=== PATIENT | male | born 1975 | race Caucasian/White ===

== ENCOUNTER 2019-07-30 07:38 | Outpatient (CLI) | payer OTHER, SELFPAY ==
--- NOTE | ~2019-07-30 | XR_ITS ---
XR abdomen/kub 1V 07/30/2019 07:55 Indication: Renal stone Procedure: KUB Comparison: Comparison to multiple prior studies sequentially, with oldest reviewed study dated 03/22. Findings: There is a right renal stone. There is a probable distal right ureteral stone near the expe cted location of the UVJ measuring 4 mm. Bowel gas pattern is nonobstructive. No acute osseous abnorm ality. Impression: 1: Probable distal right ureteral stone measuring 4 mm near the expected location of the UVJ. 2: Right nephrolithiasis. Reviewed, dictated and finalized at location A. Impression: 1: Probable distal right ureteral stone measuring 4 mm near the expected locati on of the UVJ. 2: Right nephrolithiasis.
== END 2019-07-30 07:39 | disposition home or self-care (01) ==
LOC: ANHIMG 07:43
PROVIDERS: PCP Internal Medicine; Visit Provider Urology
DX: N20.0 Calculus of kidney (principal)
CPT/HCPCS: 74018

== ENCOUNTER 2020-11-23 07:07 | Observation (INO) | payer OTHER, SELFPAY ==
[2020-11-23] VITALS (12 sets, daily range): BP systolic 95–144; BP diastolic 64–100; PULSE 59–93; RESP 10–20; TEMP 35.7–37.2; O2SAT 97–100; BMI 27.2
--- NOTE | ~2020-11-23 | CT_ITS ---
EXAMINATION: CT abdomen pelvis wo con DATE: 11/23/2020 07:57 INDICATION: Left flank pain TECHNIQUE: Computed tomography (CT) of the abdomen and pelvis was performed without intravenous contr ast. The dose-length product (DLP) was 203.51 mGy-cm. Automated exposure control and iterative recons truction technique were employed. COMPARISON: 01/24/2019 FINDINGS: The lung bases are clear. The heart size is normal. The liver, spleen, pancreas, gallbladde r, and adrenal glands are normal. There is a 6 mm stone at the left ureteropelvic junction which caus es moderate hydronephrosis. Nonobstructing stones in the mid and and lower pole of the right kidney m easure 6 mm and 8 mm, respectively. A circumaortic left renal vein is noted. No pathologically enlarg ed abdominal or pelvic lymph nodes are identified. There is no free intraperitoneal gas or evidence o f bowel obstruction. There are changes of right hemicolectomy. There is mild lumbar spondylosis. IMPRESSION: 1. 6 mm stone of the left ureteropelvic junction causing moderate hydronephrosis. 2. Nonobstructing right nephrolithiasis. Reviewed, dictated and finalized at location A. IMPRESSION: 1. 6 mm stone of the left ureteropelvic junction causing moderate hydronephrosi s. 2. Nonobstructing right nephrolithiasis.
--- NOTE | ~2020-11-23 | XR_ITS ---
EXAMINATION: XR retrograde pyelo w/stent LT INDICATION: Left ureteral stone TECHNIQUE: 27 intraoperative fluoroscopic images are submitted for review. Total fluoroscopic time is 17.8 seconds. 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 Fluoroscopic images demonst rate retrograde opacification of a mildly dilated left renal collecting system. Final images demonstr ate a left internal ureteral stent in expected position. IMPRESSION: 1. Left ureterolithiasis with left internal ureteral stent placed in expected position. Reviewed, dictated and finalized at location A. IMPRESSION: 1. Left ureterolithiasis with left internal ureteral stent placed in expected p osition.
[2020-11-23 07:23] LABS: Basophils Absolute Auto 0.1 K/mm3 (0.0-0.1); Basophils Percent Auto 0.9 % (0.2-1.2); Eosinophils Absolute Auto 0.2 K/mm3 (0-0.3); Eosinophils Percent Auto 1.9 % (0-4.4); Hematocrit 41.3 % (42.0-52.0); Hemoglobin 13.8 g/dL (14.0-18.0); Immature Granulocyte Absolute 0.03 K/mm3 (0.00-0.031); Immature Granulocyte Percent A 0.4 % (0-0.5); Lymphocytes Absolute Auto 1.48 K/mm3 (0.9-3.2); Lymphocytes Percent Auto 18.8 % (18.3-44.2); Mean Corpuscular HGB Conc 33.4 g/dl (32-36); Mean Corpuscular Volume 89.8 fl (80-100); Mean Platelet Volume 9.5 fl (7.4-10.4); Monocytes Absolute Auto 0.6 K/mm3 (0.1-0.6); Monocytes Percent Auto 7.6 % (2.6-8.5); Neutrophils Absolute Auto 5.6 K/mm3 (1.3-6.7); Neutrophils Percent Auto 70.4 % (45.5-73.1); Platelet Count Result 253 k/mm3 (150-375); Red Cell Distribution Width 12.9 % (11.5-14.5); White Blood Count 7.9 K/mm3 (4.5-10.0)
--- NOTE | 2020-11-23 07:29 | ED.ABDPAIN ---
HPI - Abdominal Pain General Chief Complaint: Abdominal Pain Stated Complaint: Left flank pain Time Seen by Provider: 11/23/20 07:12 Source: patient Mode of arrival: ambulatory Limitations: no limitations History of Present Illness HPI narrative: Patient is a 44-year-old male complaining of left flank pain, sudden onset, 5 out of 10, sharp, nonradiating accompanied by nausea started this morning. Patient states that he has a history of kidney stones. Patient denies any chest pain, shortness of breath, abdominal pain, vomiting, diarrhea, fever or chills. Related Data Home Medications Medication Instructions Recorded Confirmed buspirone 5 mg tablet 5 mg PO DAILY tablet 01/08/20 07/22/20 duloxetine 60 mg capsule,delayed 90 mg PO DAILY cap 01/08/20 07/22/20 release infliximab 100 mg intravenous IVPB 01/08/20 07/22/20 solution multivitamin,fx-zayd-arcosoir 1 tablet PO DAILY 01/08/20 07/22/20 sildenafil 50 mg tablet 50 mg PO DAILY PRN 01/08/20 07/22/20 infliximab-dyyb 100 mg intravenous IV 07/22/20 07/22/20 solution Allergies Allergy/AdvReac Type Severity Reaction Status Date / Time No Known Allergies Allergy Verified 11/23/20 08:57 Review of Systems Review of Systems: All systems reviewed & are unremarkable except as noted in HPI and below Constitutional: Constitutional: Denies body ache(s), Denies chills, Denies excessive sweating, Denies fatigue, Denies fever(s), Denies headache(s), Denies lethargy, Denies malaise, Denies weakness and Denies weight loss Eyes: Eyes: Denies blurry vision, Denies change in vision and Denies loss of vision ENT: Denies dizziness, Denies ear discharge, Denies headache(s), Denies lip swelling, Denies epistaxis, Denies nasal congestion, Denies neck pain, Denies throat swelling and Denies tongue swelling Cardiovascular: Cardiovascular: Denies chest pain, Denies chest pain at rest, Denies chest pain with activity, Denies diaphoresis, Denies rapid heart rate, Denies edema, Denies irregular heart rhythm, Denies lightheadedness, Denies palpitations, Denies dyspnea and Denies dyspnea on exertion Respiratory: Respiratory: Denies chest congestion, Denies cough, Denies hemoptysis, Denies dyspnea and Denies dyspnea on exertion Gastrointestinal: Gastrointestinal: Denies abdominal pain, Denies melena, Denies hematochezia, Denies diarrhea, Denies nausea, Denies vomiting and Denies hematemesis Musculoskeletal: Musculoskeletal: Denies abnormal gait, Denies deformity, Denies joint swelling, Denies limited range of motion, Denies neck pain and Denies numbness Neurologic: Denies Abnormal speech present, Denies abnormal gait, Denies confusion, Denies dizziness, Denies headache(s), Denies focal weakness, Denies loss of vision, Denies numbness, Denies Other visual disturbances, Denies Sensory deficit (Neuro) and Denies weakness Psychiatric: Psychiatric: Denies confusion, Denies depression, Denies auditory hallucinations, Denies homicidal ideation and Denies suicidal ideation Endocrine: Endocrine: Denies cold intolerance, Denies excessive sweating, Denies fatigue, Denies heat intolerance and Denies palpitations Hematologic/Lymphatic: Hematologic/Lymphatic: Denies easy bleeding and Denies easy bruising Allergic/Immunologic: Allergic/Immunologic: Denies lip swelling, Denies throat swelling and Denies tongue swelling [facility] Family History Family History Sibling Patient's brother is in good health Social History Social History Smoking status: Never smoker Second hand tobacco smoke exposure: No Alcohol intake: never Comments Past medical history: Hypertension, kidney stones Family history: Negative for any hypertension, coronary artery disease, diabetes Social history: Non-smoker no EtOH or drug use Exam Const: General: cooperative, healthy appearing, comfortable, no acute distress, well d
[2020-11-23 07:35] LABS: Anion Gap 12 mmol/L (8-16); Blood Urea Nitrogen 17 mg/dL (9-20); Calcium 9.3 mg/dL (8.4-10.2); Carbon Dioxide 21 mmol/L (22-30); Chloride 107 mmol/L (98-107); Estimated CRCL calculation 60 ml/min; Estimated Glomerular Filt Rate 47; Glucose 132 mg/dL (75-110); Potassium 3.5 mmol/L (3.4-5.0); Sodium 140 mmol/L (137-145)
[2020-11-23] MEDS: KETOROLAC 30 MG/ML VIAL (*BKC) IV PUSH (07:44)
[2020-11-23] MEDS: SODIUM CHLORIDE 0.9% IV 1,000 ML 999 ML IV CONT (07:44)
[2020-11-23] MEDS: PROMETHAZINE HCL 25 MG/ML AMPUL 12.5 MG IV PUSH (07:45)
[2020-11-23] MEDS: ONDANSETRON INJ 4 MG/2 ML VIAL IV PUSH ×2 (08:18→09:37)
[2020-11-23 08:44] LABS: Add Urine Microscopic? YES; Appearance Urine Cloudy (Clear); Bacteria Urine Trace /hpf; Bilirubin Urine Negative (Negative); Blood Urine 3+ (Negative); Color Urine Amber (Yellow); Glucose Urine UA Negative (Negative); Ketones Urine Negative (Negative); Leukocyte Esterase Ur Negative LEU/UL (Negative); Mucus Urine Heavy /lpf; Nitrate Urine Negative (Negative); Protein Urine 2+ mg/dL (Negative); RBC Urine >75 /hpf (0-2); Urobilinogen Urine Negative mg/dL (<2.0); WBC Urine 21-30 /hpf
[2020-11-23 08:45] LABS: Specific Grav Ur 1.031 (1.001-1.035)
[2020-11-23] MEDS: LACTATED RINGERS 1,000 ML 999 ML IV CONT (09:07)
[2020-11-23] MEDS: HYDROmorphone HCL INJ (*CRX) 1 MG/ML SYR 0.5 MG IV PUSH (09:38)
--- NOTE | 2020-11-23 10:30 | PC.NURSE ---
Report called to third floor room 344, Cee RN
[2020-11-23] MEDS: LACTATED RINGERS 1,000 ML 30 ML IV CONT ×2 (11:10→12:02)
--- NOTE | 2020-11-23 11:17 | WPDURCON ---
Assessment and Plan Assessment and plan (1) Calculus of left ureter: Onset Date: ~11/23/20 Code(s): N20.1 - Calculus of ureter Status: Acute Assessment and Plan: Patient with 6mm Left UPJ stone and elevated Cr as well as 6 & 8mm RIGHT nonobstructing stones. Patient with persistent PO intolerance PLAN: -Admit to hospitalist for pain control, management of PO intoelrance, and hydration for JED -Keep NPO -Will add on for Cysto, Left Retrograde Pyelogram, Left Ureteral Stent -Patient will need outpatient stone surgery with either his established Urologist, Dr. Paula/Jonatan, or one of their partners who cover [facility] facilities (will also need eventual Right Renal Stones addressed, as well) (2) Calculus of kidney: Code(s): N20.0 - Calculus of kidney Status: Acute Urology Consult Note HPI Date Seen: 11/23/20 Primary Care Provider: Brodie Fierro, Consult Narrative Narrative: Ector Phan is a 44 year old male, established patient of Drs. Keith and Nisa, who has a history of kidney stones. He presents to the ER with PO intolerance and left flank pain for the past day. No fevers. He has required ESWL in the past. He last saw Dr. Paula 1 year ago, was to follow up but it does not appear he did. He has had ESWL in the past. He works at [employer] so has had his cases at [facility] facilities in the past although they live 5 minutes from [place]. He has also had stents in the past, and he and his report that his only issue with stents is nausea. In the ER, his CT AP shows a 6mm Left UPJ stone as well as a 6 & 8 mm RIGHT renal stone. His Cr is 1.6, normal serum WBC, with a UA that has both WBC and RBC, but is nit negative. Review of Systems Review of Systems: All systems reviewed & are unremarkable except as noted in HPI and below PMFSH Family History Family History Sibling Patient's brother is in good health Social History Social History Smoking status: Never smoker Second hand tobacco smoke exposure: No Alcohol intake: never Meds Home Medications and Allergies Home Medications Medication Instructions Recorded Confirmed Type buspirone 5 mg tablet 5 mg PO DAILY tablet 01/08/20 07/22/20 History duloxetine 60 mg capsule,delayed 90 mg PO DAILY cap 01/08/20 07/22/20 History release infliximab 100 mg intravenous IVPB 01/08/20 07/22/20 History solution multivitamin,ln-akos-wgxlneeo 1 tablet PO DAILY 01/08/20 07/22/20 History sildenafil 50 mg tablet 50 mg PO DAILY PRN 01/08/20 07/22/20 History infliximab-dyyb 100 mg intravenous IV 07/22/20 07/22/20 History solution lisinopril 20 mg tablet 20 mg PO DAILY #90 tablet 10/05/20 Rx Allergies Allergy/AdvReac Type Severity Reaction Status Date / Time No Known Allergies Allergy Verified 11/23/20 08:57 Vital Signs Vital Signs - 24 hr 11/23/20 07:20 11/23/20 09:09 Temperature 36.8 C Pulse Rate 59 L 82 Respiratory Rate 18 18 Blood Pressure 143/100 H 144/87 H Pulse Oximetry 100 100 Exam Const: General: no acute distress Orientation/consciousness: oriented to person, oriented to place and oriented to time HENMT: Head: normal to inspection Eyes: General: appearance normal, both eyes and all related structures Resp: Effort & Inspection: normal respiratory effort Neuro: General: oriented to person, oriented to place and oriented to time Results Labs CBC & Chem 7: 11/23/20 07:17 11/23/20 07:17 Labs: Short CBC 11/23/20 Range/Units 07:17 WBC 7.9 (4.5-10.0) K/mm3 Hgb 13.8 L (14.0-18.0) g/dL Hct 41.3 L (42.0-52.0) % Plt Count 253 (150-375) k/mm3 BMP 11/23/20 07:17 Sodium 140 Potassium 3.5 Chloride 107 Carbon Dioxide 21 L BUN 17 Creatinine 1.60 H Glucose 132 H Calcium 9.3 Urine 11/23/20 Range/Units 08:34
--- NOTE | 2020-11-23 11:18 | WPDHPUPDATE1 ---
History and Physical Update Update Date/Time: 11/23/20 11:18 History and Physical has been reviewed, including an updated exam of the patient. There are NO changes in the patient's condition. Risks, benefits, and alternatives have been discussed and questions answered. Patient agrees to proceed with procedure.
--- NOTE | 2020-11-23 11:18 | WPDANESEPPF ---
Anes - Initial Pre Proc Eval Procedure: Operation Date: 11/23/20 11:15 Proposed Procedures p Cysto, RPG, Stone Ext, Stent Placement(Left) - Jf Vidal MD Date/Time: 11/23/20 11:18 Surgeon: Gareth Davis MD Pre Op Diagnosis: Acute Obstructive Uropathy, Hydronephrosis Patient Data Age: 44 Gender: M Height: 1.85 m Weight: 102.2 kg Last Vital Signs Temp 36.8 C 11/23/20 07:20 Pulse 82 11/23/20 09:09 Resp 18 11/23/20 09:09 BP 144/87 H 11/23/20 09:09 Pulse Ox 100 11/23/20 09:09 Allergies Allergy/AdvReac Type Severity Reaction Status Date / Time No Known Allergies Allergy Verified 11/23/20 08:57 Home Medications Medication Instructions Recorded Confirmed Type buspirone 5 mg tablet 5 mg PO DAILY tablet 01/08/20 07/22/20 History duloxetine 60 mg capsule,delayed 90 mg PO DAILY cap 01/08/20 07/22/20 History release infliximab 100 mg intravenous IVPB 01/08/20 07/22/20 History solution multivitamin,dk-uojt-irswkdpd 1 tablet PO DAILY 01/08/20 07/22/20 History sildenafil 50 mg tablet 50 mg PO DAILY PRN 01/08/20 07/22/20 History infliximab-dyyb 100 mg intravenous IV 07/22/20 07/22/20 History solution lisinopril 20 mg tablet 20 mg PO DAILY #90 tablet 10/05/20 Rx Laboratory Tests 11/23/20 11/23/20 11/23/20 07:17 07:17 08:34 WBC 7.9 K/mm3 K/mm3 (4.5-10.0) RBC 4.60 M/mm3 M/mm3 (4.6-6.20) Hgb 13.8 g/dL L g/dL (14.0-18.0) Hct 41.3 % L % (42.0-52.0) MCV 89.8 fl fl (80-100) MCH 30.0 pg pg (26-34) MCHC 33.4 g/dl g/dl (32-36) RDW 12.9 % % (11.5-14.5) Plt Count 253 k/mm3 k/mm3 (150-375) MPV 9.5 fl fl (7.4-10.4) Immature Gran % (Auto) 0.4 % % (0-0.5) Neut % (Auto) 70.4 % % (45.5-73.1) Lymph % (Auto) 18.8 % % (18.3-44.2) Whiteside % (Auto) 7.6 % % (2.6-8.5) Eos % (Auto) 1.9 % % (0-4.4) Baso % (Auto) 0.9 % % (0.2-1.2) Lymph # (Auto) 1.48 K/mm3 K/mm3 (0.9-3.2) Whiteside # (Auto) 0.6 K/mm3 K/mm3 (0.1-0.6) Eos # (Auto) 0.2 K/mm3 K/mm3 (0-0.3) Baso # (Auto) 0.1 K/mm3 K/mm3 (0.0-0.1) Abs Immat Gran (auto) 0.03 K/mm3 K/mm3 (0.00-0.031) Absolute Neuts (auto) 5.6 K/mm3 K/mm3 (1.3-6.7) Absolute Nucleated RBC 0.0 K/mm3 K/mm3 (0.0-0.012) Nucleated RBC % 0.0 % % (0.0-0.2) Sodium 140 mmol/L mmol/L (137-145) Potassium 3.5 mmol/L mmol/L (3.4-5.0) Chloride 107 mmol/L mmol/L (98-107) Carbon Dioxide 21 mmol/L L mmol/L (22-30) Anion Gap 12 mmol/L mmol/L (8-16) BUN 17 mg/dL mg/dL (9-20) Creatinine 1.60 mg/dL H mg/dL (0.7-1.3) Estim Creat Clear Calc 60 ml/min ml/min Estimated GFR 47 L (59 - ) Glucose 132 mg/dL H mg/dL (75-110) Calcium 9.3 mg/dL mg/dL (8.4-10.2) Urine Color Mia (Yellow) Urine Appearance Cloudy H (Clear) Urine pH 5.0 (5.0-9.0) Ur Specific Lithia 1.031 (1.001-1.035) Urine Protein 2+ mg/dL H mg/dL (Negative) Urine Glucose (UA) Negative mg/dL mg/dL (Negative) Urine Ketones Negative mg/dL mg/dL (Negative) Ur Blood (Man) 3+ H (Negative) Urine Nitrate Negative (Negative) Urine Bilirubin Negative (Negative) Urine Urobilinogen Negative mg/dL mg/dL (<2.0) Leukocyte Esterase Rfl Negative SEE/UL SEE/UL (Negative) Urine RBC >75 /hpf H /hpf (0-2) Urine WBC 21-30 /hpf H /hpf Urine Bacteria Trace /hpf /hpf Urine Mucus Heavy /lpf H /lpf Patient hx anesthesia problems: none Family hx anesthesia problems: none PMFSH Past Medical History Medical History (Reviewed 11/23/20 @ 11:19 by Damien Banuelos
--- NOTE | 2020-11-23 11:21 | W.PM.PROC2 ---
Procedure Note - Detailed Date of Procedure 11/23/20 Pre-op Diagnosis Preoperative Diagnosis: Ureteral Calculus (N20.1) Postoperative Diagnosis: Same Procedures Performed:: 1. Cystoscopy, Left Retrograde Pyelogram, Left Ureteral Stent ([id number]) Findings: Radiopaque stone; stent placed Surgeon: Jf Vidal MD Anesthesia: General Procedure: Prior to the operation an informed consent was obtained. The patient was brought back to the operative suite and a detailed timeout was performed. General anesthesia was induced without complication. The patient was administered IV antibiotics in the prophylactic form. The patient was positioned in the dorsal lithotomy position with close attention to all pressure points and was prepped and draped in sterile fashion. We began the case using a rigid cystoscope to gain access into the bladder under direct visualization per urethra. Cystoscopy was unremarkable. We turned our attention to the left ureteral orifice and cannulated it using a 5 Bengali open-ended ureteral catheter and carpooling.comson wire. We radiologically confirmed the wire to pass up into the renal pelvis before performing a retrograde pyelogram to better delineate the renal pelvis. We could see the 6mm Left UPJ stone as it was radiopaque and limited contrast reaching the kidney. With our wire in place, we placed a 6 east timorese, variable length, double-J ureteral stent with no string. We confirmed excellent position fluoroscopically. The patient's bladder was emptied at the conclusion of the case and the patient tolerated the procedure well. This note was created with the assistance of voice-recognition software and may contain phonetic errors. PLAN: -PACU, transfer to floor for observation given his JED, PO intolerance, and history of PO intolerance with a stent -Will arrange for outpatient stone treatment at [facility] facility due to his insurance coverage Post-op Diagnosis same Procedure Performed Procedures Performed: 1. Cystoscopy, Left Retrograde Pyelogram, Left Ureteral Stent ([id number]) Surgeon Jf Vidal MD Description of Procedure Prior to the operation an informed consent was obtained. The patient was brought back to the operative suite and a detailed timeout was performed. General anesthesia was induced without complication. The patient was administered IV antibiotics in the prophylactic form. The patient was positioned in the dorsal lithotomy position with close attention to all pressure points and was prepped and draped in sterile fashion. We began the case using a rigid cystoscope to gain access into the bladder under direct visualization per urethra. Cystoscopy was unremarkable. We turned our attention to the left ureteral orifice and cannulated it using a 5 Bengali open-ended ureteral catheter and Bentson wire. We radiologically confirmed the wire to pass up into the renal pelvis before performing a retrograde pyelogram to better delineate the renal pelvis. We could see the 6mm Left UPJ stone as it was radiopaque and limited contrast reaching the kidney. With our wire in place, we placed a 6 east timorese, variable length, double-J ureteral stent with no string. We confirmed excellent position fluoroscopically. The patient's bladder was emptied at the conclusion of the case and the patient tolerated the procedure well. This note was created with the assistance of voice-recognition software and may contain phonetic errors. PLAN: -PACU, transfer to floor for observation given his JED, PO intolerance, and history of PO intolerance with a stent -Will arrange for outpatient stone treatment at [facility] facility due to his insurance coverage
[2020-11-23] MEDS: LIDOCAINE HCL 2% GEL UROJET 10 ML PKG MUCOUS MEM (11:46)
--- NOTE | 2020-11-23 11:56 | PM.OP ---
Procedure Note - Brief Procedure Note - Brief Date of procedure: 11/23/20 Pre-op diagnosis: Acute Obstructive Uropathy, Hydronephrosis Surgeon: Preoperative Diagnosis: Ureteral Calculus (N20.1) Postoperative Diagnosis: Same Procedures Performed:: 1. Cystoscopy, Left Retrograde Pyelogram, Left Ureteral Stent ([id number]) Findings: Radiopaque 6mm left UPJ stone; 6Fr variable length left ureteral stent placed Specimens: None Implants: Left ureteral stent EBL: minimal Anesthesia: General Complications: None Dispo: PACU, Floor Surgeon: Jf Vidal MD
--- NOTE | 2020-11-23 13:15 | ADMGEN ---
This patient, Ector Phan, was admitted to Medical Room 344-01. Patient/family oriented to hospital policies and general routines including ID bracelet, bed and alarms, visiting hours, pain management, procedures, bathroom and other care routines, personal items, smoking policy, room service/diet, and visiting hours. Information on how to activate the Rapid Response Team has been discussed. Patient/Family are encouraged to report perceived risks to care and to ask questions if they do not understand what they are told or what they should do.
--- NOTE | 2020-11-23 13:48 | PM.IMHP ---
H&P: HPI History of Present Illness Date/Time: 11/23/20 13:49 Chief Complaint: Abdominal pain Narrative: 44-year-old male with history of kidney stones and Crohn's disease who presents with complaints of abdominal pain. Patient woke up around 5:00 a.m. this morning with left-sided flank/back pain. Pain was very similar to prior episodes when he has had kidney stones. No hematuria but urine was dark. He had nausea and vomiting which is not uncommon for him when he has kidney stones. No fever or chills. His most recent blood work on October 21, 2020 showed a creatinine 1.2. He has been known to have elevated creatinine values when he has kidney stones. Patient states his Crohn's disease is better controlled with the infliximab. Still has diarrhea 5 to 6 times a day and occasional hematochezia but no further abdominal pain. His weight has been stable. He is due for colonoscopy in December. He has no other complaints. Complete review of systems is negative with the exception of occasional acid reflux symptoms after eating and then laying down. Also has a mole on his back that his has been trying to have have evaluated. He is under lot of stress at work because of a recent change in the computer system. Because of the flank/back pain, patient presented to the emergency room for evaluation. In the emergency room, patient was hemodynamically stable. Blood pressure was elevated at 143/100. Creatinine was 1.6. Urine had 3+ blood in greater than [address] scan showed a 6 mm stone in the left UPJ causing moderate hydronephrosis as well as nonobstructing right nephrolithiasis. patient received 2 doses Zofran in the emergency room. He has not had any further nausea vomiting since. He also received IV fluids, Rocephin x1 and dilaudid. Patient was taken to the OR where he underwent stent placement. Patient was subsequently admitted for further care due to his nausea and vomiting and elevated creatinine. He has not eaten since the procedure but he is hungry. Review of Systems Review of Systems: All systems reviewed & are unremarkable except as noted in HPI and below PMFSH Past Medical History Medical History (Updated 11/23/20 @ 15:25 by Julien Davis MD) Crohn's disease, unspecified, without complications Depression with anxiety History of kidney stones with multiple lithotripsies Hypertension Surgical History Surgical History (Updated 11/23/20 @ 13:54 by Julien Davis MD) History of colon resection 1990 History of hemorrhoidectomy 2003 History of inguinal hernia repair Family History Family History (Updated 11/23/20 @ 15:10 by Julien Davis MD) Sibling Patient's brother is in good health Father Heart failure Acute myocardial infarction, Onset Age: 42 Mother COPD (chronic obstructive pulmonary disease) Emphysema lung Grandparent Stomach cancer Other Stomach cancer Social History Social History (Updated 11/23/20 @ 15:11 by Julien Davis MD) Social History: Patient lives at home with his . Lifelong nonsmoker. Rarely drinks alcohol. Denies drug use. Full code. He works in [employer] at [employer]. He nominates his to be the individual who would make medical decisions for him if he is unable. Smoking status: Never smoker Second hand tobacco smoke exposure: No Alcohol intake: never Spiritual care concerns: No Meds Home Medications and Allergies Home Medications Medication Instructions Recorded Confirmed Type buspirone 5 mg tablet 15 mg PO DAILY tablet 01/08/20 11/23/20 History duloxetine 60 mg capsule,delayed 90 mg PO DAILY cap 01/08/20 11/23/20 History release multivitamin,or-zqff-lwkuzfdb 1 tablet PO DAILY 01/08/20 11/23/20 History sildenafil 50 mg tablet 50 mg PO DAILY PRN 01/08/20 11/23/20 History infliximab-dyyb 100 mg intravenous 100 mg IV USEASDIRECTD 07/22/20 11/23/20 History solution lisinopril 20 mg tablet 20 mg PO DAILY #9
[2020-11-23] MEDS: SODIUM CHLORIDE 0.9% IV 1,000 ML 100 ML IV CONT (15:57)
[2020-11-23] MEDS: busPIRone HCL 10 MG, busPIRone HCL 5 MG 15 MG PO (18:57)
[2020-11-23] MEDS: DULoxetine HCL 30 MG CAPSULE.DR 90 MG PO (18:58)
[2020-11-24] MEDS: SODIUM CHLORIDE 0.9% IV 1,000 ML 100 ML IV CONT (02:07)
[2020-11-24 05:19] VITALS: BP 128/77; PULSE 76; RESP 17; TEMP 36.1; O2SAT 97
[2020-11-24 05:48] LABS: Anion Gap 7 mmol/L (8-16); Blood Urea Nitrogen 14 mg/dL (9-20); Calcium 8.5 mg/dL (8.4-10.2); Carbon Dioxide 22 mmol/L (22-30); Chloride 112 mmol/L (98-107); Estimated CRCL calculation 75 ml/min; Estimated Glomerular Filt Rate 60; Glucose 110 mg/dL (75-110); Potassium 3.7 mmol/L (3.4-5.0); Sodium 141 mmol/L (137-145)
--- NOTE | 2020-11-24 07:47 | WPDANESPN ---
Anes - Prog Note Post-Op Date/Time: 11/24/20 07:47 Cardiovascular status: normal Respiratory status: normal Airway patency: baseline Mental status: baseline Post-Op hydration status: normal Vital Signs: Last Vital Signs Temp 36.1 C L 11/24/20 05:19 Pulse 76 11/24/20 05:19 Resp 17 11/24/20 05:19 BP 128/77 11/24/20 05:19 Pulse Ox 97 11/24/20 05:19 Pain Score (VAS): 0/10 I/O: Intake & Output 11/23/20 11/23/20 11/24/20 15:59 23:59 07:59 Intake Total 2550 480 1736 Output Total 950 525 800 Balance 1600 -45 936 Laboratory Tests 11/23/20 07:17 11/24/20 05:20 11/23/20 11/24/20 08:34 05:20 Sodium 141 Potassium 3.7 Chloride 112 H Carbon Dioxide 22 Anion Gap 7 L BUN 14 Creatinine 1.30 Estim Creat Clear Calc 75 Estimated GFR 60 Glucose 110 Calcium 8.5 Urine Color Mia Urine Appearance Cloudy H Urine pH 5.0 Ur Specific [place] 1.031 Urine Protein 2+ H Urine Glucose (UA) Negative Urine Ketones Negative Ur Blood (Man) 3+ H Urine Nitrate Negative Urine Bilirubin Negative Urine Urobilinogen Negative Leukocyte Esterase Rfl Negative Urine RBC >75 H Urine WBC 21-30 H Urine Bacteria Trace Urine Mucus Heavy H Post-procedural complaints: none Patient Feedback: Patient satisfied with anesthetic care.
[2020-11-24] MEDS: MULTIVITS W-FE,MIN CHEWABLE TABLET 1 TABLET PO (08:52)
--- NOTE | 2020-11-24 13:00 | WPDUROPN2 ---
Progress Note: A&P Assessment and Plan (1) Calculus of left ureter: Onset Date: ~11/23/20 Code(s): N20.1 - Calculus of ureter Status: Acute Assessment and Plan: Patient ok to discharge home today, will call to schedule definitive stone management at [facility]. Subjective Subjective Date/Time Seen: 11/24/20 13:00 POD #1 Cystoscopy, left retrograde pyelogram, left stent placement. Patient doing very well, only c/o nausea and pain with urination from his stent, otherwise he is doing well and wants to go home. He is tolerating his diet and activity in the room well. Review of Systems Cardiovascular: Cardiovascular: Denies chest pain Respiratory: Respiratory: Reports no additional respiratory complaints Gastrointestinal: Gastrointestinal: Reports abdominal pain, Reports nausea and Denies vomiting Genitourinary: Genitourinary: Denies hematuria, Reports dysuria, Reports flank pain, Reports urinary frequency and Denies urinary urgency Exam Resp: Effort & Inspection: normal respiratory effort Cardio: Rate: regular rate GI: GI Palp: Yes Soft to palpation and No Tenderness to palpation present (GI) : General: Yes CVA tenderness and Yes no CVA tenderness Extrem: General: no edema Objective Data Vital Signs Vital Signs: Vital Signs - 24 hr 11/23/20 13:20 11/23/20 13:40 11/23/20 14:10 Temperature 98.9 F 96.8 F L 96.3 F L Pulse Rate 77 78 65 Respiratory Rate 20 18 18 Blood Pressure 132/92 H 128/89 135/85 Pulse Oximetry 98 100 99 11/23/20 15:10 11/23/20 20:50 11/23/20 21:30 Temperature 96.3 F L 97.6 F Pulse Rate 65 90 Respiratory Rate 18 18 Blood Pressure 135/85 136/91 H Pulse Oximetry 99 97 97 11/24/20 05:19 Temperature 97 F L Pulse Rate 76 Respiratory Rate 17 Blood Pressure 128/77 Pulse Oximetry 97 Intake/Output Intake/Output: Intake & Output 11/21/20 11/22/20 11/23/20 11/24/20 23:59 23:59 23:59 23:59 Intake Total 3030 2036 Output Total 1475 800 Balance 1555 1236 Meds/Results Medications: Active Medications Generic Name Dose Route Start Last Admin Trade Name Freq PRN Reason Stop Dose Admin Acetaminophen 650 mg 11/23/20 15:25 Acetaminophen 325 Mg Tablet PO Q6H PRN Mild Pain (1-3) or Fever Buspirone HCl 10 mg/ Buspirone 15 mg 11/23/20 14:00 11/23/20 18:57 HCl 5 mg PO 15 mg Q24H TIGRE Administration Duloxetine HCl 90 mg 11/23/20 14:00 11/23/20 18:58 Duloxetine Hcl 30 Mg Capsule.Dr PO 90 mg Q24H TIGRE Administration Multivitamins/Minerals 1 tablet 11/24/20 09:00 11/24/20 08:52 Multivits W-Fe,Min Chewable Tablet PO 1 tablet QAM TIGRE Administration Ondansetron HCl 4 mg 11/23/20 15:25 Ondansetron Inj 4 Mg/2 Ml Vial IV PUSH Q6H PRN Nausea And Vomiting Radiology Results: ITS Impressions Abdomen/Pelvis CT 11/23/20 08:03 IMPRESSION: 1. 6 mm stone of the left ureteropelvic junction causing moderate hydronephrosis. 2. Nonobstructing right nephrolithiasis. Retrograde Pyelogram 11/23/20 14:28 IMPRESSION: 1. Left ureterolithiasis with left internal ureteral stent placed in expected position. Labs Labs: Laboratory Results - last 24 hr 11/24/20 05:20 Sodium 141 Potassium 3.7 Chloride 112 H Carbon Dioxide 22 Anion Gap 7 L BUN 14 Creatinine 1.30 Estim Creat Clear Calc 75 Estimated GFR 60 Glucose 110 Calcium 8.5
[2020-11-24] MEDS: DULoxetine HCL 30 MG CAPSULE.DR 90 MG PO (13:01)
[2020-11-24] MEDS: busPIRone HCL 10 MG, busPIRone HCL 5 MG 15 MG PO (13:01)
--- NOTE | 2020-11-24 13:22 | PM.DS ---
DS: Admitting Diagnosis Admitting Diagnosis Admitting Diagnosis: Abdominal pain DS: Discharge Diagnosis Discharge Diagnosis (1) Acute unilateral obstructive uropathy: Code(s): N13.9 - Obstructive and reflux uropathy, unspecified Status: Acute (2) Hydronephrosis concurrent with and due to calculi of kidney and ureter: Code(s): N13.2 - Hydronephrosis with renal and ureteral calculous obstruction Status: Acute (3) JED (acute kidney injury): Code(s): N17.9 - Acute kidney failure, unspecified Status: Acute (4) Nausea & vomiting: Code(s): R11.2 - Nausea with vomiting, unspecified Status: Acute (5) Hypertension: Code(s): I10 - Essential (primary) hypertension Status: Acute (6) Crohn's disease, unspecified, without complications: Code(s): K50.90 - Crohn's disease, unspecified, without complications Status: Acute DS: Summary Hospital Course Reason for hospitalization: 44yo male with hx of kidney stones here for abdominal pain. Please see H&P for details. Hospital Course: Patient presented to the emergency room for left flank/back pain. In the emergency room, patient was hemodynamically stable. Blood pressure was elevated at 143/100. Creatinine was 1.6. Urine had 3+ blood in greater than [address] scan showed a 6 mm stone in the left UPJ causing moderate hydronephrosis as well as nonobstructing right nephrolithiasis. Patient received 2 doses Zofran in the emergency room. He also received IV fluids, Rocephin x1 and dilaudid. Patient was taken to the OR where he underwent stent placement later that same day. Patient was subsequently admitted for further care due to his nausea and vomiting and elevated creatinine. He did not had any further nausea or vomiting after the procedure. He was continued on IV fluids. His Cr improved to 1.3 today. He was eating without symptoms. No further pain. He feels ready for discharge. Status at Discharge Cognitive/behavioral status at discharge: stable Time Spent with Patient Time attestation: Total time spent providing and/or coordinating discharge services:35 minutes Time spent: Greater than 30 minutes Exam Narrative: Exam Narrative: AF 97.0 128/77 76 17 97% ra Gen - NARD Chest - CTA bilaterally, nml RR CV - RRR S1/S2 Abd - soft, NT/ND, +BS Ext - no pedal edema Psych - normal mood and affect. Skin - warm and dry. Approx 1cm oval mole on the right midback with distinct borders and variation in color within the lesion DS: Data Data Completed and Pending Labs on day of discharge: Labs from last 24 hours 11/24/20 05:20 Sodium 141 Potassium 3.7 Chloride 112 H Carbon Dioxide 22 Anion Gap 7 L BUN 14 Creatinine 1.30 Estim Creat Clear Calc 75 Estimated GFR 60 Glucose 110 Calcium 8.5 Discharge Plan Discharge Attending physician on discharge: Julien Davis Consulting providers: Jf Vidal Discharging Clinician: Julien Davis Anticipated Discharge Date/Time: 11/24/20 13:32 Patient Disposition: Home, Self-Care Activity: as tolerated Diet: regular Discharge Instructions: Urology Instructions: Will call to schedule procedure at [facility]. Call if you develop a fever of > 102, dysuria, urgency, frequency or worsening blood in the urine. Some blood, dysuria and frequency is expected with your stent in place. Please avoid large gathering, wear face coverings in public and practice social distance. Take precautions to avoid falls. Rise slowly from a lying or sitting position. Pause before standing or walking. Contact your doctor or come to the Emergency Room if you have recurrent back pain or other worrisome symptoms. Avoid NSAIDs (ibuprofen, naproxen, Aleve). Tylenol is safe to take. Follow-up with your primary care doctor in 1-2 weeks. Please call for appointment. Patient Instructions: Antibiotic Form, Kidney Stones (DC), Pain M
--- NOTE | 2020-11-25 08:28 | PC.NURSE ---
Urine cx is negative. Dr. Ryan caro.
== END 2020-11-24 14:30 | disposition home or self-care (01) ==
LOC: ANHED 07:22 → ANH3MED 10:20
PROVIDERS: Urology; Admitting Provider Internal Medicine; Emergency Provider Emergency Medicine; PCP Internal Medicine; Visit Provider Internal Medicine
PROC: (CPT 52352; principal; 2020-11-23 11:15)
DX: N13.2 Hydronephrosis with renal and ureteral calculous obstruction (principal); K50.90 Crohn's disease, unspecified, without complications; R11.2 Nausea with vomiting, unspecified; Z87.442 Personal history of urinary calculi; I10 Essential (primary) hypertension
CPT/HCPCS: 52332; 36415; 74176; 74420; 80048; 81001; 85025; 87086; 96360; 96361; 96365; 96375; 96376; 99285; A9270; C1758; C1769; C2617; G0378; J0696; J1100; J1170; J1885; J2250; J2405; J2550; J2704; J3010; J7030; J7120; Q9966

== ENCOUNTER 2021-01-23 09:55 | Outpatient (CLI) | payer OTHER, SELFPAY ==
[2021-01-23 10:36] LABS: Alanine Aminotransferase 69 U/L (4-50); Albumin Level 4.2 g/dL (3.5-5.1); Alkaline Phosphatase 64 U/L (38-126); Anion Gap 6 mmol/L (8-16); Aspartate Amino Transferase 43 U/L (17-59); Bilirubin,Total 0.8 mg/dL (0.2-1.3); Blood Urea Nitrogen 11 mg/dL (9-20); Carbon Dioxide 27 mmol/L (22-30); Chloride 108 mmol/L (98-107); Cholesterol 195 mg/dL (0-200); Estimated Glomerular Filt Rate 59; Glucose 101 mg/dL (65-110); HDL Direct 45 mg/dL; Potassium 3.4 mmol/L (3.4-5.0); Sodium 141 mmol/L (137-145); Triglycerides 183 mg/dL (<150)
[2021-01-23 10:46] LABS: LDL Cholesterol Direct 99 mg/dL
[2021-01-23 11:06] LABS: Prostate Specific Antigen 1.9 ng/mL (< OR = 4.0)
[2021-01-23 11:45] LABS: Folic Acid > 20.0 ng/mL (2.76->20)
== END 2021-01-23 09:56 | disposition home or self-care (01) ==
LOC: ANHLAB 10:00
PROVIDERS: PCP Internal Medicine; Visit Provider Internal Medicine
DX: Z12.5 Encounter for screening for malignant neoplasm of prostate (principal); E53.8 Deficiency of other specified B group vitamins; Z00.00 Encounter for general adult medical examination without abnormal findings
CPT/HCPCS: 36415; 80053; 80061; 82607; 82746; 84153; 84443; G0103

== ENCOUNTER 2021-05-25 22:46 | Emergency (ER) | payer OTHER, SELFPAY ==
--- NOTE | ~2021-05-25 | CT_ITS ---
EXAMINATION: CT abdomen pelvis wo con DATE: 05/26/2021 04:19 INDICATION: Right flank pain. History of kidney stones. TECHNIQUE: Computed tomography (CT) of the abdomen and pelvis was performed without intravenous contr ast. Automated exposure control and iterative reconstruction technique were employed. Exam dose: 245 .62 mGy-cm total exam DLP. COMPARISON: 11/23/2020 CT abdomen pelvis FINDINGS: The lung bases are clear. Normal heart size. No pericardial or pleural effusion. The gallbladder is present. No hepatic, splenic, pancreatic, and adrenal or renal space-occupying mas s lesion is evident. 2.5 mm and 7.8 mm nonobstructing right renal calculi. Approximately 6 mm distal right ureteral calculus with proximal prominent right hydroureteronephrosis and perinephric and periureteral stranding. There are 2 approximately 3 mm or smaller nonobstructing left renal calculi. No left ureteral calculi or left hydroureteronephrosis. The urinary bladder is unremarkable. Prostate calcifications. No bowel obstruction or intraperitoneal free air. Small fat-containing umbilical hernia. Small fat-containing right inguinal hernia. No suspicious osteolytic or osteoblastic lesions. IMPRESSION: 6 mm distal right ureteral calculus with prominent proximal right hydroureteronephrosis and right perinephric and periureteral stranding Bilateral nonobstructive nephrolithiasis Reviewed, dictated and finalized at [facility]. Reviewed, dictated and finalized at [facility]. [facility]
[2021-05-25 22:48] VITALS: BP 161/97; PULSE 64; RESP 14; TEMP 36.2; O2SAT 100
[2021-05-26 01:38] VITALS: BP 149/92; PULSE 69; RESP 16; O2SAT 97
--- NOTE | 2021-05-26 04:14 | ED.ABDPAIN ---
HPI - Abdominal Pain General Chief Complaint: Abdominal Pain Stated Complaint: kidney stone, pain right side Time Seen by Provider: 05/26/21 04:14 Source: patient Mode of arrival: ambulatory Limitations: no limitations History of Present Illness HPI narrative: Patient is a 45-year-old male complaining of right flank pain, 1 out of 10, was 7 out of 10, sharp, radiating to right lower quadrant accompanied by decreased urination that started yesterday. Patient denies any chest pain, shortness of breath, nausea, vomiting, diarrhea, fever or chills. Related Data Home Medications Medication Instructions Recorded Confirmed buspirone 5 mg tablet 15 mg PO DAILY tablet 01/08/20 01/27/21 duloxetine 60 mg capsule,delayed 90 mg PO DAILY cap 01/08/20 01/27/21 release multivitamin,my-kykq-tdcrqzuq 1 tablet PO DAILY 01/08/20 01/27/21 infliximab-dyyb 100 mg intravenous 100 mg IV USEASDIRECTD 07/22/20 01/27/21 solution Allergies Allergy/AdvReac Type Severity Reaction Status Date / Time No Known Allergies Allergy Verified 05/26/21 04:35 Review of Systems Review of Systems: All systems reviewed & are unremarkable except as noted in HPI and below Constitutional: Constitutional: Denies body ache(s), Denies chills, Denies excessive sweating, Denies fatigue, Denies fever(s), Denies headache(s), Denies lethargy, Denies malaise, Denies weakness and Denies weight loss Eyes: Eyes: Denies blurry vision, Denies change in vision and Denies loss of vision ENT: Denies dizziness, Denies ear discharge, Denies headache(s), Denies lip swelling, Denies epistaxis, Denies nasal congestion, Denies neck pain, Denies throat swelling and Denies tongue swelling Cardiovascular: Cardiovascular: Denies chest pain, Denies chest pain at rest, Denies chest pain with activity, Denies diaphoresis, Denies rapid heart rate, Denies edema, Denies irregular heart rhythm, Denies lightheadedness, Denies palpitations, Denies dyspnea and Denies dyspnea on exertion Respiratory: Respiratory: Denies chest congestion, Denies cough, Denies hemoptysis, Denies dyspnea and Denies dyspnea on exertion Gastrointestinal: Gastrointestinal: Denies abdominal pain, Denies melena, Denies hematochezia, Denies diarrhea, Denies nausea, Denies vomiting and Denies hematemesis Musculoskeletal: Musculoskeletal: Denies abnormal gait, Denies deformity, Denies joint swelling, Denies limited range of motion, Denies neck pain and Denies numbness Neurologic: Denies Abnormal speech present, Denies abnormal gait, Denies confusion, Denies dizziness, Denies headache(s), Denies focal weakness, Denies loss of vision, Denies numbness, Denies Other visual disturbances, Denies Sensory deficit (Neuro) and Denies weakness Psychiatric: Psychiatric: Denies confusion, Denies depression, Denies auditory hallucinations, Denies homicidal ideation and Denies suicidal ideation Endocrine: Endocrine: Denies cold intolerance, Denies excessive sweating, Denies fatigue, Denies heat intolerance and Denies palpitations Hematologic/Lymphatic: Hematologic/Lymphatic: Denies easy bleeding and Denies easy bruising Allergic/Immunologic: Allergic/Immunologic: Denies lip swelling, Denies throat swelling and Denies tongue swelling PMFSH Past Medical History Medical History Crohn's disease, unspecified, without complications Depression with anxiety History of kidney stones with multiple lithotripsies Hypertension Surgical History Surgical History History of colon resection 1990 History of hemorrhoidectomy 2003 History of inguinal hernia repair Family History Family History Sibling Patient's brother is in good health Father Heart failure Acute myocardial infarction, Onset Age: 42 Mother COPD (chronic obstructive pulmonary disease) Emphysema lung Grandpar
[2021-05-26 04:30] VITALS: BP 146/95; PULSE 90; RESP 16; TEMP 36.4; O2SAT 98
[2021-05-26] MEDS: SODIUM CHLORIDE 0.9% IV 1,000 ML 999 ML IV CONT (05:03)
[2021-05-26 05:10] LABS: Add Urine Microscopic? YES; Appearance Urine Cloudy (Clear); Bilirubin Urine Negative (Negative); Blood Urine 3+ (Negative); Calcium Oxalate Crystals Urine Present /hpf; Color Urine Yellow (Yellow); Glucose Urine UA Negative (Negative); Ketones Urine Negative (Negative); Leukocyte Esterase Ur Negative LEU/UL (Negative); Mucus Urine Rare /lpf; Nitrate Urine Negative (Negative); Protein Urine 1+ mg/dL (Negative); RBC Urine >75 /hpf (0-2); Squamous Epithelial Cell Urine Rare /hpf (Few); Urobilinogen Urine Negative mg/dL (<2.0)
[2021-05-26 05:15] LABS: Basophils Percent Auto 0.3 % (0.2-1.2); Eosinophils Percent Auto 0.1 % (0-4.4); Hematocrit 39.2 % (42.0-52.0); Hemoglobin 13.3 g/dL (14.0-18.0); Immature Granulocyte Absolute 0.03 K/mm3 (0.00-0.031); Immature Granulocyte Percent A 0.3 % (0-0.5); Lymphocytes Absolute Auto 1.03 K/mm3 (0.9-3.2); Lymphocytes Percent Auto 10.8 % (18.3-44.2); Mean Corpuscular HGB Conc 33.9 g/dl (32-36); Mean Corpuscular Hemoglobin 30.2 pg (26-34); Mean Corpuscular Volume 88.9 fl (80-100); Mean Platelet Volume 9.4 fl (7.4-10.4); Monocytes Absolute Auto 0.6 K/mm3 (0.1-0.6); Monocytes Percent Auto 5.9 % (2.6-8.5); Neutrophils Absolute Auto 7.9 K/mm3 (1.3-6.7); Neutrophils Percent Auto 82.6 % (45.5-73.1); Platelet Count Result 216 k/mm3 (150-375); Red Blood Count 4.41 M/mm3 (4.6-6.20); Red Cell Distribution Width 13.1 % (11.5-14.5); White Blood Count 9.6 K/mm3 (4.5-10.0)
[2021-05-26 05:27] LABS: Lipase 49 U/L (23-300)
[2021-05-26 05:35] VITALS: BP 153/94; PULSE 84; RESP 12; O2SAT 100
[2021-05-26 05:37] LABS: Alanine Aminotransferase 44 U/L (4-50); Alkaline Phosphatase 59 U/L (38-126); Anion Gap 10 mmol/L (8-16); Aspartate Amino Transferase 30 U/L (17-59); Bilirubin,Total 0.8 mg/dL (0.2-1.3); Blood Urea Nitrogen 13 mg/dL (9-20); Calcium 8.9 mg/dL (8.4-10.2); Carbon Dioxide 24 mmol/L (22-30); Chloride 106 mmol/L (98-107); Estimated CRCL calculation 74 ml/min; Estimated Glomerular Filt Rate 59; Glucose 119 mg/dL (65-110); Potassium 3.4 mmol/L (3.4-5.0); Sodium 140 mmol/L (137-145)
[2021-05-26] MEDS: TAMSULOSIN HCL 0.4 MG CAPSULE PO (05:44)
[2021-05-26] MEDS: KETOROLAC 30 MG/ML VIAL (*BKC) IV PUSH (05:45)
[2021-05-26] MEDS: PROMETHAZINE HCL 25 MG/ML AMPUL 12.5 MG IV PUSH (05:47)
[2021-05-26 06:32] VITALS: BP 142/92; PULSE 86; RESP 14; O2SAT 98
== END 2021-05-26 06:32 | disposition home or self-care (01) ==
PROVIDERS: Emergency Provider Emergency Medicine; PCP Internal Medicine
DX: N13.2 Hydronephrosis with renal and ureteral calculous obstruction (principal); K50.90 Crohn's disease, unspecified, without complications; I10 Essential (primary) hypertension; Z87.442 Personal history of urinary calculi; F41.8 Other specified anxiety disorders; Z90.49 Acquired absence of other specified parts of digestive tract
CPT/HCPCS: 36415; 74176; 80053; 81001; 83690; 85025; 87086; 96361; 96374; 96375; 99284; A9270; J1885; J2550; J7030

== ENCOUNTER 2021-05-29 09:52 | Outpatient (CLI) | payer OTHER, SELFPAY ==
--- NOTE | ~2021-05-29 | XR_ITS ---
EXAMINATION: XR abdomen/kub 1V DATE: 05/29/2021 10:03 INDICATION: Right ureteral stone. TECHNIQUE: A supine view of the abdomen on 2 radiographs was obtained. COMPARISON: CT abdomen and pelvis 05/26/2021 FINDINGS: There are no dilated loops of bowel. There are two 5 mm stones in right kidney. There is a 6 mm stone in distal right ureter. IMPRESSION: 1. Stones in the right kidney and distal right ureter. Reviewed, dictated and finalized at [facility]. CAL STAFF MANAGER
== END 2021-05-29 09:53 | disposition home or self-care (01) ==
PROVIDERS: PCP Internal Medicine; Visit Provider Urology
DX: N20.2 Calculus of kidney with calculus of ureter (principal)
CPT/HCPCS: 74018

== ENCOUNTER 2021-06-08 10:59 | Outpatient (CLI) | payer OTHER, SELFPAY ==
--- NOTE | ~2021-06-08 | US_ITS ---
EXAMINATION: US retroperitoneal comp EXAM DATE: 06/08/2021 12:01 INDICATION: Ureteral stone. TECHNIQUE: Multiple grayscale and Doppler images of the kidneys were obtained (by a technologist who performed the scan) and subsequently reviewed. Correlation is made to CT abdomen pelvis 05/26/2021. FINDINGS: Right kidney: There is normal contour and echogenicity. It measures 10.4 x 4.8 x 4.8 centimeters. In ferior calyceal 7 mm stone identified. Mild hydronephrosis, less than the moderate hydronephrosis wa s present on CT scan 2 weeks ago. Left kidney: There is normal contour and echogenicity. It measures 11.9 x 4.2 x 5.2 centimeters. Th ere are no focal renal lesions identified. There is no hydronephrosis. Bladder unremarkable. Bilateral ureteral jets were confirmed, indicating right ureter not completely obstructed from stone if still present. IMPRESSION: 1. Right nephrolithiasis. Mild right hydronephrosis. 2. Bilateral ureteral jets were confirmed. Reviewed, dictated and finalized at [facility]. NESS AGENT
== END 2021-06-08 11:00 | disposition home or self-care (01) ==
LOC: ANHIMG 11:01
PROVIDERS: PCP Internal Medicine; Visit Provider Urology
DX: N20.2 Calculus of kidney with calculus of ureter (principal)
CPT/HCPCS: 76770

== ENCOUNTER 2021-08-14 10:02 | Outpatient (CLI) | payer OTHER, SELFPAY ==
[2021-08-14 10:21] LABS: Basophils Percent Auto 0.5 % (0.2-1.2); Eosinophils Absolute Auto 0.2 K/mm3 (0-0.3); Eosinophils Percent Auto 2.7 % (0-4.4); Hematocrit 40.6 % (42.0-52.0); Hemoglobin 13.8 g/dL (14.0-18.0); Immature Granulocyte Absolute 0.01 K/mm3 (0.00-0.031); Immature Granulocyte Percent A 0.2 % (0-0.5); Lymphocytes Absolute Auto 1.44 K/mm3 (0.9-3.2); Lymphocytes Percent Auto 23.9 % (18.3-44.2); Mean Corpuscular Hemoglobin 30.3 pg (26-34); Mean Corpuscular Volume 89.2 fl (80-100); Mean Platelet Volume 9.2 fl (7.4-10.4); Monocytes Absolute Auto 0.4 K/mm3 (0.1-0.6); Monocytes Percent Auto 7.1 % (2.6-8.5); Neutrophils Percent Auto 65.6 % (45.5-73.1); Platelet Count Result 243 k/mm3 (150-375); Red Blood Count 4.55 M/mm3 (4.6-6.20)
[2021-08-14 10:35] LABS: Alanine Aminotransferase 48 U/L (4-50); Albumin Level 4.2 g/dL (3.5-5.1); Alkaline Phosphatase 55 U/L (38-126); Anion Gap 7 mmol/L (8-16); Aspartate Amino Transferase 33 U/L (17-59); Bilirubin,Total 0.9 mg/dL (0.2-1.3); Blood Urea Nitrogen 16 mg/dL (9-20); Calcium 8.4 mg/dL (8.4-10.2); Carbon Dioxide 27 mmol/L (22-30); Chloride 106 mmol/L (98-107); Estimated Glomerular Filt Rate 55; Glucose 96 mg/dL (65-110); Potassium 3.6 mmol/L (3.4-5.0); Sodium 140 mmol/L (137-145)
== END 2021-08-14 10:03 | disposition home or self-care (01) ==
LOC: ANHLAB 10:04
PROVIDERS: PCP Internal Medicine; Visit Provider Internal Medicine
DX: E53.8 Deficiency of other specified B group vitamins (principal); I10 Essential (primary) hypertension
CPT/HCPCS: 36415; 80053; 82607; 82746; 85025

== ENCOUNTER 2022-06-25 09:44 | Outpatient (CLI) | payer OTHER, SELFPAY ==
[2022-06-25 10:54] LABS: Basophils Absolute Auto 0.1 K/mm3 (0.0-0.1); Basophils Percent Auto 1.2 % (0.2-1.2); Eosinophils Absolute Auto 0.2 K/mm3 (0-0.3); Eosinophils Percent Auto 2.5 % (0-4.4); Hematocrit 42.1 % (42.0-52.0); Hemoglobin 14.3 g/dL (14.0-18.0); Immature Granulocyte Absolute 0.01 K/mm3 (0.00-0.031); Immature Granulocyte Percent A 0.2 % (0-0.5); Lymphocytes Absolute Auto 1.43 K/mm3 (0.9-3.2); Lymphocytes Percent Auto 22.1 % (18.3-44.2); Mean Corpuscular Hemoglobin 30.6 pg (26-34); Mean Platelet Volume 9.5 fl (7.4-10.4); Monocytes Absolute Auto 0.4 K/mm3 (0.1-0.6); Monocytes Percent Auto 6.5 % (2.6-8.5); Neutrophils Absolute Auto 4.4 K/mm3 (1.3-6.7); Neutrophils Percent Auto 67.5 % (45.5-73.1); Platelet Count Result 241 k/mm3 (150-375); Red Blood Count 4.68 M/mm3 (4.6-6.20); Red Cell Distribution Width 13.1 % (11.5-14.5); White Blood Count 6.5 K/mm3 (4.5-10.0)
[2022-06-25 11:06] LABS: Alanine Aminotransferase 66 U/L (6-50); Albumin Level 4.3 g/dL (3.5-5.1); Alkaline Phosphatase 63 U/L (38-126); Anion Gap 7 mmol/L (8-16); Aspartate Amino Transferase 39 U/L (17-59); Bilirubin,Total 0.9 mg/dL (0.2-1.3); Blood Urea Nitrogen 14 mg/dL (9-20); Calcium 8.6 mg/dL (8.4-10.2); Carbon Dioxide 26 mmol/L (22-30); Chloride 109 mmol/L (98-107); Estimated Glomerular Filt Rate > 60; Glucose 93 mg/dL (65-110); Potassium 3.1 mmol/L (3.4-5.0); Sodium 142 mmol/L (137-145)
[2022-06-25 11:17] LABS: Iron 68 ug/dL (49-181)
[2022-06-25 11:26] LABS: Percent Iron Saturation 17 % (20-50)
[2022-06-25 11:35] LABS: Thyroid Stimulating Hormone 0.731 uIU/mL (0.465-4.680)
[2022-06-25 12:11] LABS: Folic Acid > 20.0 ng/mL (2.76->20)
== END 2022-06-25 09:45 | disposition home or self-care (01) ==
LOC: ANHLAB 09:45
PROVIDERS: PCP Internal Medicine; Visit Provider Internal Medicine
DX: D64.9 Anemia, unspecified (principal); R53.83 Other fatigue
CPT/HCPCS: 36415; 80053; 82607; 82746; 83540; 83550; 84443; 85025

== ENCOUNTER 2022-12-17 07:14 | Outpatient (CLI) | payer OTHER, SELFPAY ==
[2022-12-17 07:59] LABS: Alanine Aminotransferase 36 U/L (6-50); Albumin Level 4.2 g/dL (3.5-5.1); Alkaline Phosphatase 67 U/L (38-126); Anion Gap 9 mmol/L (8-16); Aspartate Amino Transferase 28 U/L (17-59); Bilirubin,Total 0.6 mg/dL (0.2-1.3); Blood Urea Nitrogen 14 mg/dL (9-20); Calcium 8.8 mg/dL (8.4-10.2); Carbon Dioxide 23 mmol/L (22-30); Chloride 107 mmol/L (98-107); Estimated Glomerular Filt Rate 59; Glucose 101 mg/dL (65-110); Potassium 3.4 mmol/L (3.4-5.0); Sodium 139 mmol/L (137-145)
== END 2022-12-17 07:15 | disposition home or self-care (01) ==
PROVIDERS: PCP Internal Medicine; Visit Provider Internal Medicine
DX: E87.6 Hypokalemia (principal); K50.813 Crohn's disease of both small and large intestine with fistula; R79.89 Other specified abnormal findings of blood chemistry
CPT/HCPCS: 36415; 80053

== ENCOUNTER 2024-02-12 20:47 | Emergency (ER) | payer OTHER, SELFPAY ==
--- NOTE | ~2024-02-12 | CT_ITS ---
EXAMINATION: CT abdomen pelvis wo con DATE: 02/12/2024 22:34 INDICATION: Right flank pain TECHNIQUE: Computed tomography (CT) of the abdomen and pelvis was performed without intravenous contr ast. Automated exposure control and iterative reconstruction technique were employed. The dose-length product was 668.22 mGy-cm. COMPARISON: 05/26/2021 FINDINGS: Lung bases are clear. Heart size is normal. No pericardial or pleural effusion. And 5 mm cyst in the caudal right hepatic lobe. Gallbladder, spleen, pancreas and bilateral adrenal glands are normal. 4 m m obstructing stone in the mid right ureter. There is moderate right hydroureteronephrosis as well as some periureteral stranding. There is additional 1-2 mm stone at the upper pole of the right kidney and 2 mm and 3 mm nonobstructing stones in the left kidney. Appendix and ileocecal valve are not visu alized with suggestion of prior partial right hemicolectomy with rectal ileocolic anastomosis. No bow el obstruction. The latter is normal. Prostatomegaly measuring 4.8 x 4.0 cm. Small fat-containing rig ht inguinal hernia. There are a few chronically enlarged left perirectal lymph nodes, the largest vlad suring 12 x 11 mm increased from 7 x 7 mm on study dated 04/02/2017 as well as enlarged left external iliac chain lymph node measuring 1.7 x 1.3 cm increased from 12 x 9 mm also in 2017. Mild lumbar and moderate lower thoracic spondylosis. These have been prominent dating back to IMPRESSION: 1. Bilateral nephrolithiasis with obstructing 4 mm mid right ureteral stone with moderate right hydro ureteronephrosis. 2. Chronic left perirectal and internal iliac chain lymphadenopathy which has demonstrated slow progr ession dating back to 2017 which could be either reactive or related to very slowly progressive metas tatic disease. 3. Prostatomegaly. 4. Small fat-containing right inguinal hernia. Reviewed, dictated and finalized at [facility]. IMPRESSION: 1. Bilateral nephrolithiasis with obstructing 4 mm mid right ureteral stone wit h moderate right hydroureteronephrosis. 2. Chronic left perirectal and internal iliac chain lymphadenopathy which has d emonstrated slow progression dating back to 2017 which could be either reactive or related to very slowly progressive metastatic disease. 3. Prostatomegaly. 4. Small fat-containing right inguinal hernia.
[2024-02-12 20:50] VITALS: BP 152/94; PULSE 57; RESP 14; TEMP 36.6; O2SAT 99
[2024-02-12 20:57] VITALS: BP 168/102; PULSE 61; RESP 16; TEMP 36.6; O2SAT 96
[2024-02-12] MEDS: SODIUM CHLORIDE 0.9% IV 1,000 ML 999 ML IV CONT (20:59)
[2024-02-12] MEDS: KETOROLAC 15 MG/ML VIAL (*BKC) IV PUSH ×2 (21:00→23:45)
--- NOTE | 2024-02-12 21:03 | ED.GENADULT ---
HPI - General Adult General Chief complaint: Urogenital-Male Stated complaint: R flank pain Time Seen by Provider: 02/12/24 20:54 History of Present Illness HPI narrative: Patient is a 48-year-old male who presents to the emergency department this evening complaining of right sided flank pain which started around 1:00 p.m. this afternoon. Patient states that he does have a history of kidney stones which she usually present on the right side and states that throughout the day he was trying to fight it and did not want to come in, however, the pain persisted despite him taking Zofran, Flomax and Aleve at home. Patient states that his last kidney stone was approximately 1-2 years ago and at that time he did have a stent placed. Patient admits that the stent has been removed. Admits to nausea but denies any vomiting episodes. Denies any fevers or chills at home and is denying any chest pain or shortness of breath. No additional symptoms or concerns at this time. Related Data Home Medications Medication Instructions Recorded Confirmed buspirone 5 mg tablet 15 mg PO DAILY 01/08/20 05/10/22 multivitamin,mv-zcgy-vzmqvhey 1 tablet PO DAILY 01/08/20 05/10/22 (Complete Multivitamin tablet) infliximab-dyyb 100 mg intravenous 100 mg IV USEASDIRECTD 07/22/20 05/10/22 solution (Inflectra) sertraline 100 mg tablet 100 mg PO DAILY 04/06/23 Allergies Allergy/AdvReac Type Severity Reaction Status Date / Time No Known Allergies Allergy Verified 10/25/23 07:51 Review of Systems Review of Systems: All systems are reviewed and are negative unless stated otherwise in the HPI. [facility] Past Medical History Medical History Crohn's disease, unspecified, without complications Depression with anxiety History of kidney stones with multiple lithotripsies Hypertension Surgical History Surgical History History of colon resection 1990 History of hemorrhoidectomy 2003 History of inguinal hernia repair Family History Family History Sibling Patient's brother is in good health Father Heart failure Acute myocardial infarction, Onset Age: 42 Mother COPD (chronic obstructive pulmonary disease) Emphysema lung Grandparent Stomach cancer Other Stomach cancer Social History Social History Social History: Patient lives at home with his . Lifelong nonsmoker. Rarely drinks alcohol. Denies drug use. Full code. He works in [employer] at [employer]. He nominates his to be the individual who would make medical decisions for him if he is unable. Smoking status: Never smoker Second hand tobacco smoke exposure: No Alcohol intake: never Lack of Transportation: No Lack of Food: Never True Current Housing: I Have Housing Concerned About Future Housing: No Difficulty Paying Gas/Electric Bills: No Difficulty Paying for Meds: No Currently Unemployed: No Education: Bachelor's Degree Difficulty w/ Childcare or Family Care: No Spiritual care concerns: No Exam Narrative: General: Alert, awake, afebrile, in no acute distress. HEENT: PERRL, no rhinorrhea, no post nasal drip, oropharynx clear. Cardiovascular: Regular rate and rhythm, no murmurs, rubs or gallops, no peripheral edema. Respiratory: Clear to auscultation bilaterally, no tachypnea, no wheezing, no rhonchi, no rubs, no respiratory distress. Abdomen: Soft, nontender, nondistended, no rebound, no guarding, no peritoneal signs. Musculoskeletal: No joint swelling or deformity, normal muscle tone. Skin: No rashes or petechia, no signs of infection. Neurological: Alert and oriented to person, place, and time. Follows all commands. No focal deficits, speech is clear and fluent. Course Vital Signs Vital signs: Vital
[2024-02-12 21:08] LABS: Basophils Absolute Auto 0.1 K/mm3 (0.0-0.1); Basophils Percent Auto 0.8 % (0.2-1.2); Eosinophils Absolute Auto 0.2 K/mm3 (0-0.3); Hematocrit 38.7 % (42.0-52.0); Hemoglobin 13.4 g/dL (14.0-18.0); Immature Granulocyte Absolute 0.01 K/mm3 (0.00-0.031); Immature Granulocyte Percent A 0.1 % (0-0.5); Lymphocytes Absolute Auto 1.36 K/mm3 (0.9-3.2); Lymphocytes Percent Auto 18.1 % (18.3-44.2); Mean Corpuscular HGB Conc 34.6 g/dl (32-36); Mean Corpuscular Hemoglobin 31.4 pg (26-34); Mean Corpuscular Volume 90.6 fl (80-100); Mean Platelet Volume 9.4 fl (7.4-10.4); Monocytes Absolute Auto 0.6 K/mm3 (0.1-0.6); Monocytes Percent Auto 7.6 % (2.6-8.5); Neutrophils Absolute Auto 5.4 K/mm3 (1.3-6.7); Neutrophils Percent Auto 71.4 % (45.5-73.1); Platelet Count Result 264 k/mm3 (150-375); Red Blood Count 4.27 M/mm3 (4.6-6.20); Red Cell Distribution Width 13.2 % (11.5-14.5); White Blood Count 7.5 K/mm3 (4.5-10.0)
[2024-02-12 21:20] LABS: Alanine Aminotransferase 21 U/L (6-50); Albumin Level 4.1 g/dL (3.5-5.1); Alkaline Phosphatase 66 U/L (38-126); Anion Gap 11 mmol/L (4-12); Aspartate Amino Transferase 25 U/L (17-59); Bilirubin,Total 0.5 mg/dL (0.2-1.3); Blood Urea Nitrogen 19 mg/dL (9-20); Calcium 9.1 mg/dL (8.4-10.2); Carbon Dioxide 21 mmol/L (22-30); Chloride 105 mmol/L (98-107); Estimated CRCL calculation 62 ml/min; Estimated Glomerular Filt Rate 50; Glucose 141 mg/dL (65-110); Potassium 3.1 mmol/L (3.4-5.0); Sodium 137 mmol/L (137-145)
[2024-02-12] MEDS: POTASSIUM CHLORIDE 20 MEQ PACKET (FOR LIQUID) 40 MEQ PO (21:35)
[2024-02-12 23:00] LABS: Add Urine Microscopic? YES; Appearance Urine Cloudy (Clear); Bacteria Urine None Seen /hpf; Bilirubin Urine Negative (Negative); Blood Urine 3+ (Negative); Color Urine Dark Yellow (Yellow); Glucose Urine UA Negative (Negative); Ketones Urine Trace mg/dL (Negative); Leukocyte Esterase Ur Trace LEU/UL (Negative); Nitrate Urine Negative (Negative); Protein Urine 2+ mg/dL (Negative); RBC Urine >100 /hpf (0-2); Specific Grav Ur 1.024 (1.001-1.035); Squamous Epithelial Cell Urine None Seen /hpf (Few); WBC Urine 0-5 /hpf (0-3); pH Urine 5.5 (5.0-9.0)
[2024-02-12 23:53] VITALS: BP 148/86; PULSE 62; RESP 15; O2SAT 100
== END 2024-02-12 23:53 | disposition home or self-care (01) ==
PROVIDERS: Emergency Provider Emergency Medicine
DX: N13.2 Hydronephrosis with renal and ureteral calculous obstruction (principal); E87.6 Hypokalemia; K50.90 Crohn's disease, unspecified, without complications; F41.8 Other specified anxiety disorders; I10 Essential (primary) hypertension
CPT/HCPCS: 36415; 74176; 80053; 81001; 85025; 96361; 96374; 96375; 99284; A9270; J1885; J7030

== ENCOUNTER 2024-09-21 12:34 | Outpatient (CLI) | payer OTHER, SELFPAY ==
--- NOTE | ~2024-09-21 | CT_ITS ---
EXAMINATION: CT abdomen pelvis wo con DATE: 09/21/2024 12:50 INDICATION: Renal stone TECHNIQUE: Computed tomography (CT) of the abdomen and pelvis was performed without intravenous contr ast. The dose-length product was 212.36 mGy-cm. Automated exposure control and iterative reconstructi on technique were employed. COMPARISON: CT dated 02/12/2024 FINDINGS: Lung bases are unremarkable. Heart size normal. No significant pleural or pericardial effus ion. The liver, spleen, pancreas, adrenal glands and left kidney are unremarkable. There is a punctat e 1 mm nonobstructing right renal stone. Bladder is collapsed. No ureteral stones or hydronephrosis. Gallbladder is present. There is a fat-containing right inguinal hernia. Nonobstructive bowel gas pat tern. There is a circular radiopaque device adjacent to the rectum, of uncertain significance. There are prostate calcifications. No significant vascular abnormality. There is mild mesenteric lymphadeno hannah, likely reactive. Mild levoscoliosis. IMPRESSION: 1. Nonobstructing right nephrolithiasis. No hydronephrosis. Reviewed, dictated and finalized at location A.
--- OUTSIDE RECORDS SUMMARY | 2024-09-21 16:33 | XMS_ITS | Encounter Summary ---
Author Organization [facility] Address [address] [place] [address] Phone Care Team Providers Care Synthetic Chemist Name Role Phone Brodie Fierro MD Primary Care Provider [phone] Tanmay Miller MD PhD Unavailable [phone] Encounter Details Date Type Department Care Team (Late st Contact Info) Description 08/16/2024 Results Follow-Up [facility] Gastroenterology [address] [facility] [address] [place] [address] [place] [address] Tanmay Miller MD PhD [address] [place] [address] Social History Tobacco Use Types Packs/Day Years Used Date Smoking Tobacco: Never Smokeless Tobacco: Never Alcohol Use Standard Drinks/Week Comments Yes 0 (1 standard drink = 0.6 oz pur e alcohol) Occasionally AUDIT-C Answer Date Recorded Q1: How often do you have a drink containing alc ohol? Monthly or less 05/09/2024 Q2: How many drinks containi ng alcohol do you have on a typical day when you are drinking? 1 or 2 05/09/2024 Q3: How often do you have si x or more drinks on one occasion? Never 05/09/2024 Personal Safety Answer Date Recorded Have you ever been in or are you currently in a harmful physical or emotional relationship or is someone making you feel afraid or unsafe? Denies 02/26/2024 Sex and Gender Information Value Date Recorded Sex Assigned at Not on file Legal Sex Male 10:18 AM CLINICAL LABORATORY MANAGER Gender Identity Not on file Sexual Orientation Straight 03/26/2020 2: 29 PM CLINICAL LABORATORY MANAGER documented as of this encounter Plan of Treatment Not on file documented as of this encounter Visit Diagnoses Not on filedocumented in this encounter Care Teams Synthetic Chemist Relationship Specialty Start Date End Date Brodie Fierro MD [address] [place] [address] PCP - General 07/07/16 Tanmay Miller MD PhD [address] [place] [address] Referring Physician Gastroenterology 05/06/21 documented as of this encounter
--- OUTSIDE RECORDS SUMMARY | 2024-09-21 16:33 | XMS_ITS | Encounter Summary ---
Author Organization [facility] Address [address] [place] [address] Phone Care Team Providers Care Gel Coat Sprayer Name Role Phone Brodie Fierro MD Primary Care Provider [phone] Belia Licona MD Unavailable Tanmay Miller MD PhD Unavailable [phone] Encounter Details Date Type Department Care Team (Late st Contact Info) Description 05/09/2018 Orders Only [facility] Scanning, Provider Social History Tobacco Use Types Packs/Day Years Used Date Smoking Tobacco: Never Smokeless Tobacco: Never Alcohol Use Standard Drinks/Week Comments Yes 0 (1 standard drink = 0.6 oz pur e alcohol) Occasionally Sex and Gender Information Value Date Recorded Sex Assigned at Not on file Legal Sex Male 10:18 AM RECEPTIONIST SECRETARY Gender Identity Not on file Sexual Orientation Straight 03/26/2020 2: 29 PM RECEPTIONIST SECRETARY documented as of this encounter Plan of Treatment Not on file documented as of this encounter Procedures Procedure Name Priority Date/Time Associated Diagnosis Comments SCAN - LABS 05/09/2018 documented in this encounter Results * SCAN - LABS (05/09/2018) us Provider Scanning Final Result documented in this encounter Visit Diagnoses Not on filedocumented in this encounter Care Teams Gel Coat Sprayer Relationship Specialty Start Date End Date Brodie Fierro MD [address] [place] [address] PCP - General 07/07/16 Belia Licona MD [address] [place], [place] [id number] Resident Psychiatry 06/05/20 11/16/20 Tanmay Miller MD PhD [address] [place] [address] Referring Physician Gastroenterology 05/06/21 documented as of this encounter
--- OUTSIDE RECORDS SUMMARY | 2024-09-21 16:33 | XMS_ITS | Referral Summary ---
Author Organization [facility] Address [address] [place] [address] Care Team Providers Care Director Mobile Name Role Phone Brodie Fierro MD Primary Care Provider [phone] Tanmay Miller MD PhD Unavailable [phone] Encounters Date Type Department Care Team Description 09/12/2024 1:00 PM CDT Infusion [facility] Infusion Therapy [facility] 5th [place] [address] [place] [address] Crohn's disease of both small and large intestine with fistula (HCC) (Primary Dx) 08/22/2024 Orders Only [facility] Gastroenterology [facility] 12th [place] [address] [place] [address] Candie Brooks RN 08/19/2024 Orders Only [facility] Department of Psychiatry [address] [facility] [address] [place] [address] Mary Anne Gonzalez PA 08/16/2024 Results Follow-Up [facility] Gastroenterology [address] [facility] 12th [place] [address] [place] [address] Tanmay Miller MD PhD 08/16/2024 Results Follow-Up [facility] Gastroenterology [address] [facility] 12th [place] [address] [place] [address] Tanmay Miller MD PhD 08/15/2024 1:23 PM CDT - 08/15/2024 11:59 PM CDT Hospital Encounter [facility] [address] [place] [address] Crohn's disease of both small and large intestine with fistula (HCC) Discharge Disposition: Discharge to home or self care 08/15/2024 2:15 PM CDT Lab [facility] Endocrinology Metabolism and Lipid [address] [place] [address] [place] [address] Crohn's disease of both small and large intestine with fistula (HCC) [K50.813] (Primary Dx) 08/15/2024 1:30 PM CDT Infusion [facility] Infusion Therapy [facility] [address] [place] [address] Crohn's disease of both small and large intestine with fistula (HCC) (Primary Dx) 08/14/2024 11:00 AM CDT Office Visit [facility] Department of Psychiatry [address] [facility] [address] [place] [address] Mary Anne Gonzalez PA ALAN (generalized anxiety disorder) (Primary Dx); MDD (major depressive disorder), recurrent, in partial remission 07/31/2024 Orders Only [facility] Gastroenterology [address] [place] [address] [place] [address] Candie Brooks RN 07/26/2024 Results Follow-Up [facility] Gastroenterology [address] [place] [address] Tanmay Miller MD PhD 07/25/2024 Documentation [facility] Gastroenterology [address] [place] [address] [place] [address] Candie Brooks, SRAVANI C. diff + 07/18/2024 1:30 PM SUPERVISOR WET END Infusion [facility] Infusion Therapy [address] [place] [address] [place] [address] Crohn's disease of both small and large intestine with fistula (HCC) (Primary Dx) 07/17/2024 Telephone [facility] Psychiatry [address] [place] [address] Nadya Norton 07/09/2024 Documentation [facility] Gastroenterology [address] [facility] 12th [place] [address] [place] [phone] Candie Brooks RN Symptoms/recommenda tions 07/09/2024 Orders Only [facility] Gastroenterology [facility] 12th [place] [address] [place] [phone] Candie Brooks RN from Last 3 Months Allergies No known active allergies Medications INFLIXIMAB (REMICADE IV)Indications:l ast 05/18/2021. For crohns Infuse into a venous catheter One infusion every 4 weeks Active gbydshoq-kist-AB -calcium-mins 27 mg iron-400 mcg tabletIndication s:Vitamin Deficiency Prevention Take by mouth every morning Active sildenafiL (VIAGRA) 50 mg tabletIndication s:Erectile Dysfunction Take 1 tablet (50 mg total) by mouth as needed for erectile dysfunction 30 tablet 4 Active sodium, potassium & mag sulfates (SUPREP BOWEL KIT) 17.5-3.13-1.6 gram recon solnIndications: Bowel Evacuation,PLEAS E FOLLOW INSTRUCTIONS FROM GI PHYSICIAN'S OFFICE Begin drinking the first dose around 5-6PM the day before your procedure. Then drink the second dose of SuPREP 4 hours before you leave your house (additional directions comes with kit) 354 mL 4 Active budesonide EC (ENTOCORT EC) 3 mg 24 hr capsuleIndicatio ns:Crohn's Disease Take 3 capsules (9 mg total) by mouth every morning Start after stool studies are submitted 90 capsule 1 5 07/09/19 26 Active lisinopriL (PRINIVIL,ZESTRI L) 20 mg tabletIndication s:hypertension Take 1 tablet (20 mg total) by mouth every morning 90 tablet [address] (CYMBALTA) 30 mg capsule Take 1 capsule (30 mg total) by mouth daily 10 capsule [address] (CYMBALTA) 60 mg capsule Take 1 capsule (60 mg total) by mouth daily In addition to 30 mg for a total of 90 mg 90 capsule 1 Active busPIRone (BUSPAR) 15 mg tablet Take 1.5 tablets (22.5 mg total) by mouth daily 135 tablet 1 Active Active Problems Problem Noted Date Diagnosed Date Other dietary vitamin B12 deficiency anemia 04/22 Assessment & Plan (05/10/2023 5:45 PM SUPERVISOR WET END): The patient's B12 was adequate on his current level of supplementation when last checked. We would like him to continue this for the foreseeable future Major depressive disorder, recurrent episode, mo derate 03/10/2023 Anal polyp 06/03/2021 Overview (06/03/2021): Added automatically from request for surgery [id number] Assessment & Plan (05/10/2023 5:44 PM SUPERVISOR WET END): Happily the patient is not having any trouble since the excision in 2021. If these return, we will try to get him established with a new Colorectal surgeon. High risk medications (not anticoagulants) long- term use 10/16/2020 Assessment & Plan (05/09/2024 5:38 PM SUPERVISOR WET END): He should continue close follow-up with his care team and stay up-to-date with his vaccinations. He plans to get Shingrix once he turns 49 but was offered the option of having it sooner with his infusion if desired as he is eligible before the age of 49 based on his immunosuppression Assessment & Plan (05/10/2023 5:44 PM SUPERVISOR WET END): Based on the patient's immunosuppression, he is eligible for Shingrix and Prevnar 20 Recurrent kidney stones 2019 Assessment & Plan (05/09/2024 5:37 PM SUPERVISOR WET END): Unfortunately patient is not a huge fan of water and is at increased risk for kidney stones because of his Crohn's disease amongst other reasons. We would recommend that he try to incorporate more fluids and may benefit from rehydration formulas and find them more palpable. These may also be better absorbed given his previous bowel surgery and baseline chronic diarrhea. Adding citric acid or citrus fruit to his beverages may also help reduce the risk of calcium carbonate stones. Assessment & Plan (2019 3:09 PM CDT): Unfortunately patients with Crohn's disease are at higher risk for calcium oxalate kidney stones. The patient is advised to drink more water and he can discuss with his urologist whether he would benefit from calcium supplementation or other diet modifications Opioid use disorder, mild, abuse 10/09/2019 Assessment & Plan (05/26/2020 10:36 AM SUPERVISOR WET END): Patient with hx of mild OUD, uses opioids when he has pain from kidney stones and this triggers cravings for him. Sometimes he uses these prescription opioids to feel good but is now holding onto his prescriptions and locking them up. He denies getting opioids from other sources besides his rarely prescribed opioids. Assessment & Plan (03/27/2020 2:22 PM SUPERVISOR WET END): Patient with hx of mild OUD, uses opioids when he has pain from kidney stones and this triggers cravings for him. Sometimes he uses these prescription opioids to feel good but is now holding onto his prescriptions and locking them up. He denies getting opioids from other sources besides his rarely prescribed opioids. Assessment & Plan (01/31/2020 7:36 AM CDT): Patient with hx of mild OUD, uses opioids when he has pain from kidney stones and this triggers cravings for him. Sometimes he uses these prescription opioids to feel good but is now holding onto his prescriptions and locking them up. He denies getting opioids from other sources besides his rarely prescribed opioids. Will continue to monitor closely and let his PCP know. Assessment & Plan (11/19/2019 6:43 AM CDT): Patient with hx of mild OUD, uses opioids when he has pain from kidney stones and this triggers cravings for him. Sometimes he uses these prescription opioids to feel good but is now holding onto his prescriptions and locking them up. He denies getting opioids from other sources besides his rarely prescribed opioids. Will continue to monitor closely and let his PCP know. Assessment & Plan (10/09/2019 7:35 AM CDT): Patient with hx of mild OUD, uses opioids when he has pain from kidney stones and this triggers cravings for him. Sometimes he uses these prescription opioids to feel good but is now holding onto his prescriptions and locking them up. He denies getting opioids from other sources besides his rarely prescribed opioids. Will continue to monitor closely and let his PCP know. ALAN (generalized anxiety disorder) 08/08/2018 Assessment & Plan (06/12/2022 7:47 AM SUPERVISOR WET END): Patient meets criteria for ALAN, continue Cymbalta, continue Buspar. Assessment & Plan (12/10/2021 4:19 PM CDT): Patient meets criteria for ALAN, continue Cymbalta, continue Buspar. Assessment & Plan (05/13/2021 1:29 PM SUPERVISOR WET END): Patient meets criteria for ALAN, continue Cymbalta, continue Buspar. Assessment & Plan (02/03/2021 4:53 PM CDT): Patient meets criteria for ALAN, continue Cymbalta, continue Buspar. Assessment & Plan (05/26/2020 10:36 AM SUPERVISOR WET END): Patient meets criteria for ALAN, continue Cymbalta, continue Buspar. Start therapy. Assessment & Plan (03/27/2020 2:21 PM SUPERVISOR WET END): Patient meets criteria for ALAN, continue Cymbalta, continue Buspar. Start therapy. Assessment & Plan (01/31/2020 7:35 AM CDT): Patient meets criteria for ALAN, continue Cymbalta, continue Buspar. Assessment & Plan (11/19/2019 6:43 AM CDT): Patient meets criteria for ALAN, continue Cymbalta, add Buspar. Assessment & Plan (10/09/2019 7:33 AM CDT): Patient meets criteria for ALAN, continue Cymbalta, consider adding Buspar. Assessment & Plan (04/02/2019 10:28 AM SUPERVISOR WET END): Patient meets criteria for ALAN, continue Cymbalta. Assessment & Plan (01/02/2019 5:40 PM CDT): Patient meets criteria for ALAN, continue Cymbalta. Assessment & Plan (10/10/2018 12:18 PM CDT): Patient meets criteria for ALAN, continue Cymbalta. Assessment & Plan (08/13/2018 7:42 AM CDT): Patient meets criteria for ALAN, recommended that he increase Cymbalta and start psychotherapy. Recurrent major depressive disorder, in partial remission 08/08/2018 Assessment & Plan (06/12/2022 7:47 AM SUPERVISOR WET END): 46 yo M with h/o MDD, ALAN, who now p/w stable mood and anxiety Sx despite psychosocial stressors. Please continue Cymbalta 90mg daily. Please continue Viagra as needed. Please continue Buspar 22.5mg daily Please let us know if your symptoms worsen. Please call 911 and go to an ER if you are in danger of hurting yourself or others. Please follow-up in 3 months Assessment & Plan (12/10/2021 4:19 PM CDT): 46 yo M with h/o MDD, ALAN, who now p/w stable mood. Please continue Cymbalta 90mg daily. Please continue Viagra as needed. Please continue Buspar 22.5mg daily Please let us know if your symptoms worsen. Please call 911 and go to an ER if you are in danger of hurting yourself or others. Please follow-up in 3 months Assessment & Plan (05/13/2021 1:28 PM SUPERVISOR WET END): 45 yo M with h/o MDD, ALAN, mild OUD, who now p/w stable mood. Please continue Cymbalta 90mg daily. Please continue Viagra as needed. Please continue Buspar 22.5mg daily Please let us know if your symptoms worsen. Please call 911 and go to an ER if you are in danger of hurting yourself or others. Please follow-up in 3 months Assessment & Plan (02/03/2021 4:52 PM CDT): 44 yo M with h/o MDD, ALAN, mild OUD, who now p/w stable mood. He is using large amounts of caffeine, wonders if this is affecting his frequency of kidney stones and anxiety Sx. He gets cravings to misuse opioids. He has abused prescription opioids on a few occasions. His is now holding onto opioids for him and locking them up. He reports that he must use opioids for severe pain associated with kidney stones and that NSAIDs are usually contraindicated for him. Please continue Cymbalta 90mg daily. Please continue Viagra as needed. Please continue Buspar 22.5mg daily Please try to slowly decrease your caffeine intake if you can Please let us know if your symptoms worsen. Please call 911 and go to an ER if you are in danger of hurting yourself or others. Please follow-up in 3-4 months Assessment & Plan (05/26/2020 10:36 AM SUPERVISOR WET END): 44 yo M with h/o MDD, ALAN, mild OUD, who now p/w somewhat worsening anxiety Sx in the setting of stress. He gets cravings to misuse opioids. He has abused prescription opioids on a few occasions. His is now holding onto opioids for him and locking them up. He reports that he must use opioids for severe pain associated with kidney stones and that NSAIDs are usually contraindicated for him. Please continue Cymbalta 90mg daily. Please continue Viagra as needed. Please continue Buspar 22.5mg daily Please start therapy. Please let us know if your symptoms worsen. Please call 911 and go to an ER if you are in danger of hurting yourself or others. Please follow-up in 6-8 weeks Assessment & Plan (03/27/2020 2:22 PM SUPERVISOR WET END): 44 yo M with h/o MDD, ALAN, mild OUD, who now p/w somewhat worsening anxiety Sx in the setting of stress. He used opioids once in the setting of kidney stones and then reports cravings to misuse them. He has abused prescription opioids on a few occasions. His is now holding onto opioids for him and locking them up. He reports that he must use opioids for severe pain associated with kidney stones and that NSAIDs are usually contraindicated for him. Please continue Cymbalta 90mg daily. Please continue Viagra as needed. Please try Buspar 22.5mg daily Please minimize your use of opioids Please start therapy Please let us know if your symptoms worsen. Please call 911 and go to an ER if you are in danger of hurting yourself or others. Please follow-up in 6-8 weeks Assessment & Plan (01/31/2020 7:36 AM CDT): 44 yo M with h/o MDD, ALAN, mild OUD, who now p/w somewhat worsening anxiety Sx in the setting of stress. He used opioids once in the setting of kidney stones and then reports cravings to misuse them. He has abused prescription opioids on a few occasions. His is now holding onto opioids for him and locking them up. He reports that he must use opioids for severe pain associated with kidney stones and that NSAIDs are usually contraindicated for him. Please continue Cymbalta 90mg daily. Please continue Viagra as needed. Please try Buspar 15mg daily Please minimize your use of opioids Please let us know if your symptoms worsen. Please call 911 and go to an ER if you are in danger of hurting yourself or others. Please follow-up in 6-8 weeks Assessment & Plan (11/19/2019 6:43 AM CDT): 43 yo M with h/o MDD, ALAN, mild OUD, who now p/w somewhat worsening anxiety Sx in the setting of stress. He used opioids once in the setting of kidney stones and then reports cravings to misuse them. His is holding onto opioids for him and locking them up. He reports that he must use opioids for severe pain associated with kidney stones and that NSAIDs are usually contraindicated for him. Please continue Cymbalta 90mg daily. Please continue Viagra as needed. Please try Buspar 7.5mg daily Please minimize your use of opioids Please let us know if your symptoms worsen. Please call 911 and go to an ER if you are in danger of hurting yourself or others. Please follow-up in 6-8 weeks Assessment & Plan (10/09/2019 7:33 AM CDT): 43 yo M with h/o MDD, ALAN, mild OUD, who now p/w somewhat worsening anxiety Sx in the setting of stress. He used opioids once in the setting of kidney stones and then reports cravings to misuse them. His is holding onto opioids for him and locking them up. He reports that he must use opioids for severe pain associated with kidney stones and that NSAIDs are usually contraindicated for him. Please continue Cymbalta 90mg daily. Please continue Viagra as needed. Cymbalta commonly has sexual side effects. Please consider adding Buspar to help with anxiety Please minimize your use of opioids Please let us know if your symptoms worsen. Please call 911 and go to an ER if you are in danger of hurting yourself or others. Please follow-up in 6-8 weeks Assessment & Plan (04/02/2019 10:57 AM SUPERVISOR WET END): 43 yo M with h/o MDD, ALAN, who now p/w improved mood and anxiety Sx. He notes a seasonal component to his mood Sx and wants to try lightbox therapy. He also is having sexual SEs with Cymbalta and agrees to try Viagra. We discussed r/b/a. Please continue Cymbalta 90mg daily. You can try Viagra as needed. Cymbalta commonly has sexual side effects. Please try lightbox therapy using a lightbox that is 10,000 lux or higher for 30-120 minutes every morning. Please try to get as much exercise and natural light as possible. Please let us know if your symptoms worsen. Please call 911 and go to an ER if you are in danger of hurting yourself or others. Please follow-up in ~4 months Assessment & Plan (01/02/2019 5:40 PM CDT): 42 yo M with h/o MDD, ALAN, who now p/w improved mood and anxiety Sx. Please continue Cymbalta 90mg daily. Please let us know if your symptoms worsen. Please call 911 and go to an ER if you are in danger of hurting yourself or others. Please follow-up in 12 weeks. Assessment & Plan (11/01/2018 9:12 AM CDT): 42 yo M with h/o MDD, ALAN, who now p/w improving mood and anxiety Sx. Please continue Cymbalta 90mg daily. Please let us know if your symptoms worsen. Please call 911 and go to an ER if you are in danger of hurting yourself or others. Please follow-up in 6-8 weeks. Assessment & Plan (08/13/2018 7:42 AM CDT): 42 yo M with h/o MDD, ALAN, who now p/w worsening mood and anxiety Sx. Please try Cymbalta 90mg daily. Please consider starting therapy. You could go to [facility] [place] for therapy, or [facility]. [facility] [place] takes therapy patients as well. You could also go on [facility] or [facility] to find a therapist who takes your insurance. Please get more sleep if possible. Please let us know if your symptoms worsen. Please call 911 and go to an ER if you are in danger of hurting yourself or others. Please follow-up in 6-8 weeks. Crohn's disease of both smal l and large intestine with fistula 07/20/2018 Overview (07/20/2018): Added automatically from request for surgery [id number] Assessment & Plan (05/09/2024 5:34 PM SUPERVISOR WET END): Happily the patient's disease activity appears to be controlled on monthly infliximab with appropriate trough. We would like to continue this for the foreseeable future Given his stricturing, we would like to keep his scope frequency at least every 2 years to maintain patency. We will try to get him scheduled for a MR enterography to verify remission. We will continue to monitor his labs with his infusion. Assessment & Plan (05/10/2023 5:43 PM SUPERVISOR WET END): Though the patient does not have 10 of symptoms beyond his chronic diarrhea, his imaging showed worsening of ileal inflammation, his CRP has been rising over the last 2 infusions in his hemoglobin dipped in February. This also seems to correlate with his declining infliximab levels. He currently has a level that is below our desired range to manage perianal disease so we would like to shorten his interval to every 4 weeks for better control of his disease. We will also try to have his infusion over 1 hour to make this frequency change less burdensome. We will plan to repeat his colonoscopy during the summer to evaluate his response, cancer surveillance, and maintain the patency of his strictures. Assessment & Plan (2019 3:08 PM CDT): The patient's symptoms seem most consistent with a kidney stone. He does not report overt obstructive symptoms and does not recall a significant benefit from his stricture dilation. He still has some mild symptoms of bloating but does not find this severe enough to consider a repeat colonoscopy at this time. He will need a surveillance colonoscopy in August of next year given the duration of disease and desire to maintain patency of his strictures. His Remicade level will be checked with his next infusion. He can try taking Benefiber or very low-dose Imodium to control his stool frequency. We also discussed the possibility of Colestid given his history of a ileocolonic resection and cholecystectomy. Plan 1. Check Remicade levels with next infusion (follow-up on possible PA request) 2. Repeat colonoscopy in August 2020 3. Consider low-dose Imodium and or Benefiber to control stool frequency. Anorectal fistula 02/16/2017 Resolved Problems Problem Noted Date Diagnosed Date Resolved Date Crohn's disease 10/02/2017 10/16/2020 Social History Tobacco Use Types Packs/Day Years Used Date Smoking Tobacco: Never Smokeless Tobacco: Never Tobacco Cessation:Counseling Given: Not Answered Alcohol Use Standard Drinks/Week Comments Yes 0 [...] on file Legal Sex Male 10:18 AM SUPERVISOR WET END Gender Identity Not on file Sexual Orientation Straight 03/26/2020 2: 29 PM SUPERVISOR WET END Last Filed Vital Signs Vital Sign Reading Time Taken Comments Blood Pressure 155/96 09/12/2024 1:00 PM CDT Pulse 86 09/12/2024 1:00 PM CDT Temperature 36.8 C (98.3 F) 05/09/2024 1:16 PM SUPERVISOR WET END Respiratory Rate 16 09/12/2024 1:00 PM CDT Oxygen Saturation 98% 02/26/2024 1:25 PM CDT Inhaled Oxygen Concentration - - Weight 84.8 kg (187 lb) 05/09/2024 1:16 PM SUPERVISOR WET END Height 188 cm (6' 2 ) 02/26/2024 11:02 AM CDT Body Mass Index 24.01 02/26/2024 11:02 AM CDT Plan of Treatment Not on file Procedures Procedure Name Priority Date/Time Associated Diagnosis Comments CBC WITHOUT DIFFERENTIAL Routine 08/15/2024 1:23 PM CDT Crohn's disease of both small and large intestine with fistula (HCC) COMPREHENSIVE METABOLIC PANEL Routine 08/15/2024 1:23 PM CDT Crohn's disease of both small and large intestine with fistula (HCC) CRP (ACUTE PHASE) Routine 08/15/2024 1:2 3 PM CDT Crohn's disease of both small and large intestine with fistula (HCC) T-SPOT.TB Routine 08/15/2024 1:23 PM CDT Crohn's disease of both small and large intestine with fistula (HCC) HEPATITIS B CORE ANTIBODY, TOTAL Routine 08/15/2024 1:23 PM CDT Crohn's disease of both small and large intestine with fistula (HCC) HEPATITIS B SURFACE ANTIBODY (IMMUNE STATUS) Routine 08/15/2024 1:23 PM CDT Crohn's disease of both small and large intestine with fistula (HCC) HEPATITIS B SURFACE ANTIGEN Routine 08/15/2024 1:23 PM CDT Crohn's disease of both small and large intestine with fistula (HCC) CALPROTECTIN, FECAL Routine 07/17/2024 6 :42 AM SUPERVISOR WET END Crohn's disease of both small and large intestine with fistula (HCC) Abdominal pain Change in bowel habits Diarrhea, unspecified type Nausea and vomiting, unspecified vomiting type CLOSTRIDIUM DIFFICILE TOXIN B, QUALITATIVE, REAL-TIME PCR Routine 07/17/2024 6:42 AM SUPERVISOR WET END CLOSTRIDIUM DIFFICILE TOXIN/GDH WITH REFLEX TO PCR Routine 07/17/2024 6:42 AM SUPERVISOR WET END Crohn's disease of both small and large intestine with fistula (HCC) Abdominal pain Change in bowel habits Diarrhea, unspecified type Nausea and vomiting, unspecified vomiting type COLONOSCOPY 02/26/2024 12:21 PM CDT from Last 3 Months or Most Recently Relevant to Health Maintenance Results * T-SPOT.TB Blood (08/15/2024 1:23 PM CDT) [facility] T-SPOT.TB Negative SeeBelow Comment: Normal Value: Negative A negative test result does not exclude the possibility of exposure to or infection with Mycobacterium tuberculosis (M. tuberculosis). Patients with recent exposure to TB infected individuals exhibiting a negative T-SPOT.TB result should be considered for retesting within 6 weeks or if other relevant clinical symptoms indicate. Results from T-SPOT.TB testing must be used in conjunction with each individual's epidemiological history, current medical status, and results of other diagnostic evaluations. The T-SPOT.TB test is qualitative and results are reported as positive, borderline or negative, given that the test controls perform as expected. In line with the Centers for Disease Control and Prevention's 2010 recommendation to report quantitative measurements alongside the qualitative result, the laboratory provides spot counts for informational purposes only. The T-SPOT.TB test should not be interpreted as a quantitative test. T-SPOT.TB Panel A Spot Count 0 [facility] T-SPOT.TB Panel B Spot Count 1 [facility] T-SPOT.TB Negative Control Passed [facility] T-SPOT.TB Positive Control Passed [facility] Comment: Test Performed at: [facility], [address] [place] [address] SILVIA ZAPIEN,PHD Blood 08/15/2024 1:23 PM CDT 08/15/2024 5:17 PM CDT Narrative [facility] - 08/17/2024 11:52 AM CDT 2 small tubes sent Tanmay Miller MD PhD LAB MICROBIOLOGY - [email or web address] L ORDERABLES Final Result [facility] [place] [address] * Hepatitis B core antibody, total Blood (08/15/2024 1:23 PM CDT) [facility] Hep B core IgG/IgM Nonreactive Nonreactive Blood 08/15/2024 1:23 PM CDT 08/15/2024 4:31 PM CDT Tanmay Miller MD PhD LAB MICROBIOLOGY - GENERA L ORDERABLES Final Result [facility] [place] [address] * Hepatitis B surface antibody (immune status) Blood (08/15/2024 1:23 PM CDT) [facility] HBsAb (immune status) Nonreactive Comment:This result is consi stent with a lack of immunity to Hepatitis B Virus when used in the setting of routine screening. Current interpretative data was last revised on 22 Blood 08/15/2024 1:23 PM CDT 08/15/2024 4:31 PM CDT Tanmay Miller MD PhD LAB MICROBIOLOGY - GENERA L ORDERABLES Final Result Performing Organization Address City/[facility] Co de Phone Number [facility] [place] [address] * Hepatitis B Surface Antigen Blood (08/15/2024 1:23 PM CDT) Pathologist [facility] [place] HepBsAg Nonreactive Nonreactive Blood 08/15/2024 1:23 PM CDT 08/15/2024 4:31 PM CDT Tanmay Miller MD PhD LAB MICROBIOLOGY - GENERA L ORDERABLES Final Result Performing Organization Address [facility] de Phone Number [facility] [place] [address] * CBC without differential (08/15/2024 1:23 PM CDT) Pathologist [facility] [place] White Blood Count 6.4 3.6 - 11.2 K/uL [facility] RBC 4.50 4.06 - 5.63 M/uL [facility] Hemoglobin 13.8 13.0 - 17.5 g/dL [facility] Hematocrit 40.8 40.7 - 50.3 % [facility] MCV 90.6 80.0 - 97.6 fL [facility] MCH 30.6 26.7 - 33.7 pg [facility] MCHC 33.8 32.7 - 35.5 g/dL [facility] RBC Dist Width 13.5 12.3 - 17.0 % [facility] Platelet Count 283 140 - 440 K/uL [facility] MPV 7.8 6.8 - 10.4 fL [facility] Blood 08/15/2024 1:23 PM CDT 08/15/2024 2:04 PM CDT Narrative [facility] - 08/15/2024 2:25 PM CDT Draw labs every 8 weeks prior maintenance doses Draw labs every 2 weeks prior to the induction doses Tanmay iMller MD PhD LAB BLOOD ORDERABLES Margaret l Result Performing Organization Address City/[facility] Co de Phone Number [facility] * CRP (acute phase) (08/15/2024 1:23 PM CDT) [facility] C-Reactive Protein, Acute <3.0 <5.0 mg/L [facility] Blood 08/15/2024 1:23 PM CDT 08/15/2024 2:04 PM CDT Narrative [facility] - 08/15/2024 2:52 PM CDT Draw labs every 8 weeks prior maintenance doses Draw labs every 2 weeks prior to the induction doses Tanmay Miller MD PhD LAB BLOOD ORDERABLES Margaret l Result Performing Organization Address [facility] de Phone Number [facility] * (ABNORMAL) Comprehensive metabolic panel (08/15/2024 1:23 PM CDT) [facility] Total Protein 8.1 6.1 - 8.4 g/dL [facility] Albumin 4.4 3.5 - 5.2 g/dL [facility] Calcium 9.5 8.6 - 10.3 mg/dL [facility] Comment:Repeated and Verifie d BUN 10 7 - 23 mg/dL [facility] Total Bilirubin 0.56 0.20 - 1.40 mg/dL [facility] Alk Phos, Total 70 35 - 129 IU/L [facility] AST (SGOT) INTERFERENCE - HEMOLYSIS 11 - 47 IU/L [facility] ALT (SGPT) 48 6 - 53 IU/L [facility] Creatinine 1.25 0.70 - 1.30 mg/dL [facility] Sodium 141 135 - 145 mmol/L [facility] Potassium INTERFERENCE - HEMOLYSIS 3.3 - 5.1 mmol/L [facility] Chloride 105 95 - 107 mmol/L [facility] CO2 Content 22 21 - 29 mmol/L [facility] Glucose 104(H) 64 - 99 mg/dL [facility] Comment: NONFASTING GLUCOSE RANGE = 64-199 mg/dL FASTING GLUCOSE 64 - 99 = NORMAL FASTING GLUCOSE 100 - 125 = IMPAIRED FASTING GLUCOSE FASTING GLUCOSE >=126 = PROVISIONAL DIAGNOSIS OF DIABETES eGFR 70.6 >60.0 mL/min/1 .73 m2 [facility] Blood 08/15/2024 1:23 PM CDT 08/15/2024 2:04 PM CDT Narrative [facility] - 08/15/2024 3:13 PM CDT Specimen Hemolyzed Draw labs every 8 weeks prior maintenance doses Draw labs every 2 weeks prior to the induction doses Tanmay Miller MD PhD LAB BLOOD ORDERABLES Margaret Result [facility] * (ABNORMAL) Clostridium difficile Toxin B, Qualitative, Real-Time PCR (07/17/2024 6:42 AM SUPERVISOR WET END) Pathologist [facility] [place] C. difficile toxin DETECTED( A) NOT DETECTED [facility] Comment: The stool sample is POSITIVE for toxigenic C. difficile. This result is suggestive of C. difficile infection (CDI) if accompanied by appropriate clinical symptoms. Simultaneous testing does not identify a genetic marker of the hypervirulent 027/NAP1/BI strain of toxigenic C. difficile. This test is for use only with liquid or soft stools; performance characteristics of other clinical specimen types have not been established. This assay was performed by [employer] Gene[employer]pert(R) PCR. The performance characteristics of this assay have been determined by [employer]. Performance characteristics refer to the analytical performance of the test. For additional information, please refer to http://education.Snyppit/faq/GAK300 (This link is being provided for informational/educational purposes only.) 07/17/2024 6:42 AM SUPERVISOR WET END 07/18/2024 6:34 AM SUPERVISOR WET END Narrative [facility] - 07/25/2024 2:08 AM SUPERVISOR WET END FASTING:NO FASTING: NO Tanmay Miller MD PhD LAB MICROBIOLOGY - GENERA L ORDERABLES Final Result Performing Organization Address [facility] Co de Phone Number [facility] [address] [address] * Calprotectin, fecal (07/17/2024 6:42 AM SUPERVISOR WET END) Calprotectin, Stool 14 mcg/g [facility], Comment: Reference Range: <50 Normal 50-120 Borderline >120 Elevated LIQUID STOOL. Calprotectin in Crohn's disease and ulcerative colitis can be five to several thousand times above the reference population (50 mcg/g or less). Levels are usually 50 mcg/g or less in healthy patients and with irritable bowel syndrome. Repeat testing in 4-6 weeks is suggested for borderline values. Stool 07/17/2024 6:42 AM SUPERVISOR WET END 07/18/2024 6:34 AM SUPERVISOR WET END Narrative [facility] - 07/25/2024 2:08 AM SUPERVISOR WET END FASTING:NO FASTING: NO Tanmay Miller MD PhD LAB BODY FLUIDS AND STOOL S ORDERABLES Final Result Performing Organization Address [facility] de Phone Number [facility] [employer] [facility], [address] [place] [address] * Clostridium difficile Toxin/GDH with Reflex to PCR Stool (07/17/2024 6:42 AM SUPERVISOR WET END) C difficile Toxins/GDH w/refl to PCR [facility] Comment: CLOSTRIDIUM DIFFICILE TOXIN/GDH W/REFL TO PCR Micro Number: [id number] Test Status: Final Specimen Source: Stool Specimen Quality: Adequate GDH Antigen: Detected Toxin A and B: Not Detected COMMENT: Indeterminate. Specimen forwarded for toxigenic C. difficile PCR testing. For additional information, please refer to http://education.Snyppit/faq/UFJ793 (This link is being provided for informational/educational purposes only.) Stool 07/17/2024 6:42 AM SUPERVISOR WET END 07/18/2024 6:34 AM SUPERVISOR WET END Narrative [facility] - 07/25/2024 2:08 AM SUPERVISOR WET END FASTING:NO FASTING: NO Tanmay Miller MD PhD LAB MICROBIOLOGY - GENERA L ORDERABLES Final Result [facility] [address] [place] [address] * Colonoscopy (02/26/2024 12:21 PM CDT) Anatomical Region Laterality Modality Other Narrative Procedure Note Tanmay Miller MD PhD - 02/26/2024 12:21 PM CDT ENDOSCOPY LAB Patient Name: Ector Phan Procedure Date: 02/26/2024 12:21 PM Date of : 1975 Admit Type: Outpatient Age: 48 Gender: Male Attending MD: Tanmay Miller MD,PHD Room: [facility] ENDOSCOPY ROOM 03 Note Status: Finalized Procedure: Colonoscopy Indications: High risk colon cancer surveillance: Crohn'scolitis of 8 (or more) years duration with one-third (ormore) of the colon involved, Last colonoscopy: December2020 Providers: Tanmay Miller MD, PHD Referring MD: Brodie Fierro M.D. Medicines: Monitored Anesthesia Care Complications: No immediate complications. Estimated Blood Loss: Estimated blood loss: none. Procedure: Pre-Anesthesia Assessment: - Immediately prior to administration ofmedications, the patient was re-assessed for adequacy to receive sedatives. The benefits, risks and alternatives of theprocedure and sedation were discussed and informed consentwas obtained. All questions were answered. Please referto the signed informed consent document in the medical record. The scope was passed under direct vision.The [id number] was introduced through the anusand advanced to the terminal ileum. The colonoscopy was performed without difficulty. The patient tolerated the procedure well. The quality of the bowel preparation was excellent. The quality of the bowel preparation was evaluated using the BBPS (BostonBowel Preparation Scale) with scores of: Right Colon = 3, Transverse Colon = 3 and Left Colon = 3 (entiremucosa seen well with no residual staining, smallfragments of stool or opaque liquid). The total BBPS score equals 9. The bowel preparation used was SUPREP via split dose instruction. Bowel prep was administered using a split dose. Findings: There was evidence of a prior functional end-to-end ileo-colonic anastomosis in the ascending colon. This was characterized by mild stenosis and ulceration. The anastomosis was traversed afterdilation. A TTS dilator was passed through the scope. Dilation with a 12-13.5-15mm colonic balloon dilator was performed. The guy-terminal ileum contained a mild stenosis x 2 measuring 1 cm (inner diameter) that was traversed. A TTS dilator was passed through the scope. Dilation with a 12-13.5-15 mm colonic balloon dilator was performed. The guy-terminal ileum muocsal appeared normal. Biopsies were takenwith a cold forceps for histology. Normal mucosa was found in the entire colon. Biopsies were taken witha cold forceps for histology. A 15 mm ulcerated inflammatory polyp was found in the anus. The polyp was Starr classification Is (protruding, sessile). 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 Dilatedto 15 mm - The examined portion of the ileum was normal. Biopsied. - Normal mucosa in the entire colon. Biopsied. - One 15 mm ulcerated inflammatory polyp at theanus. Recommendation: - Await pathology results. - Continue present medications. - Return to GI clinic as previously scheduled. Attending Participation: I personally performed the entire procedure. Electronically signed by Tanmay Miller MD. Tanmay Miller MD, PHD 02/26/2024 12:59:03 PM Number of Addenda: 0 Note Initiated On: 02/26/2024 12:21 PM Tanmay Miller MD PhD ENDOSCOPY PROCEDURES Margaret l Result from Last 3 Months or Most Recently Relevant to Health Maintenance Insurance [employer] Advance Directives For more information, please contact: [phone] * Full Code (Latest Code Status on File) Date Activated Date Inactivated Comments 02/26/2024 11:02 AM 02/26/2024 6:14 PM * Full Code Date Activated Date Inactivated Comments 12/21/2020 11:41 AM 12/21/2020 6:32 PM Care Teams Director Mobile Relationship Specialty Start Date End Date Brodie Fierro MD [address] [place] [address] PCP - General 07/07/16 Tanmay Miller MD PhD [address] [address] Referring Physician Gastroenterology 05/06/21
--- OUTSIDE RECORDS SUMMARY | 2024-09-21 16:33 | XMS_ITS | Clinical Summary ---
Author Organization [facility] Address [address] [place] [address] Care Team Providers Care Sole Stainer Name Role Phone Brodie Fierro MD Primary Care Provider [phone] Tanmay Miller MD PhD Unavailable [phone] Allergies No known active allergies Medications INFLIXIMAB (REMICADE IV)Indications:l ast 05/18/2021. For crohns Infuse into a venous catheter One infusion every 4 weeks Active brljdtjn-nwsa-TM -calcium-mins 27 mg iron-400 mcg tabletIndication s:Vitamin [...] total) by mouth every morning [address] (CYMBALTA) 30 mg capsule Take 1 capsule (30 mg total) by mouth daily [address] (CYMBALTA) 60 mg capsule Take 1 capsule (60 mg total) by mouth daily In addition to 30 mg for a total of 90 mg 90 capsule 1 Active busPIRone (BUSPAR) 15 mg tablet Take 1.5 tablets (22.5 mg total) by mouth daily 135 tablet 1 5 Active Active Problems Problem Noted Date Diagnosed Date Other dietary vitamin B12 deficiency anemia 04/22 Assessment & Plan (05/10/2023 5:45 PM DAIRY EQUIPMENT REPAIRER): The patient's B12 was adequate on his current level of supplementation when last checked. We would like him to continue this for the foreseeable future Major depressive disorder, recurrent episode, mo derate 03/10/2023 Anal polyp 06/03/2021 Overview (06/03/2021): Added automatically from request for surgery [id number] Assessment & Plan (05/10/2023 5:44 PM DAIRY EQUIPMENT REPAIRER): Happily the patient is not having any trouble since the excision in 2021. If these return, we will try to get him established with a new Colorectal surgeon. High risk medications (not anticoagulants) long- term use 10/16/2020 Assessment & Plan (05/09/2024 5:38 PM DAIRY EQUIPMENT REPAIRER): He should continue close follow-up with his care team and stay up-to-date with his vaccinations. He plans to get Shingrix once he turns 49 but was offered the option of having it sooner with his infusion if desired as he is eligible before the age of 49 based on his immunosuppression Assessment & Plan (05/10/2023 5:44 PM DAIRY EQUIPMENT REPAIRER): Based on the patient's immunosuppression, he is eligible for Shingrix and Prevnar 20 Recurrent kidney stones 2019 Assessment & Plan (05/09/2024 5:37 PM DAIRY EQUIPMENT REPAIRER): Unfortunately patient is not a huge fan [...] 10/09/2019 Assessment & Plan (05/26/2020 10:36 AM DAIRY EQUIPMENT REPAIRER): Patient with hx of mild OUD, uses opioids when he has pain from kidney stones and this triggers cravings for him. Sometimes he uses these prescription opioids to feel good but is now holding onto his prescriptions and locking them up. He denies getting opioids from other sources besides his rarely prescribed opioids. Assessment & Plan (03/27/2020 2:22 PM DAIRY EQUIPMENT REPAIRER): Patient with hx of mild OUD, uses [...] 08/08/2018 Assessment & Plan (06/12/2022 7:47 AM DAIRY EQUIPMENT REPAIRER): Patient meets criteria for ALAN, continue Cymbalta, continue Buspar. Assessment & Plan (12/10/2021 4:19 PM CDT): Patient meets criteria for ALAN, continue Cymbalta, continue Buspar. Assessment & Plan (05/13/2021 1:29 PM DAIRY EQUIPMENT REPAIRER): Patient meets criteria for ALAN, continue Cymbalta, continue Buspar. Assessment & Plan (02/03/2021 4:53 PM CDT): Patient meets criteria for ALAN, continue Cymbalta, continue Buspar. Assessment & Plan (05/26/2020 10:36 AM DAIRY EQUIPMENT REPAIRER): Patient meets criteria for ALAN, continue Cymbalta, continue Buspar. Start therapy. Assessment & Plan (03/27/2020 2:21 PM DAIRY EQUIPMENT REPAIRER): Patient meets criteria for ALAN, continue Cymbalta, [...] Buspar. Assessment & Plan (04/02/2019 10:28 AM DAIRY EQUIPMENT REPAIRER): Patient meets criteria for ALAN, continue Cymbalta. [...] 08/08/2018 Assessment & Plan (06/12/2022 7:47 AM DAIRY EQUIPMENT REPAIRER): 46 yo M with h/o MDD, ALAN, [...] months Assessment & Plan (05/13/2021 1:28 PM DAIRY EQUIPMENT REPAIRER): 45 yo M with h/o MDD, ALAN, [...] months Assessment & Plan (05/26/2020 10:36 AM DAIRY EQUIPMENT REPAIRER): 44 yo M with h/o MDD, ALAN, [...] weeks Assessment & Plan (03/27/2020 2:22 PM DAIRY EQUIPMENT REPAIRER): 44 yo M with h/o MDD, ALAN, [...] weeks Assessment & Plan (04/02/2019 10:57 AM DAIRY EQUIPMENT REPAIRER): 43 yo M with h/o MDD, ALAN, [...] consider starting therapy. You could go to [facility] [place] for therapy, or [facility]. [facility] [place] takes therapy patients as well. You could also go on [employer] [place] or [facility] to find a therapist who takes your [...] (07/20/2018): Added automatically from request for surgery [id number] Assessment & Plan (05/09/2024 5:34 PM DAIRY EQUIPMENT REPAIRER): Happily the patient's disease activity appears to [...] infusion. Assessment & Plan (05/10/2023 5:43 PM DAIRY EQUIPMENT REPAIRER): Though the patient does not have 10 [...] Date Resolved Date Crohn's disease 10/02/2017 10/16/2020 Encounters Date Type Department Care Team Description 09/12/2024 1:00 PM CDT Infusion [facility] Infusion Therapy [address] [place] [address] [place] [address] Crohn's disease of both small and large intestine with fistula (HCC) (Primary Dx) 08/22/2024 Orders Only [facility] Gastroenterology [address] [place] [address] [place] [address] [place] [address] Candie Brooks RN 08/19/2024 Orders Only [facility] Department of Psychiatry [address] [facility] [address] [place] [address] Mary Anne Gonzalez PA 08/16/2024 Results Follow-Up [facility] Gastroenterology [address] [place] [address] [place] [address] [place] [address] Tanmay Miller MD PhD 08/16/2024 Results Follow-Up [facility] Gastroenterology [address] [place] [address] [place] [address] [place] [address] Tanmay Miller MD PhD 08/15/2024 2:15 PM CDT Lab [facility] Endocrinology Metabolism and Lipid [address] [place] [address] [place] [address] Crohn's disease of both small and large intestine with fistula (HCC) [K50.813] (Primary Dx) 08/15/2024 1:30 PM CDT Infusion [facility] Infusion Therapy [facility] [address] [place] [address] [place] [address] Crohn's disease of both small and large intestine with fistula (HCC) (Primary Dx) 08/15/2024 1:23 PM CDT - 08/15/2024 11:59 PM CDT Hospital Encounter [facility] [address] [place] [address] Crohn's disease of both small and large intestine with fistula (HCC) Discharge Disposition: Discharge to home or self care 08/14/2024 11:00 AM CDT Office Visit [facility] Department of Psychiatry [address] [facility] [address] [place] [address] Mary Anne Gonzalez PA ALAN (generalized anxiety disorder) (Primary Dx); MDD (major depressive disorder), recurrent, in partial remission 07/31/2024 Orders Only [facility] Gastroenterology [address] [facility] 12th [place] [address] [place] [address] Candie Brooks RN 07/26/2024 Results Follow-Up [facility] Gastroenterology [address] [place] [address] [place] [address] [place] [address] Tanmay Miller MD PhD 07/25/2024 Documentation [facility] Gastroenterology [address] [place] [address] [place] [address] [place] [address] Candie Brooks RN C. diff + 07/18/2024 1:30 PM DAIRY EQUIPMENT REPAIRER Infusion [facility] Infusion Therapy [address] [place] [address] 5th [place] [address] [place] [address] Crohn's disease of both small and large intestine with fistula (HCC) (Primary Dx) 07/17/2024 Telephone [facility] Psychiatry [address] [place] [address] Nadya Norton 07/09/2024 Documentation [facility] Gastroenterology [address] [place] [address] [place] [address] [place] [address] Candie Brooks, SRAVANI Symptoms/recommenda tions 07/09/2024 Orders Only [facility] Gastroenterology [address] [place] [address] [place] [address] [place] [address] Candie Brooks, SRAVANI from Last 3 Months Surgical History Surgery Date Site/Laterality Comments BOWEL RESECTION 05/22/1990 - 05/21/1991 LITHOTRIPSY 2017, 2012 ANAL EXAMINATION UNDER ANESTHESIA 05/22/2016 - 7 seton ANAL DILATION 08/27/2018 COLONOSCOPY 02/06/2017, 2020 INGUINAL HERNIA REPAIR 05/22/2011 - 05/21/2012 Left POLYPECTOMY Medical History Medical History Date Comments Crohn's disease (HCC) History of nephrolithiasis Chronic diarrhea Colon polyp Hypertension Kidney stone Depression Family History Medical History Relation Name Comments Hypertension Father Stroke Father Anesthesia problems Neg Hx Malig Hyperthermia Neg Hx Relation Name Status Comments Father Social History Tobacco Use Types Packs/Day Years [...] on file Legal Sex Male 10:18 AM DAIRY EQUIPMENT REPAIRER Gender Identity Not on file Sexual Orientation Straight 03/26/2020 2: 29 PM DAIRY EQUIPMENT REPAIRER Obstetrics History Last Filed Vital Signs Vital Sign Reading Time Taken Comments Blood Pressure 155/96 09/12/2024 1:00 PM CDT Pulse 86 09/12/2024 1:00 PM CDT Temperature 36.8 C (98.3 F) 05/09/2024 1:16 PM DAIRY EQUIPMENT REPAIRER Respiratory Rate 16 09/12/2024 1:00 PM CDT Oxygen Saturation 98% 02/26/2024 1:25 PM CDT Inhaled Oxygen Concentration - - Weight 84.8 kg (187 lb) 05/09/2024 1:16 PM DAIRY EQUIPMENT REPAIRER Height 188 cm (6' 2 ) 02/26/2024 11:02 AM CDT Body Mass Index 24.01 02/26/2024 11:02 AM CDT Plan of Treatment Health Maintenance Due Date Last Done Comments Depression Screening 1975 Hepatitis C Screening 1975 DTaP/Tdap/Td Vaccine (1 - Tdap) 1985 Regular Well Visit/Exam 18-64 1992 Pneumococcal vaccine <65 (1 of 2 - PCV) 1993 Zoster Vaccine (1 of 2) 1993 Covid-19 Vaccine (3 - Pfizer risk series) 08/11/2020 07/14/2020, 06/22/2020 Influenza Vaccine (Season Ended) 2025 03/15/20 21 Colon Cancer Screening-Colonoscopy 02/25/2034 02/26/2024, 12/21/2020, 08/27/2018, Additional history exists Hepatitis B Screening Completed 08/15/2024 , 04/18/2016, 04/18/2016, Additional history exists Procedures Procedure Name Priority Date/Time Associated Diagnosis [...] CALPROTECTIN, FECAL Routine 07/17/2024 6 :42 AM DAIRY EQUIPMENT REPAIRER Crohn's disease of both small and large intestine with fistula (HCC) Abdominal pain Change in bowel habits Diarrhea, unspecified type Nausea and vomiting, unspecified vomiting type CLOSTRIDIUM DIFFICILE TOXIN B, QUALITATIVE, REAL-TIME PCR Routine 07/17/2024 6:42 AM DAIRY EQUIPMENT REPAIRER CLOSTRIDIUM DIFFICILE TOXIN/GDH WITH REFLEX TO PCR Routine 07/17/2024 6:42 AM DAIRY EQUIPMENT REPAIRER Crohn's disease of both small and large intestine with fistula (HCC) Abdominal pain Change in bowel habits Diarrhea, unspecified type Nausea and vomiting, unspecified vomiting type COLONOSCOPY 02/26/2024 12:21 PM CDT from Last 3 Months or Most Recently Relevant to Health Maintenance Results * T-SPOT.TB Blood (08/15/2024 1:23 PM CDT) [facility] T-SPOT.TB Negative SeeBelow Comment: Normal Value: Negative [...] test. T-SPOT.TB Panel A Spot Count 0 [facility] T-SPOT.TB Panel B Spot Count 1 [facility] T-SPOT.TB Negative Control Passed [facility] T-SPOT.TB Positive Control Passed [facility] Comment: Test Performed at: [facility] [address] [place] [address] SILVIA ZAPIEN,PHD Blood 08/15/2024 1:23 PM CDT 08/15/2024 5:17 PM CDT Narrative [facility] - 08/17/2024 11:52 AM CDT 2 small tubes sent Tanmay Miller MD PhD LAB MICROBIOLOGY - GENERA L ORDERABLES Final Result Performing Organization Address City/[facility] Co de Phone Number [facility] [place] [address] * Hepatitis B core antibody, total Blood (08/15/2024 1:23 PM CDT) Hep B core IgG/IgM Nonreactive Nonreactive Blood 08/15/2024 1:23 PM CDT 08/15/2024 4:31 PM CDT Tanmay Miller MD PhD LAB MICROBIOLOGY - GENERA L ORDERABLES Final Result Performing Organization Address [facility] [place] [address] * Hepatitis B surface antibody (immune status) Blood (08/15/2024 1:23 PM CDT) HBsAb (immune status) Nonreactive Comment:This result is consi stent with a lack of immunity to Hepatitis B Virus when used in the setting of routine screening. Current interpretative data was last revised on 22 Blood 08/15/2024 1:23 PM CDT 08/15/2024 4:31 PM CDT Tanmay Miller MD PhD LAB MICROBIOLOGY - GENERA L ORDERABLES Final Result Performing Organization Address [facility] [place] [address] * Hepatitis B Surface Antigen Blood (08/15/2024 1:23 PM CDT) HepBsAg Nonreactive Nonreactive Blood 08/15/2024 1:23 PM CDT 08/15/2024 4:31 PM CDT us Tanmay Miller MD PhD LAB MICROBIOLOGY - GENERA L ORDERABLES Final Result [facility] Department [place] [address] * CBC without differential (08/15/2024 1:23 PM CDT) White Blood Count 6.4 3.6 - 11.2 [...] PM CDT 08/15/2024 2:04 PM CDT Narrative [facility] - 08/15/2024 2:25 PM CDT Draw labs every 8 weeks prior maintenance doses Draw labs every 2 weeks prior to the induction doses us Tanmay Miller MD PhD LAB BLOOD ORDERABLES Margaret l Result [facility] * CRP (acute phase) (08/15/2024 1:23 PM CDT) C-Reactive Protein, Acute <3.0 <5.0 mg/L [facility] Blood 08/15/2024 1:23 PM CDT 08/15/2024 2:04 PM CDT Narrative [facility] - 08/15/2024 2:52 PM CDT Draw labs every 8 weeks prior maintenance doses Draw labs every 2 weeks prior to the induction doses us Tanmay Miller MD PhD LAB BLOOD ORDERABLES Margaret christine Result [facility] * (ABNORMAL) Comprehensive metabolic panel (08/15/2024 1:23 PM CDT) Total Protein 8.1 6.1 - 8.4 g/dL [...] PM CDT 08/15/2024 2:04 PM CDT Narrative [facility] - 08/15/2024 3:13 PM CDT Specimen Hemolyzed Draw labs every 8 weeks prior maintenance doses Draw labs every 2 weeks prior to the induction doses Tanmay Miller MD PhD LAB BLOOD ORDERABLES Margaret l Result Performing Organization Address City/[facility]/ZIP Co de Phone Number [facility] * (ABNORMAL) Clostridium difficile Toxin B, Qualitative, Real-Time PCR (07/17/2024 6:42 AM DAIRY EQUIPMENT REPAIRER) C. difficile toxin DETECTED( A) NOT DETECTED [facility] Comment: The stool sample is POSITIVE for [...] been established. This assay was performed by [employer](R) PCR. The performance characteristics of this assay have been determined by [employer]. Performance characteristics refer to the analytical performance of the test. For additional information, please refer to http://education.MiMedia/faq/VHY202 (This link is being provided for informational/educational purposes only.) 07/17/2024 6:42 AM DAIRY EQUIPMENT REPAIRER 07/18/2024 6:34 AM DAIRY EQUIPMENT REPAIRER Narrative [facility] - 07/25/2024 2:08 AM DAIRY EQUIPMENT REPAIRER FASTING:NO FASTING: NO Tanmay Miller MD PhD LAB MICROBIOLOGY - GENERA L ORDERABLES Final Result Performing Organization Address City/[facility]/ZIP Co de Phone Number [facility] [address] [place] [address] * Calprotectin, fecal (07/17/2024 6:42 AM DAIRY EQUIPMENT REPAIRER) Calprotectin, Stool 14 mcg/g [facility], Comment: Reference Range: <50 Normal 50-120 Borderline >120 Elevated LIQUID STOOL. Calprotectin in Crohn's disease and ulcerative colitis can be five to several thousand times above the reference population (50 mcg/g or less). Levels are usually 50 mcg/g or less in healthy patients and with irritable bowel syndrome. Repeat testing in 4-6 weeks is suggested for borderline values. Stool 07/17/2024 6:42 AM DAIRY EQUIPMENT REPAIRER 07/18/2024 6:34 AM DAIRY EQUIPMENT REPAIRER Narrative [facility] - 07/25/2024 2:08 AM DAIRY EQUIPMENT REPAIRER FASTING:NO FASTING: NO Tanmay Miller MD PhD LAB BODY FLUIDS AND STOOL S ORDERABLES Final Result Performing Organization Address [facility] Co de Phone Number [facility], [address] [place] [address] * Clostridium difficile Toxin/GDH with Reflex to PCR Stool (07/17/2024 6:42 AM DAIRY EQUIPMENT REPAIRER) C difficile Toxins/GDH w/refl to PCR [facility] Comment: CLOSTRIDIUM DIFFICILE TOXIN/GDH W/REFL TO PCR Micro Number: [id number] Test Status: Final Specimen Source: Stool Specimen Quality: Adequate GDH Antigen: Detected Toxin A and B: Not Detected COMMENT: Indeterminate. Specimen forwarded for toxigenic C. difficile PCR testing. For additional information, please refer to http://education.MiMedia/faq/SRC498 (This link is being provided for informational/educational purposes only.) Stool 07/17/2024 6:42 AM DAIRY EQUIPMENT REPAIRER 07/18/2024 6:34 AM DAIRY EQUIPMENT REPAIRER Narrative [facility] - 07/25/2024 2:08 AM DAIRY EQUIPMENT REPAIRER FASTING:NO FASTING: NO Tanmay Miller MD PhD LAB MICROBIOLOGY - GENERA L ORDERABLES Final Result Performing Organization Address [facility]/ZIP Co de Phone Number [facility] [address] [address] [address] * Colonoscopy (02/26/2024 12:21 PM CDT) Anatomical Region Laterality Modality Other Narrative Procedure Note Tanmay Miller MD PhD - 02/26/2024 12:21 PM CDT ENDOSCOPY LAB Patient Name: Ector Phan Procedure Date: 02/26/2024 12:21 PM Date of : 1975 Admit Type: Outpatient Age: 48 Gender: Male Attending MD: Tanmay Miller MD,PHD Room: [facility] ENDOSCOPY ROOM 03 Note Status: Finalized Procedure: [...] The scope was passed under direct vision.The [id number] was introduced through the anusand advanced to [...] Health Maintenance Insurance [employer] [facility] H[employer]/PPO Address: [address] [address] [employer] [facility] [employer] [facility] [employer]/PPO Address: [address] [address] [place] [address] Advance Directives For more information, please contact: [phone] * Full Code (Latest Code Status on File) Date Activated Date Inactivated Comments 02/26/2024 11:02 AM 02/26/2024 6:14 PM * Full Code Date Activated Date Inactivated Comments 12/21/2020 11:41 AM 12/21/2020 6:32 PM Care Teams Sole Stainer Relationship Specialty Start Date End Date Brodie Fierro MD [address] [address] PCP - General 07/07/16 Tanmay Miller MD PhD [address] [address] Referring Physician Gastroenterology 05/06/21
--- OUTSIDE RECORDS SUMMARY | 2024-09-21 16:33 | XMS_ITS | Encounter Summary ---
Author Organization [facility] Address [address] [place] [address] Phone Care Team Providers Care Welding Foreman Name Role Phone Brodie Fierro MD Primary Care Provider [phone] Tanmay Miller MD PhD Unavailable [phone] Encounter Details Date Type Department Care Team (Late st Contact Info) Description 08/16/2024 Results Follow-Up [facility] Gastroenterology [address] [facility] Advanced Medicine 12th [place] [address] [place] [address] Tanmay Miller MD PhD [address] [place] [address] Social History Tobacco Use Types Packs/Day Years [...] on file Legal Sex Male 10:18 AM 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
--- OUTSIDE RECORDS SUMMARY | 2024-09-21 16:33 | XMS_ITS | Clinical Summary ---
Author Organization [facility] Address [address] [place] [address] Care Team Providers Care Banana Carrier Name Role Phone Unavailable Primary Care Provider Unavailabl e Social History Tobacco Use Types Packs/Day Years Used Date Smoking Tobacco: Never Assessed Sex and Gender Information Value Date Recorded Sex Assigned at Not on file Legal Sex Male 8:11 PM CDT Gender Identity Not on file Sexual Orientation Not on file Plan of Treatment Health Maintenance Due Date Last Done Comments Colorectal Cancer Screening Colonoscopy (10 Years) 1974 Annual Physical 1977 Hepatitis C 1992 DTaP, Tdap and Td Vaccines ( 1 - Tdap) 1993 Hepatitis B Vaccines (1 of 3 - 19+ 3-dose series) 1993 COVID-19 Vaccine (2023-2 5 season) 2024 Meningococcal B Vaccine Aged Out No l onger eligible based on patient's age to complete this topic Meningococcal Vaccine Aged Out No michael ramon eligible based on patient's age to complete this topic Pneumococcal Vaccine: Pediat rics (0 to 5 Years) and At-Risk Patients (6 to 49 Years) Aged Out No longer eligible b ased on patient's age to complete this topic RSV Immunizations Under 20 Months Aged Out No longer eligible based on patient's age to complete this topic Insurance [facility]
--- OUTSIDE RECORDS SUMMARY | 2024-09-21 16:33 | XMS_ITS | Encounter Summary ---
Author Organization [facility] Address [address] [place] [address] Phone Care Team Providers Care Food Safety Field Specialist Name Role Phone Brodie Fierro MD Primary Care Provider [phone] Tanmay Miller MD PhD Unavailable [phone] Encounter Details Date Type Department Care Team (Late st Contact Info) Description 07/26/2024 Results Follow-Up [facility] Gastroenterology [address] [facility] Advanced Medicine 12th [place] [address] [place] [address] Tanmay Miller MD PhD [address] [place] [address] Social History Tobacco Use Types Packs/Day Years [...] on file Legal Sex Male 10:18 AM STUCCO WORKER Gender Identity Not on file Sexual Orientation Straight 03/26/2020 2: 29 PM STUCCO WORKER documented as of this encounter Plan of Treatment Not on file documented as of this encounter Visit Diagnoses Not on filedocumented in this encounter Care Teams Food Safety Field Specialist Relationship Specialty Start Date End Date Brodie Fierro MD [address] [place] [address] PCP - General 07/07/16 Tanmay Miller MD PhD [address] [place] [address] Referring Physician Gastroenterology 05/06/21 documented as of this encounter
== END 2024-09-21 12:35 | disposition home or self-care (01) ==
PROVIDERS: PCP Nurse Practitioner Family; Visit Provider Urology
DX: N20.0 Calculus of kidney (principal)
CPT/HCPCS: 74176

== ENCOUNTER 2024-09-22 16:09 | Emergency (ER) | payer OTHER, SELFPAY ==
[2024-09-22] VITALS (9 sets, daily range): BP systolic 123–148; BP diastolic 80–91; PULSE 78–90; RESP 11–25; TEMP 36.9; O2SAT 96–100
--- NOTE | ~2024-09-22 | XR_ITS ---
EXAMINATION: XR chest 2V Exam Date/Time: 09/22/2024 18:45 CDT HISTORY: leukocytosis, fevers, myaglias Comparison: 08/16/2014. RESULT: Lines, tubes, and devices: None. Lungs and pleura: Clear. Cardiomediastinal silhouette: Stable. Other: No acute osseous or upper abdominal finding. IMPRESSION: No acute cardiopulmonary process. Reviewed, dictated and finalized at location K.
--- OUTSIDE RECORDS SUMMARY | 2024-09-22 16:10 | XMS_ITS | Clinical Summary ---
Author Organization [facility] Address [address] [place] [address] Care Team Providers Care Pick Up Man Name Role Phone Brodie Fierro MD Primary Care Provider [phone] Tanmay Miller MD PhD Unavailable [phone] Allergies No known active allergies Medications INFLIXIMAB (REMICADE IV)Indications:l ast 05/18/2021. For crohns Infuse into a venous catheter One infusion every 4 weeks Active lgqupliq-iynr-XI -calcium-mins 27 mg iron-400 mcg tabletIndication s:Vitamin [...] 04/22 Assessment & Plan (05/10/2023 5:45 PM WHEAT GROWER): The patient's B12 was adequate on his current level of supplementation when last checked. We would like him to continue this for the foreseeable future Major depressive disorder, recurrent episode, mo derate 03/10/2023 Anal polyp 06/03/2021 Overview (06/03/2021): Added automatically from request for surgery [id number] Assessment & Plan (05/10/2023 5:44 PM WHEAT GROWER): Happily the patient is not having any trouble since the excision in 2021. If these return, we will try to get him established with a new Colorectal surgeon. High risk medications (not anticoagulants) long- term use 10/16/2020 Assessment & Plan (05/09/2024 5:38 PM WHEAT GROWER): He should continue close follow-up with his care team and stay up-to-date with his vaccinations. He plans to get Shingrix once he turns 49 but was offered the option of having it sooner with his infusion if desired as he is eligible before the age of 49 based on his immunosuppression Assessment & Plan (05/10/2023 5:44 PM WHEAT GROWER): Based on the patient's immunosuppression, he is eligible for Shingrix and Prevnar 20 Recurrent kidney stones 2019 Assessment & Plan (05/09/2024 5:37 PM WHEAT GROWER): Unfortunately patient is not a huge fan [...] 10/09/2019 Assessment & Plan (05/26/2020 10:36 AM WHEAT GROWER): Patient with hx of mild OUD, uses opioids when he has pain from kidney stones and this triggers cravings for him. Sometimes he uses these prescription opioids to feel good but is now holding onto his prescriptions and locking them up. He denies getting opioids from other sources besides his rarely prescribed opioids. Assessment & Plan (03/27/2020 2:22 PM WHEAT GROWER): Patient with hx of mild OUD, uses [...] 08/08/2018 Assessment & Plan (06/12/2022 7:47 AM WHEAT GROWER): Patient meets criteria for ALAN, continue Cymbalta, continue Buspar. Assessment & Plan (12/10/2021 4:19 PM CDT): Patient meets criteria for ALAN, continue Cymbalta, continue Buspar. Assessment & Plan (05/13/2021 1:29 PM WHEAT GROWER): Patient meets criteria for ALAN, continue Cymbalta, continue Buspar. Assessment & Plan (02/03/2021 4:53 PM CDT): Patient meets criteria for ALAN, continue Cymbalta, continue Buspar. Assessment & Plan (05/26/2020 10:36 AM WHEAT GROWER): Patient meets criteria for ALAN, continue Cymbalta, continue Buspar. Start therapy. Assessment & Plan (03/27/2020 2:21 PM WHEAT GROWER): Patient meets criteria for ALAN, continue Cymbalta, [...] Buspar. Assessment & Plan (04/02/2019 10:28 AM WHEAT GROWER): Patient meets criteria for ALAN, continue Cymbalta. [...] 08/08/2018 Assessment & Plan (06/12/2022 7:47 AM WHEAT GROWER): 46 yo M with h/o MDD, ALAN, [...] months Assessment & Plan (05/13/2021 1:28 PM WHEAT GROWER): 45 yo M with h/o MDD, ALAN, [...] months Assessment & Plan (05/26/2020 10:36 AM WHEAT GROWER): 44 yo M with h/o MDD, ALAN, [...] weeks Assessment & Plan (03/27/2020 2:22 PM WHEAT GROWER): 44 yo M with h/o MDD, ALAN, [...] weeks Assessment & Plan (04/02/2019 10:57 AM WHEAT GROWER): 43 yo M with h/o MDD, ALAN, [...] consider starting therapy. You could go to [facility] for therapy, or [facility]. [facility] takes therapy patients as well. You could also go on [employer] or [facility] to find a therapist who takes your [...] (07/20/2018): Added automatically from request for surgery [id number] Assessment & Plan (05/09/2024 5:34 PM WHEAT GROWER): Happily the patient's disease activity appears to [...] infusion. Assessment & Plan (05/10/2023 5:43 PM WHEAT GROWER): Though the patient does not have 10 [...] Team Description 09/12/2024 1:00 PM CDT Infusion [facility] Infusion Therapy [address] [place] [address] [place] [address] Crohn's disease of both small and large intestine with fistula (HCC) (Primary Dx) 08/22/2024 Orders Only [facility] Gastroenterology [address] [place] [address] [place] [address] [place] [address] Candie Brooks RN 08/19/2024 Orders Only [facility] Department of Psychiatry [address] [facility] [address] [place] [address] Mary Anne Gonzalez PA 08/16/2024 Results Follow-Up [facility] Gastroenterology [address] [place] [address] [place] [address] [place] [address] Tanmay Miller MD PhD 08/16/2024 Results Follow-Up [facility] Gastroenterology [address] [place] [address] [place] [address] [place] [address] Tanmay Miller MD PhD 08/15/2024 2:15 PM CDT Lab [facility] Endocrinology Metabolism and Lipid [address] [place] [address] [place] [address] Crohn's disease of both small and large intestine with fistula (HCC) [K50.813] (Primary Dx) 08/15/2024 1:30 PM CDT Infusion [facility] Infusion Therapy [facility] [address] [place] [address] [place] [address] Crohn's disease of both small and large intestine with fistula (HCC) (Primary Dx) 08/15/2024 1:23 PM CDT - 08/15/2024 11:59 PM CDT Hospital Encounter [facility] [address] [place] [address] Crohn's disease of both small and large intestine with fistula (HCC) Discharge Disposition: Discharge to home or self care 08/14/2024 11:00 AM CDT Office Visit [facility] Department of Psychiatry [address] [facility] [address] [place] [address] Mary Anne Gonzalez PA ALAN (generalized anxiety disorder) (Primary Dx); MDD (major depressive disorder), recurrent, in partial remission 07/31/2024 Orders Only [facility] Gastroenterology [address] [facility] 12th [place] [address] [place] [address] Candie Brooks RN 07/26/2024 Results Follow-Up [facility] Gastroenterology [address] [place] [address] [place] [address] [place] [address] Tanmay Miller MD PhD 07/25/2024 Documentation [facility] Gastroenterology [address] [place] [address] [place] [address] [place] [address] Candie Brooks RN C. diff + 07/18/2024 1:30 PM WHEAT GROWER Infusion [facility] Infusion Therapy [address] [place] [address] 5th [place] [address] [place] [address] Crohn's disease of both small and large intestine with fistula (HCC) (Primary Dx) 07/17/2024 Telephone [facility] Psychiatry [address] [place] [address] Nadya Norton 07/09/2024 Documentation [facility] Gastroenterology [address] [place] [address] [place] [address] [place] [address] Candie Brooks, SRAVANI Symptoms/recommenda tions 07/09/2024 Orders Only [facility] Gastroenterology [address] [place] [address] [place] [address] [place] [address] Candie Brooks, SRAVANI from Last 3 Months [...] on file Legal Sex Male 10:18 AM WHEAT GROWER Gender Identity Not on file Sexual Orientation Straight 03/26/2020 2: 29 PM WHEAT GROWER Obstetrics History Last Filed Vital Signs Vital Sign Reading Time Taken Comments Blood Pressure 155/96 09/12/2024 1:00 PM CDT Pulse 86 09/12/2024 1:00 PM CDT Temperature 36.8 C (98.3 F) 05/09/2024 1:16 PM WHEAT GROWER Respiratory Rate 16 09/12/2024 1:00 PM CDT Oxygen Saturation 98% 02/26/2024 1:25 PM CDT Inhaled Oxygen Concentration - - Weight 84.8 kg (187 lb) 05/09/2024 1:16 PM WHEAT GROWER Height 188 cm (6' 2 ) 02/26/2024 [...] CALPROTECTIN, FECAL Routine 07/17/2024 6 :42 AM WHEAT GROWER Crohn's disease of both small and large intestine with fistula (HCC) Abdominal pain Change in bowel habits Diarrhea, unspecified type Nausea and vomiting, unspecified vomiting type CLOSTRIDIUM DIFFICILE TOXIN B, QUALITATIVE, REAL-TIME PCR Routine 07/17/2024 6:42 AM WHEAT GROWER CLOSTRIDIUM DIFFICILE TOXIN/GDH WITH REFLEX TO PCR Routine 07/17/2024 6:42 AM WHEAT GROWER Crohn's disease of both small and large intestine with fistula (HCC) Abdominal pain Change in bowel habits Diarrhea, unspecified type Nausea and vomiting, unspecified vomiting type COLONOSCOPY 02/26/2024 12:21 PM CDT from Last 3 Months or Most Recently Relevant to Health Maintenance Results * T-SPOT.TB Blood (08/15/2024 1:23 PM CDT) [facility] T-SPOT.TB Negative SeeBelow Comment: Normal Value: [...] test. T-SPOT.TB Panel A Spot Count 0 [facility] T-SPOT.TB Panel B Spot Count 1 [facility] T-SPOT.TB Negative Control Passed [facility] T-SPOT.TB Positive Control Passed [facility] Comment: Test Performed at: [facility] [address] [place] [address] SILVIA ZAPIEN,PHD Blood 08/15/2024 1:23 PM CDT 08/15/2024 5:17 PM CDT Narrative [facility] - 08/17/2024 11:52 AM CDT 2 small tubes sent Tanmay Miller MD PhD LAB MICROBIOLOGY - GENERA L ORDERABLES Final Result Performing Organization Address City/[facility] Co de Phone Number [facility] [place] [address] * Hepatitis B core antibody, total Blood (08/15/2024 1:23 PM CDT) Hep B core IgG/IgM Nonreactive Nonreactive Blood 08/15/2024 1:23 PM CDT 08/15/2024 4:31 PM CDT Tanmay Miller MD PhD LAB MICROBIOLOGY - GENERA L ORDERABLES Final Result Performing Organization Address [facility] [place] [address] * Hepatitis B surface antibody (immune status) [...] L ORDERABLES Final Result Performing Organization Address [facility] [place] [address] * Hepatitis B Surface Antigen Blood (08/15/2024 1:23 PM CDT) HepBsAg Nonreactive Nonreactive Blood 08/15/2024 1:23 PM CDT 08/15/2024 4:31 PM CDT us Tanmay Miller MD PhD LAB MICROBIOLOGY - GENERA L ORDERABLES Final Result ELIZ CL[facility] Department [place] [address] * CBC without differential (08/15/2024 1:23 PM [...] PM CDT 08/15/2024 2:04 PM CDT Narrative [facility] - 08/15/2024 2:25 PM CDT Draw labs every 8 weeks prior maintenance doses Draw labs every 2 weeks prior to the induction doses us Tanmay Miller MD PhD LAB BLOOD ORDERABLES Margaret l Result [facility] * CRP (acute phase) (08/15/2024 1:23 PM CDT) C-Reactive Protein, Acute <3.0 <5.0 mg/L [facility] Blood 08/15/2024 1:23 PM CDT 08/15/2024 2:04 PM CDT Narrative [facility] - 08/15/2024 2:52 PM CDT Draw labs every 8 weeks prior maintenance doses Draw labs every 2 weeks prior to the induction doses us Tanmay Miller MD PhD LAB BLOOD ORDERABLES Margaret christine Result [facility] [...] PM CDT 08/15/2024 2:04 PM CDT Narrative [facility] - 08/15/2024 3:13 PM CDT Specimen Hemolyzed Draw labs every 8 weeks prior maintenance doses Draw labs every 2 weeks prior to the induction doses Tanmay Miller MD PhD LAB BLOOD ORDERABLES Margaret l Result Performing Organization Address City/[facility]/ZIP Co de Phone Number [facility] * (ABNORMAL) Clostridium difficile Toxin B, Qualitative, Real-Time PCR (07/17/2024 6:42 AM WHEAT GROWER) C. difficile toxin DETECTED( A) NOT DETECTED [facility] Comment: The stool sample is POSITIVE for [...] been established. This assay was performed by [employer](R) PCR. The performance characteristics of this assay have been determined by [facility]. Performance characteristics refer to the analytical performance of the test. For additional information, please refer to http://education.[employer]/faq/MWY609 (This link is being provided for informational/educational purposes only.) 07/17/2024 6:42 AM WHEAT GROWER 07/18/2024 6:34 AM WHEAT GROWER Narrative [facility] - 07/25/2024 2:08 AM WHEAT GROWER FASTING:NO FASTING: NO Tanmay Miller MD PhD LAB MICROBIOLOGY - GENERA L ORDERABLES Final Result Performing Organization Address City/[facility]/ZIP Co de Phone Number [facility] [address] [place] [address] * Calprotectin, fecal (07/17/2024 6:42 AM WHEAT GROWER) Calprotectin, Stool 14 mcg/g [facility], Comment: Reference Range: <50 Normal [...] for borderline values. Stool 07/17/2024 6:42 AM WHEAT GROWER 07/18/2024 6:34 AM WHEAT GROWER Narrative [facility] - 07/25/2024 2:08 AM WHEAT GROWER FASTING:NO FASTING: NO Tanmay Miller MD PhD LAB BODY FLUIDS AND STOOL S ORDERABLES Final Result Performing Organization Address [facility] Co de Phone Number [employer], [address] [place] [address] * Clostridium difficile Toxin/GDH with Reflex to PCR Stool (07/17/2024 6:42 AM WHEAT GROWER) C difficile Toxins/GDH w/refl to PCR [facility] Comment: CLOSTRIDIUM DIFFICILE TOXIN/GDH W/REFL TO PCR Micro Number: [id number] Test Status: Final Specimen Source: Stool Specimen Quality: Adequate GDH Antigen: Detected Toxin A and B: Not Detected COMMENT: Indeterminate. Specimen forwarded for toxigenic C. difficile PCR testing. For additional information, please refer to http://education.[employer]/faq/URM408 (This link is being provided for informational/educational purposes only.) Stool 07/17/2024 6:42 AM WHEAT GROWER 07/18/2024 6:34 AM WHEAT GROWER Narrative [facility] - 07/25/2024 2:08 AM WHEAT GROWER FASTING:NO FASTING: NO Tanmay Miller MD PhD LAB MICROBIOLOGY - GENERA L ORDERABLES Final Result Performing Organization Address [facility]/ZIP Co de Phone Number [facility] [address] [address] [address] * Colonoscopy (02/26/2024 12:21 PM CDT) Anatomical Region Laterality Modality Other Narrative Procedure Note Tanmay Miller MD PhD - 02/26/2024 12:21 PM CDT ENDOSCOPY LAB Patient Name: Ector Phan Procedure Date: 02/26/2024 12:21 PM Date of : 1975 Admit Type: Outpatient Age: 48 Gender: Male Attending MD: Tanmay Miller MD,PHD Room: [facility] ENDOSCOPY ROOM 03 Note Status: Finalized Procedure: [...] The scope was passed under direct vision.The [id number] was introduced through the anusand advanced to [...] Health Maintenance Insurance [employer] [employer] EM[employer]YEES [employer] Advance Directives For more information, please contact: [phone] * Full Code (Latest Code Status on File) Date Activated Date Inactivated Comments 02/26/2024 11:02 AM 02/26/2024 6:14 PM * Full Code Date Activated Date Inactivated Comments 12/21/2020 11:41 AM 12/21/2020 6:32 PM Care Teams Pick Up Man Relationship Specialty Start Date End Date Brodie Fierro MD [address] [address] PCP - General 07/07/16 Tanmay Miller MD PhD [address] [address] Referring Physician Gastroenterology 05/06/21
--- OUTSIDE RECORDS SUMMARY | 2024-09-22 16:10 | XMS_ITS | Encounter Summary ---
Author Organization [facility] Address [address] [place] [address] Phone Care Team Providers Care Edger Machine Operator Name Role Phone Brodie Fierro MD Primary Care Provider [phone] Tanmay Miller MD PhD Unavailable [phone] Encounter Details Date Type Department Care Team (Late st Contact Info) Description 08/16/2024 Results Follow-Up [facility] Gastroenterology [address] [facility] Advanced Medicine 12th [place] [address] [place] [address] Tanmay Miller MD PhD [address] [place] [address] Social History Tobacco Use Types Packs/Day Years [...] on file Legal Sex Male 10:18 AM BUFFING WHEEL 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
--- OUTSIDE RECORDS SUMMARY | 2024-09-22 16:10 | XMS_ITS | Encounter Summary ---
Author Organization [facility] Address [address] [place] [address] Phone Care Team Providers Care Sed [employer] Teacher Name Role Phone Brodie Fierro MD Primary Care Provider [phone] Tanmay Miller MD PhD Unavailable [phone] Encounter Details Date Type Department Care Team (Late st Contact Info) Description 08/16/2024 Results Follow-Up [facility] Gastroenterology [address] [facility] Advanced Medicine 12th [place] [address] [place] [address] Tanmay Miller MD PhD [address] [place] [address] Social History Tobacco Use Types Packs/Day Years [...] on file Legal Sex Male 10:18 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
--- OUTSIDE RECORDS SUMMARY | 2024-09-22 16:10 | XMS_ITS | Encounter Summary ---
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 OPERATOR Gender Identity Not on file Sexual Orientation Straight 03/26/2020 2: 29 PM GUYLINE OPERATOR documented as of this encounter Plan of Treatment Not on file documented as of this encounter Procedures Procedure Name Priority Date/Time Associated Diagnosis Comments SCAN - LABS 05/09/2018 documented in this encounter Results * SCAN - LABS (05/09/2018) us Provider Scanning Final Result documented in this encounter Visit Diagnoses Not on filedocumented in this encounter Care Teams Operator Vacuum Relationship Specialty Start Date End Date Brodie Fierro MD [address] [place] [address] PCP - General 07/07/16 Belia Licona MD [address] [place], [place] [id number] Resident Psychiatry 06/05/20 11/16/20 Tanmay Miller MD PhD [address] [place] [address] Referring Physician Gastroenterology 05/06/21 documented as of this encounter
--- OUTSIDE RECORDS SUMMARY | 2024-09-22 16:10 | XMS_ITS | Referral Summary ---
Author Organization [facility] Address [address] [place] [address] Care Team Providers Care Mds Rn Name Role Phone Brodie Fierro MD Primary Care Provider [phone] Tanmay Miller MD PhD Unavailable [phone] Encounters Date Type Department Care Team Description 09/12/2024 1:00 PM CDT Infusion [facility] Infusion Therapy [facility] 5th [place] [address] [place] [address] Crohn's disease of both small and large intestine with fistula (HCC) (Primary Dx) 08/22/2024 Orders Only [facility] Gastroenterology [facility] 12th [place] [address] [place] [address] Candie Brooks RN 08/19/2024 Orders Only [facility] Department of Psychiatry [address] [facility] [address] [place] [address] Mary Anne Gonzalez PA 08/16/2024 Results Follow-Up [facility] Gastroenterology [address] [facility] 12th [place] [address] [place] [address] Tanmay Miller MD PhD 08/16/2024 Results Follow-Up [facility] Gastroenterology [address] [facility] 12th [place] [address] [place] [address] Tanmay Miller MD PhD 08/15/2024 1:23 PM CDT - 08/15/2024 11:59 PM CDT Hospital Encounter [facility] [address] [place] [address] Crohn's disease of both small and large intestine with fistula (HCC) Discharge Disposition: Discharge to home or self care 08/15/2024 2:15 PM CDT Lab [facility] Endocrinology Metabolism and Lipid [address] [place] [address] [place] [address] Crohn's disease of both small and large intestine with fistula (HCC) [K50.813] (Primary Dx) 08/15/2024 1:30 PM CDT Infusion [facility] Infusion Therapy [facility] [address] [place] [address] Crohn's disease of both small and large intestine with fistula (HCC) (Primary Dx) 08/14/2024 11:00 AM CDT Office Visit [facility] Department of Psychiatry [address] [facility] [address] [place] [address] Mary Anne Gonzalez PA ALAN (generalized anxiety disorder) (Primary Dx); MDD (major depressive disorder), recurrent, in partial remission 07/31/2024 Orders Only [facility] Gastroenterology [address] [place] [address] [place] [address] Candie Brooks RN 07/26/2024 Results Follow-Up [facility] Gastroenterology [address] [place] [address] Tanmay Miller MD PhD 07/25/2024 Documentation [facility] Gastroenterology [address] [place] [address] [place] [address] Candie Brooks, SRAVANI C. diff + 07/18/2024 1:30 PM IRON PILER Infusion [facility] Infusion Therapy [address] [place] [address] [place] [address] Crohn's disease of both small and large intestine with fistula (HCC) (Primary Dx) 07/17/2024 Telephone [facility] Psychiatry [address] [place] [address] Nadya Norton 07/09/2024 Documentation [facility] Gastroenterology [address] [facility] 12th [place] [address] [place] [address] Candie Brooks RN Symptoms/recommenda tions 07/09/2024 Orders Only [facility] Gastroenterology [facility] 12th [place] [address] [place] [address] Candie Brooks RN from Last 3 Months Allergies No known active allergies Medications INFLIXIMAB (REMICADE IV)Indications:l ast 05/18/2021. For crohns Infuse into a venous catheter One infusion every 4 weeks Active sogcrrpn-rtwe-HU -calcium-mins 27 mg iron-400 mcg tabletIndication s:Vitamin [...] 04/22 Assessment & Plan (05/10/2023 5:45 PM IRON PILER): The patient's B12 was adequate on his current level of supplementation when last checked. We would like him to continue this for the foreseeable future Major depressive disorder, recurrent episode, mo derate 03/10/2023 Anal polyp 06/03/2021 Overview (06/03/2021): Added automatically from request for surgery [id number] Assessment & Plan (05/10/2023 5:44 PM IRON PILER): Happily the patient is not having any trouble since the excision in 2021. If these return, we will try to get him established with a new Colorectal surgeon. High risk medications (not anticoagulants) long- term use 10/16/2020 Assessment & Plan (05/09/2024 5:38 PM IRON PILER): He should continue close follow-up with his care team and stay up-to-date with his vaccinations. He plans to get Shingrix once he turns 49 but was offered the option of having it sooner with his infusion if desired as he is eligible before the age of 49 based on his immunosuppression Assessment & Plan (05/10/2023 5:44 PM IRON PILER): Based on the patient's immunosuppression, he is eligible for Shingrix and Prevnar 20 Recurrent kidney stones 2019 Assessment & Plan (05/09/2024 5:37 PM IRON PILER): Unfortunately patient is not a huge fan [...] 10/09/2019 Assessment & Plan (05/26/2020 10:36 AM IRON PILER): Patient with hx of mild OUD, uses opioids when he has pain from kidney stones and this triggers cravings for him. Sometimes he uses these prescription opioids to feel good but is now holding onto his prescriptions and locking them up. He denies getting opioids from other sources besides his rarely prescribed opioids. Assessment & Plan (03/27/2020 2:22 PM IRON PILER): Patient with hx of mild OUD, uses [...] 08/08/2018 Assessment & Plan (06/12/2022 7:47 AM IRON PILER): Patient meets criteria for ALAN, continue Cymbalta, continue Buspar. Assessment & Plan (12/10/2021 4:19 PM CDT): Patient meets criteria for ALAN, continue Cymbalta, continue Buspar. Assessment & Plan (05/13/2021 1:29 PM IRON PILER): Patient meets criteria for ALAN, continue Cymbalta, continue Buspar. Assessment & Plan (02/03/2021 4:53 PM CDT): Patient meets criteria for ALAN, continue Cymbalta, continue Buspar. Assessment & Plan (05/26/2020 10:36 AM IRON PILER): Patient meets criteria for ALAN, continue Cymbalta, continue Buspar. Start therapy. Assessment & Plan (03/27/2020 2:21 PM IRON PILER): Patient meets criteria for ALAN, continue Cymbalta, [...] Buspar. Assessment & Plan (04/02/2019 10:28 AM IRON PILER): Patient meets criteria for ALAN, continue Cymbalta. [...] 08/08/2018 Assessment & Plan (06/12/2022 7:47 AM IRON PILER): 46 yo M with h/o MDD, ALAN, [...] months Assessment & Plan (05/13/2021 1:28 PM IRON PILER): 45 yo M with h/o MDD, ALAN, [...] months Assessment & Plan (05/26/2020 10:36 AM IRON PILER): 44 yo M with h/o MDD, ALAN, [...] weeks Assessment & Plan (03/27/2020 2:22 PM IRON PILER): 44 yo M with h/o MDD, ALAN, [...] weeks Assessment & Plan (04/02/2019 10:57 AM IRON PILER): 43 yo M with h/o MDD, ALAN, [...] consider starting therapy. You could go to [facility] for therapy, or [facility]. [facility] takes therapy patients as well. You could also go on [employer] or [employer] to find a therapist who takes your [...] (07/20/2018): Added automatically from request for surgery [id number] Assessment & Plan (05/09/2024 5:34 PM IRON PILER): Happily the patient's disease activity appears to [...] infusion. Assessment & Plan (05/10/2023 5:43 PM IRON PILER): Though the patient does not have 10 [...] on file Legal Sex Male 10:18 AM IRON PILER Gender Identity Not on file Sexual Orientation Straight 03/26/2020 2: 29 PM IRON PILER Last Filed Vital Signs Vital Sign Reading Time Taken Comments Blood Pressure 155/96 09/12/2024 1:00 PM CDT Pulse 86 09/12/2024 1:00 PM CDT Temperature 36.8 C (98.3 F) 05/09/2024 1:16 PM IRON PILER Respiratory Rate 16 09/12/2024 1:00 PM CDT Oxygen Saturation 98% 02/26/2024 1:25 PM CDT Inhaled Oxygen Concentration - - Weight 84.8 kg (187 lb) 05/09/2024 1:16 PM IRON PILER Height 188 cm (6' 2 ) 02/26/2024 [...] CALPROTECTIN, FECAL Routine 07/17/2024 6 :42 AM IRON PILER Crohn's disease of both small and large intestine with fistula (HCC) Abdominal pain Change in bowel habits Diarrhea, unspecified type Nausea and vomiting, unspecified vomiting type CLOSTRIDIUM DIFFICILE TOXIN B, QUALITATIVE, REAL-TIME PCR Routine 07/17/2024 6:42 AM IRON PILER CLOSTRIDIUM DIFFICILE TOXIN/GDH WITH REFLEX TO PCR Routine 07/17/2024 6:42 AM IRON PILER Crohn's disease of both small and large intestine with fistula (HCC) Abdominal pain Change in bowel habits Diarrhea, unspecified type Nausea and vomiting, unspecified vomiting type COLONOSCOPY 02/26/2024 12:21 PM CDT from Last 3 Months or Most Recently Relevant to Health Maintenance Results * T-SPOT.TB Blood (08/15/2024 1:23 PM CDT) [facility] T-SPOT.TB Negative SeeBelow Comment: Normal Value: Negative [...] test. T-SPOT.TB Panel A Spot Count 0 [facility] T-SPOT.TB Panel B Spot Count 1 [facility] T-SPOT.TB Negative Control Passed [facility] T-SPOT.TB Positive Control Passed [facility] Comment: Test Performed at: [facility] [employer] [address] [place] [address] SILVIA ZAPIEN,PHD Blood 08/15/2024 1:23 PM CDT 08/15/2024 5:17 PM CDT Narrative [facility] - 08/17/2024 11:52 AM CDT 2 small tubes sent Tanmay Miller MD PhD LAB MICROBIOLOGY - [employer] L ORDERABLES Final Result [facility] Department [place] [address] * Hepatitis B core antibody, total Blood (08/15/2024 1:23 PM CDT) [facility] Hep B core IgG/IgM Nonreactive Nonreactive Blood 08/15/2024 1:23 PM CDT 08/15/2024 4:31 PM CDT Tanmay Miller MD PhD LAB MICROBIOLOGY - GENERA L ORDERABLES Final Result [facility] Department [place] [address] * Hepatitis B surface antibody (immune status) Blood (08/15/2024 1:23 PM CDT) [facility] HBsAb (immune status) Nonreactive Comment:This result is consi stent with a lack of immunity to Hepatitis B Virus when used in the setting of routine screening. Current interpretative data was last revised on 22 Blood 08/15/2024 1:23 PM CDT 08/15/2024 4:31 PM CDT Tanmay Miller MD PhD LAB MICROBIOLOGY - GENERA L ORDERABLES Final Result Performing Organization Address City/[facility] Co de Phone Number [facility] [place] [address] * Hepatitis B Surface Antigen Blood (08/15/2024 1:23 PM CDT) Pathologist [facility] HepBsAg Nonreactive Nonreactive Blood 08/15/2024 1:23 PM CDT 08/15/2024 4:31 PM CDT Tanmay Miller MD PhD LAB MICROBIOLOGY - GENERA L ORDERABLES Final Result Performing Organization Address [facility] de Phone Number [facility] [place] [address] * CBC without differential (08/15/2024 1:23 PM CDT) Pathologist [facility] White Blood Count 6.4 3.6 - 11.2 [...] PM CDT 08/15/2024 2:04 PM CDT Narrative [facility] CORE [facility] - 08/15/2024 2:25 PM CDT Draw labs every 8 weeks prior maintenance doses Draw labs every 2 weeks prior to the induction doses Tanmay Miller MD PhD LAB BLOOD ORDERABLES Margaret l Result Performing Organization Address City/[facility] Co de Phone Number [facility] * CRP (acute phase) (08/15/2024 1:23 PM CDT) [facility] C-Reactive Protein, Acute <3.0 <5.0 mg/L [facility] Blood 08/15/2024 1:23 PM CDT 08/15/2024 2:04 PM CDT Narrative [facility] - 08/15/2024 2:52 PM CDT Draw labs every 8 weeks prior maintenance doses Draw labs every 2 weeks prior to the induction doses Tanmay Miller MD PhD LAB BLOOD ORDERABLES Margaret l Result Performing Organization Address [facility] de Phone Number [facility] * (ABNORMAL) Comprehensive metabolic panel (08/15/2024 1:23 PM CDT) [facility] Total Protein 8.1 6.1 - 8.4 g/dL [...] PM CDT 08/15/2024 2:04 PM CDT Narrative [facility] - 08/15/2024 3:13 PM CDT Specimen Hemolyzed Draw labs every 8 weeks prior maintenance doses Draw labs every 2 weeks prior to the induction doses Tanmay Miller MD PhD LAB BLOOD ORDERABLES Margaret Result [facility]ORE [facility] * (ABNORMAL) Clostridium difficile Toxin B, Qualitative, Real-Time PCR (07/17/2024 6:42 AM IRON PILER) Pathologist [facility] C. difficile toxin DETECTED( A) NOT DETECTED [facility] Comment: The stool sample is POSITIVE [...] been established. This assay was performed by [employer] GeneXpert(R) PCR. The performance characteristics of this assay have been determined by [facility]. Performance characteristics refer to the analytical performance of the test. For additional information, please refer to http://education.[employer]/faq/HQP709 (This link is being provided for informational/educational purposes only.) 07/17/2024 6:42 AM IRON PILER 07/18/2024 6:34 AM IRON PILER Narrative [facility] - 07/25/2024 2:08 AM IRON PILER FASTING:NO FASTING: NO Tanmay Miller MD PhD LAB MICROBIOLOGY - GENERA L ORDERABLES Final Result Performing Organization Address [facility] Co de Phone Number [facility] [address] [address] [address] * Calprotectin, fecal (07/17/2024 6:42 AM IRON PILER) Calprotectin, Stool 14 mcg/g [facility], Comment: Reference Range: <50 Normal 50-120 Borderline >120 Elevated LIQUID STOOL. Calprotectin in Crohn's disease and ulcerative colitis can be five to several thousand times above the reference population (50 mcg/g or less). Levels are usually 50 mcg/g or less in healthy patients and with irritable bowel syndrome. Repeat testing in 4-6 weeks is suggested for borderline values. Stool 07/17/2024 6:42 AM IRON PILER 07/18/2024 6:34 AM IRON PILER Narrative [facility] - 07/25/2024 2:08 AM IRON PILER FASTING:NO FASTING: NO Tanmay Miller MD PhD LAB BODY FLUIDS AND STOOL S ORDERABLES Final Result Performing Organization Address [facility] de Phone Number [facility], [address] [place] [address] * Clostridium difficile Toxin/GDH with Reflex to PCR Stool (07/17/2024 6:42 AM IRON PILER) C difficile Toxins/GDH w/refl to PCR [facility] Comment: CLOSTRIDIUM DIFFICILE TOXIN/GDH W/REFL TO PCR Micro Number: [id number] Test Status: Final Specimen Source: Stool Specimen Quality: Adequate GDH Antigen: Detected Toxin A and B: Not Detected COMMENT: Indeterminate. Specimen forwarded for toxigenic C. difficile PCR testing. For additional information, please refer to http://education.[employer]/faq/DRV641 (This link is being provided for informational/educational purposes only.) Stool 07/17/2024 6:42 AM IRON PILER 07/18/2024 6:34 AM IRON PILER Narrative [facility] - 07/25/2024 2:08 AM IRON PILER FASTING:NO FASTING: NO Tanmay Miller MD PhD LAB MICROBIOLOGY - GENERA L ORDERABLES Final Result [facility] [address] [place] [address] * Colonoscopy (02/26/2024 12:21 PM CDT) Anatomical Region Laterality Modality Other Narrative Procedure Note Tanmay Miller MD PhD - 02/26/2024 12:21 PM CDT ENDOSCOPY LAB Patient Name: Ector Phan Procedure Date: 02/26/2024 12:21 PM Date of : 1975 Admit Type: Outpatient Age: 48 Gender: Male Attending MD: Tanmay Miller MD,PHD Room: [facility] ENDOSCOPY ROOM 03 Note Status: Finalized [...] The scope was passed under direct vision.The [id number] was introduced through the anusand advanced to [...] Health Maintenance Insurance [employer]YEES [employer] Advance Directives For more information, please contact: [phone] * Full Code (Latest Code Status on File) Date Activated Date Inactivated Comments 02/26/2024 11:02 AM 02/26/2024 6:14 PM * Full Code Date Activated Date Inactivated Comments 12/21/2020 11:41 AM 12/21/2020 6:32 PM Care Teams Mds Rn Relationship Specialty Start Date End Date Brodie Fierro MD [address] [place] [address] PCP - General 07/07/16 Tanmay Miller MD PhD [address] [address] Referring Physician Gastroenterology 05/06/21
--- OUTSIDE RECORDS SUMMARY | 2024-09-22 16:10 | XMS_ITS | Clinical Summary ---
Author Organization [facility] Address [address] [place] [address] Care Team Providers Care Federal District Law Clerk Name Role Phone Unavailable Primary Care Provider [...] patient's age to complete this topic Insurance [facility] [place] [address]
--- OUTSIDE RECORDS SUMMARY | 2024-09-22 16:10 | XMS_ITS | Encounter Summary ---
Author Organization [facility] Address [address] [place] [address] Phone Care Team Providers Care Guide Dog Mobility Instructor Name Role Phone Brodie Fierro MD Primary Care Provider [phone] Tanmay Miller MD PhD Unavailable [phone] Encounter Details Date Type Department Care Team (Late st Contact Info) Description 07/26/2024 Results Follow-Up [facility] Gastroenterology [address] [facility] Advanced Medicine 12th [place] [address] [place] [address] Tanmay Miller MD PhD [address] [place] [address] Social History Tobacco Use Types Packs/Day Years [...] file 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
[2024-09-22 16:29] LABS: Add Urine Microscopic? YES; Appearance Urine Clear (Clear); Bacteria Urine None Seen /hpf; Bilirubin Urine Negative (Negative); Blood Urine Negative (Negative); Color Urine Yellow (Yellow); Glucose Urine UA Negative (Negative); Ketones Urine Negative (Negative); Leukocyte Esterase Ur Negative LEU/UL (Negative); Nitrate Urine Negative (Negative); Non Pathogenic Casts 0-2; Protein Urine Trace mg/dL (Negative); RBC Urine 0-2 /hpf (0-2); Squamous Epithelial Cell Urine None Seen /hpf (Few); Urobilinogen Urine 0.2 mg/dL (<2.0); WBC Urine 0-5 /hpf (0-3)
[2024-09-22] MEDS: SODIUM CHLORIDE 0.9% IV 1,000 ML 999 ML IV CONT ×2 (16:44→18:15)
[2024-09-22 17:19] LABS: Basophils Absolute Auto 0.1 K/mm3 (0.0-0.1); Basophils Percent Auto 0.3 % (0.2-1.2); Eosinophils Absolute Auto 0.1 K/mm3 (0-0.3); Eosinophils Percent Auto 0.5 % (0-4.4); Hematocrit 35.7 % (42.0-52.0); Immature Granulocyte Absolute 0.11 K/mm3 (0.00-0.031); Immature Granulocyte Percent A 0.6 % (0-0.5); Lymphocytes Absolute Auto 0.91 K/mm3 (0.9-3.2); Mean Corpuscular HGB Conc 33.6 g/dl (32-36); Mean Corpuscular Hemoglobin 30.6 pg (26-34); Mean Corpuscular Volume 91.1 fl (80-100); Mean Platelet Volume 9.9 fl (7.4-10.4); Monocytes Absolute Auto 0.9 K/mm3 (0.1-0.6); Monocytes Percent Auto 4.9 % (2.6-8.5); Neutrophils Absolute Auto 16.2 K/mm3 (1.3-6.7); Neutrophils Percent Auto 88.7 % (45.5-73.1); Platelet Count Result 191 k/mm3 (150-375); Red Blood Count 3.92 M/mm3 (4.6-6.20); Red Cell Distribution Width 12.8 % (11.5-14.5); White Blood Count 18.3 K/mm3 (4.5-10.0)
[2024-09-22 17:30] LABS: Lactic Acid Reflex 1.3 mmol/L (0.7-2.0)
[2024-09-22 17:37] LABS: Alanine Aminotransferase 35 U/L (6-50); Albumin Level 3.8 g/dL (3.5-5.1); Alkaline Phosphatase 48 U/L (38-126); Anion Gap 9 mmol/L (4-12); Aspartate Amino Transferase 28 U/L (17-59); Bilirubin,Total 1.5 mg/dL (0.2-1.3); Blood Urea Nitrogen 14 mg/dL (9-20); Calcium 8.4 mg/dL (8.4-10.2); Carbon Dioxide 23 mmol/L (22-30); Chloride 105 mmol/L (98-107); Estimated CRCL calculation 69 ml/min; Estimated Glomerular Filt Rate 56; Glucose 106 mg/dL (65-110); Potassium 2.8 mmol/L (3.4-5.0); Sodium 137 mmol/L (137-145)
--- OUTSIDE RECORDS SUMMARY | 2024-09-22 17:37 | XMS_ITS | Clinical Summary ---
Author Organization [facility] Address [address] [place] [address] Care Team Providers Care Hotel Or Motel Room Service Supervisor Name Role Phone Unavailable Primary Care Provider [...] patient's age to complete this topic Insurance [facility]
--- OUTSIDE RECORDS SUMMARY | 2024-09-22 17:37 | XMS_ITS | Encounter Summary ---
Author Organization [facility] Address [address] [place] [address] Phone Care Team Providers Care Landscape Account Manager Name Role Phone Brodie Fierro MD Primary Care Provider [phone] Tanmay Miller MD PhD Unavailable [phone] Encounter Details Date Type Department Care Team (Late st Contact Info) Description 08/16/2024 Results Follow-Up [facility] Gastroenterology [address] [facility] Advanced Medicine 12th [place] [address] [place] [address] Tanmay Miller MD PhD [address] [place] [address] Social History Tobacco Use Types Packs/Day Years [...] on file Legal Sex Male 10:18 AM 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
--- OUTSIDE RECORDS SUMMARY | 2024-09-22 17:37 | XMS_ITS | Encounter Summary ---
Author Organization [facility] Address [address] [place] [address] Phone Care Team Providers Care Organic Preparation Analyst Name Role Phone Brodie Fierro MD Primary Care Provider [phone] Tanmay Miller MD PhD Unavailable [phone] Encounter Details Date Type Department Care Team (Late st Contact Info) Description 07/26/2024 Results Follow-Up [facility] Gastroenterology [address] [facility] Advanced Medicine 12th [place] [address] [place] [address] Tanmay Miller MD PhD [address] [place] [address] Social History Tobacco Use Types Packs/Day Years [...] on file Legal Sex Male 10:18 AM RELISH MAKER Gender Identity Not on file Sexual Orientation Straight 03/26/2020 2: 29 PM RELISH MAKER documented as of this encounter Plan of Treatment Not on file documented as of this encounter Visit Diagnoses Not on filedocumented in this encounter Care Teams Organic Preparation Analyst Relationship Specialty Start Date End Date Brodie Fierro MD [address] [place] [address] PCP - General 07/07/16 Tanmay Miller MD PhD [address] [place] [address] Referring Physician Gastroenterology 05/06/21 documented as of this encounter
--- OUTSIDE RECORDS SUMMARY | 2024-09-22 17:37 | XMS_ITS | Encounter Summary ---
Author Organization [facility] Address [address] [place] [address] Phone Care Team Providers Care Dance Costume Designer Name Role Phone Brodie Fierro MD Primary Care Provider [phone] Tanmay Miller MD PhD Unavailable [phone] Encounter Details Date Type Department Care Team (Late st Contact Info) Description 08/16/2024 Results Follow-Up [facility] Gastroenterology [address] 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
--- OUTSIDE RECORDS SUMMARY | 2024-09-22 17:37 | XMS_ITS | Clinical Summary ---
Author Organization [facility] Address [address] [place] [address] Care Team Providers Care [place] Name Role Phone Brodie Fierro MD Primary Care Provider [phone] Tanmay Miller MD PhD Unavailable [phone] Allergies No known active allergies Medications INFLIXIMAB (REMICADE IV)Indications:l ast 05/18/2021. For crohns Infuse into a venous catheter One infusion every 4 weeks Active edurauml-qlhf-DZ -calcium-mins 27 mg iron-400 mcg tabletIndication s:Vitamin [...] 04/22 Assessment & Plan (05/10/2023 5:45 PM DISABILITY AIDE): The patient's B12 was adequate on his current level of supplementation when last checked. We would like him to continue this for the foreseeable future Major depressive disorder, recurrent episode, mo derate 03/10/2023 Anal polyp 06/03/2021 Overview (06/03/2021): Added automatically from request for surgery [id number] Assessment & Plan (05/10/2023 5:44 PM DISABILITY AIDE): Happily the patient is not having any trouble since the excision in 2021. If these return, we will try to get him established with a new Colorectal surgeon. High risk medications (not anticoagulants) long- term use 10/16/2020 Assessment & Plan (05/09/2024 5:38 PM DISABILITY AIDE): He should continue close follow-up with his care team and stay up-to-date with his vaccinations. He plans to get Shingrix once he turns 49 but was offered the option of having it sooner with his infusion if desired as he is eligible before the age of 49 based on his immunosuppression Assessment & Plan (05/10/2023 5:44 PM DISABILITY AIDE): Based on the patient's immunosuppression, he is eligible for Shingrix and Prevnar 20 Recurrent kidney stones 2019 Assessment & Plan (05/09/2024 5:37 PM DISABILITY AIDE): Unfortunately patient is not a huge fan [...] 10/09/2019 Assessment & Plan (05/26/2020 10:36 AM DISABILITY AIDE): Patient with hx of mild OUD, uses opioids when he has pain from kidney stones and this triggers cravings for him. Sometimes he uses these prescription opioids to feel good but is now holding onto his prescriptions and locking them up. He denies getting opioids from other sources besides his rarely prescribed opioids. Assessment & Plan (03/27/2020 2:22 PM DISABILITY AIDE): Patient with hx of mild OUD, uses [...] 08/08/2018 Assessment & Plan (06/12/2022 7:47 AM DISABILITY AIDE): Patient meets criteria for ALAN, continue Cymbalta, continue Buspar. Assessment & Plan (12/10/2021 4:19 PM CDT): Patient meets criteria for ALAN, continue Cymbalta, continue Buspar. Assessment & Plan (05/13/2021 1:29 PM DISABILITY AIDE): Patient meets criteria for ALAN, continue Cymbalta, continue Buspar. Assessment & Plan (02/03/2021 4:53 PM CDT): Patient meets criteria for ALAN, continue Cymbalta, continue Buspar. Assessment & Plan (05/26/2020 10:36 AM DISABILITY AIDE): Patient meets criteria for ALAN, continue Cymbalta, continue Buspar. Start therapy. Assessment & Plan (03/27/2020 2:21 PM DISABILITY AIDE): Patient meets criteria for ALAN, continue Cymbalta, [...] Buspar. Assessment & Plan (04/02/2019 10:28 AM DISABILITY AIDE): Patient meets criteria for ALAN, continue Cymbalta. [...] 08/08/2018 Assessment & Plan (06/12/2022 7:47 AM DISABILITY AIDE): 46 yo M with h/o MDD, ALAN, [...] months Assessment & Plan (05/13/2021 1:28 PM DISABILITY AIDE): 45 yo M with h/o MDD, ALAN, [...] months Assessment & Plan (05/26/2020 10:36 AM DISABILITY AIDE): 44 yo M with h/o MDD, ALAN, [...] weeks Assessment & Plan (03/27/2020 2:22 PM DISABILITY AIDE): 44 yo M with h/o MDD, ALAN, [...] weeks Assessment & Plan (04/02/2019 10:57 AM DISABILITY AIDE): 43 yo M with h/o MDD, ALAN, [...] consider starting therapy. You could go to [facility] for therapy, or [facility]. [facility] takes therapy patients as well. You could also go on [email or web address] or [employer] to find a therapist who takes your [...] (07/20/2018): Added automatically from request for surgery [id number] Assessment & Plan (05/09/2024 5:34 PM DISABILITY AIDE): Happily the patient's disease activity appears to [...] infusion. Assessment & Plan (05/10/2023 5:43 PM DISABILITY AIDE): Though the patient does not have 10 [...] Description 09/12/2024 1:00 PM CDT Infusion [facility] [address] [place] [address] [place] [address] Crohn's disease of both small and large intestine with fistula (HCC) (Primary Dx) 08/22/2024 Orders Only [facility] [address] [place] [address] [place] [address] [place] [address] Candie Brooks RN 08/19/2024 Orders Only [facility] Department of Psychiatry [address] [facility] [address] [place] [address] Mary Anne Gonzalez PA 08/16/2024 Results Follow-Up [facility] [address] [place] [address] [place] [address] [place] [address] Tanmay Miller MD PhD 08/16/2024 Results Follow-Up [facility] [address] [place] [address] [place] [address] [place] [address] Tanmay Miller MD PhD 08/15/2024 2:15 PM CDT Lab [facility] Metabolism [facility] Lipid [address] [place] [address] [place] [address] Crohn's disease of both small and large intestine with fistula (HCC) [K50.813] (Primary Dx) 08/15/2024 1:30 PM CDT Infusion [facility] [address] [place] [address] [place] [address] Crohn's disease of both small and large intestine with fistula (HCC) (Primary Dx) 08/15/2024 1:23 PM CDT - 08/15/2024 11:59 PM CDT Hospital Encounter [facility] [address] [place] [address] Crohn's disease of both small and large intestine with fistula (HCC) Discharge Disposition: Discharge to home or self care 08/14/2024 11:00 AM CDT Office Visit [facility] Department of Psychiatry [address] [facility] [address] [place] [address] Mary Anne Gonzalez PA ALAN (generalized anxiety disorder) (Primary Dx); MDD (major depressive disorder), recurrent, in partial remission 07/31/2024 Orders Only [facility] [address] [facility] 12[address] [place] [address] [place] [address] Candie Brooks RN 07/26/2024 Results Follow-Up [facility] [address] [place] [address] [place] [address] [place] [address] Tanmay Miller MD PhD 07/25/2024 Documentation [facility] [address] [place] [address] [place] [address] [place] [address] Candie Brooks RN C. diff + 07/18/2024 1:30 PM DISABILITY AIDE Infusion [facility] [address] [place] [address] 5th [place] [address] [place] [address] Crohn's disease of both small and large intestine with fistula (HCC) (Primary Dx) 07/17/2024 Telephone [facility] [address] [place] [address] Nadya Norton 07/09/2024 Documentation [facility] [address] [place] [address] [place] [address] [place] [address] Candie Brooks, SRAVANI Symptoms/recommenda tions 07/09/2024 Orders Only [facility] [address] [place] [address] [place] [address] [place] [address] Candie Brooks, SRAVANI from Last 3 Months [...] on file Legal Sex Male 10:18 AM DISABILITY AIDE Gender Identity Not on file Sexual Orientation Straight 03/26/2020 2: 29 PM DISABILITY AIDE Obstetrics History Last Filed Vital Signs Vital Sign Reading Time Taken Comments Blood Pressure 155/96 09/12/2024 1:00 PM CDT Pulse 86 09/12/2024 1:00 PM CDT Temperature 36.8 C (98.3 F) 05/09/2024 1:16 PM DISABILITY AIDE Respiratory Rate 16 09/12/2024 1:00 PM CDT Oxygen Saturation 98% 02/26/2024 1:25 PM CDT Inhaled Oxygen Concentration - - Weight 84.8 kg (187 lb) 05/09/2024 1:16 PM DISABILITY AIDE Height 188 cm (6' 2 ) 02/26/2024 [...] CALPROTECTIN, FECAL Routine 07/17/2024 6 :42 AM DISABILITY AIDE Crohn's disease of both small and large intestine with fistula (HCC) Abdominal pain Change in bowel habits Diarrhea, unspecified type Nausea and vomiting, unspecified vomiting type CLOSTRIDIUM DIFFICILE TOXIN B, QUALITATIVE, REAL-TIME PCR Routine 07/17/2024 6:42 AM DISABILITY AIDE CLOSTRIDIUM DIFFICILE TOXIN/GDH WITH REFLEX TO PCR Routine 07/17/2024 6:42 AM DISABILITY AIDE Crohn's disease of both small and large intestine with fistula (HCC) Abdominal pain Change in bowel habits Diarrhea, unspecified type Nausea and vomiting, unspecified vomiting type COLONOSCOPY 02/26/2024 12:21 PM CDT from Last 3 Months or Most Recently Relevant to Health Maintenance Results * T-SPOT.TB Blood (08/15/2024 1:23 PM CDT) [facility] T-SPOT.TB Negative SeeBelow Comment: Normal Value: [...] Panel A Spot Count 0 [facility] T-SPOT.TB Panel B Spot Count 1 [facility] T-SPOT.TB Negative Control Passed [facility] T-SPOT.TB Positive Control Passed [facility] Comment: Test Performed at: [facility] [address] [place] [address] SILVIA ZAPIEN,PHD Blood 08/15/2024 1:23 PM CDT 08/15/2024 5:17 PM CDT Narrative [facility] - 08/17/2024 11:52 AM CDT 2 small tubes sent Tanmya Miller MD PhD LAB MICROBIOLOGY - GENERA L ORDERABLES Final Result Performing Organization Address City/[facility] Co de Phone Number [facility] [place] [address] * Hepatitis B core antibody, total Blood (08/15/2024 1:23 PM CDT) Hep B core IgG/IgM Nonreactive Nonreactive Blood 08/15/2024 1:23 PM CDT 08/15/2024 4:31 PM CDT Tanmay Miller MD PhD LAB MICROBIOLOGY - GENERA L ORDERABLES Final Result Performing Organization Address [facility] [place] [address] * Hepatitis B surface antibody (immune status) [...] L ORDERABLES Final Result Performing Organization Address [facility] [place] [address] * Hepatitis B Surface Antigen Blood (08/15/2024 1:23 PM CDT) HepBsAg Nonreactive Nonreactive Blood 08/15/2024 1:23 PM CDT 08/15/2024 4:31 PM CDT us Tanmay Miller MD PhD LAB MICROBIOLOGY - GENERA L ORDERABLES Final Result [facility] [place] [address] * CBC without differential (08/15/2024 1:23 PM [...] PM CDT 08/15/2024 2:04 PM CDT Narrative [facility] - 08/15/2024 2:25 PM CDT Draw labs every 8 weeks prior maintenance doses Draw labs every 2 weeks prior to the induction doses us Tanmay Miller MD PhD LAB BLOOD ORDERABLES Margaret l Result [facility] * CRP (acute phase) (08/15/2024 1:23 PM CDT) C-Reactive Protein, Acute <3.0 <5.0 mg/L [facility] Blood 08/15/2024 1:23 PM CDT 08/15/2024 2:04 PM CDT Narrative [facility] - 08/15/2024 2:52 PM CDT Draw labs every 8 weeks prior maintenance doses Draw labs every 2 weeks prior to the induction doses us Tanmay Miller MD PhD LAB BLOOD ORDERABLES Margaret christine Result [facility] * [...] PM CDT 08/15/2024 2:04 PM CDT Narrative [facility] - 08/15/2024 3:13 PM CDT Specimen Hemolyzed Draw labs every 8 weeks prior maintenance doses Draw labs every 2 weeks prior to the induction doses Tanmay Miller MD PhD LAB BLOOD ORDERABLES Margaret l Result Performing Organization Address City/[facility]/ZIP Co de Phone Number [facility] * (ABNORMAL) Clostridium difficile Toxin B, Qualitative, Real-Time PCR (07/17/2024 6:42 AM DISABILITY AIDE) C. difficile toxin DETECTED( A) NOT DETECTED [facility] Comment: The stool sample is POSITIVE for [...] been established. This assay was performed by [employer]) PCR. The performance characteristics of this assay have been determined by [employer]. Performance characteristics refer to the analytical performance of the test. For additional information, please refer to http://education.3Scan/faq/YTC131 (This link is being provided for informational/educational purposes only.) 07/17/2024 6:42 AM DISABILITY AIDE 07/18/2024 6:34 AM DISABILITY AIDE Narrative [facility] - 07/25/2024 2:08 AM DISABILITY AIDE FASTING:NO FASTING: NO Tanmay Miller MD PhD LAB MICROBIOLOGY - GENERA L ORDERABLES Final Result Performing Organization Address City/[facility]/ZIP Co de Phone Number [facility] [address] [place] [address] * Calprotectin, fecal (07/17/2024 6:42 AM DISABILITY AIDE) Calprotectin, Stool 14 mcg/g [facility], Comment: Reference Range: <50 Normal 50-120 Borderline >120 Elevated LIQUID STOOL. Calprotectin in Crohn's disease and ulcerative colitis can be five to several thousand times above the reference population (50 mcg/g or less). Levels are usually 50 mcg/g or less in healthy patients and with irritable bowel syndrome. Repeat testing in 4-6 weeks is suggested for borderline values. Stool 07/17/2024 6:42 AM DISABILITY AIDE 07/18/2024 6:34 AM DISABILITY AIDE Narrative [facility] - 07/25/2024 2:08 AM DISABILITY AIDE FASTING:NO FASTING: NO Tanmay Miller MD PhD LAB BODY FLUIDS AND STOOL S ORDERABLES Final Result Performing Organization Address [facility] Co de Phone Number [employer], [address] [place] [address] * Clostridium difficile Toxin/GDH with Reflex to PCR Stool (07/17/2024 6:42 AM DISABILITY AIDE) C difficile Toxins/GDH w/refl to PCR [facility] Comment: CLOSTRIDIUM DIFFICILE TOXIN/GDH W/REFL TO PCR Micro Number: [id number] Test Status: Final Specimen Source: Stool Specimen Quality: Adequate GDH Antigen: Detected Toxin A and B: Not Detected COMMENT: Indeterminate. Specimen forwarded for toxigenic C. difficile PCR testing. For additional information, please refer to http://education.3Scan/faq/QOO632 (This link is being provided for informational/educational purposes only.) Stool 07/17/2024 6:42 AM DISABILITY AIDE 07/18/2024 6:34 AM DISABILITY AIDE Narrative [facility] - 07/25/2024 2:08 AM DISABILITY AIDE FASTING:NO FASTING: NO Tanmay Miller MD PhD LAB MICROBIOLOGY - GENERA L ORDERABLES Final Result Performing Organization Address [facility]/ZIP Co de Phone Number [facility] [address] [address] * Colonoscopy (02/26/2024 12:21 PM CDT) Anatomical Region Laterality Modality Other Narrative Procedure Note Tanmay Miller MD PhD - 02/26/2024 12:21 PM CDT ENDOSCOPY LAB Patient Name: Ector Phan Procedure Date: 02/26/2024 12:21 PM Date of : 1975 Admit Type: Outpatient Age: 48 Gender: Male Attending MD: Tanmay Miller MD,PHD Room: [facility] ENDOSCOPY ROOM 03 Note Status: Finalized [...] The scope was passed under direct vision.The [id number] was introduced through the anusand advanced to [...] Health Maintenance Insurance [employer] [employer] H[employer]/PPO Address: [address] [address] [facility] [employer] EM[employer] [facility] [employer]/PPO Address: [address] [address] [place] [address] Advance Directives For more information, please contact: [phone] * Full Code (Latest Code Status on File) Date Activated Date Inactivated Comments 02/26/2024 11:02 AM 02/26/2024 6:14 PM * Full Code Date Activated Date Inactivated Comments 12/21/2020 11:41 AM 12/21/2020 6:32 PM Care Teams [place] Relationship Specialty Start Date End Date Brodie Fierro MD [address] [address] PCP - General 07/07/16 Tanmay Miller MD PhD [address] [address] Referring Physician Gastroenterology 05/06/21
--- OUTSIDE RECORDS SUMMARY | 2024-09-22 17:37 | XMS_ITS | Referral Summary ---
Author Organization [facility] Address [address] [place] [address] Care Team Providers Care Paint Trimmer Pipe Bowls Name Role Phone Brodie Fierro MD Primary Care Provider [phone] Tanmay Miller MD PhD Unavailable [phone] Encounters Date Type Department Care Team Description 09/12/2024 1:00 PM CDT Infusion [facility] Infusion Therapy [facility] 5th [place] [address] [place] [address] Crohn's disease of both small and large intestine with fistula (HCC) (Primary Dx) 08/22/2024 Orders Only [facility] Gastroenterology [facility] 12th [place] [address] [place] [address] Candie Brooks RN 08/19/2024 Orders Only [facility] Department of Psychiatry [address] [facility] [address] [place] [address] Mary Anne Gonzalez PA 08/16/2024 Results Follow-Up [facility] Gastroenterology [address] [facility] 12th [place] [address] [place] [address] Tanmay Miller MD PhD 08/16/2024 Results Follow-Up [facility] Gastroenterology [address] [facility] 12th [place] [address] [place] [address] Tanmay Miller MD PhD 08/15/2024 1:23 PM CDT - 08/15/2024 11:59 PM CDT Hospital Encounter [facility] [address] [place] [address] Crohn's disease of both small and large intestine with fistula (HCC) Discharge Disposition: Discharge to home or self care 08/15/2024 2:15 PM CDT Lab [facility] Endocrinology Metabolism and Lipid [address] [place] [address] [place] [address] Crohn's disease of both small and large intestine with fistula (HCC) [K50.813] (Primary Dx) 08/15/2024 1:30 PM CDT Infusion [facility] Infusion Therapy [facility] [address] [place] [address] Crohn's disease of both small and large intestine with fistula (HCC) (Primary Dx) 08/14/2024 11:00 AM CDT Office Visit [facility] Department of Psychiatry [address] [facility] [address] [place] [address] Mary Anne Gonzalez PA ALAN (generalized anxiety disorder) (Primary Dx); MDD (major depressive disorder), recurrent, in partial remission 07/31/2024 Orders Only [facility] Gastroenterology [address] [place] [address] [place] [address] Candie Brooks RN 07/26/2024 Results Follow-Up [facility] Gastroenterology [address] [place] [address] Tanmay Miller MD PhD 07/25/2024 Documentation [facility] Gastroenterology [address] [place] [address] [place] [address] Candie Brooks, SRAVANI C. diff + 07/18/2024 1:30 PM MATCH MAKER Infusion [facility] Infusion Therapy [address] [place] [address] [place] [address] Crohn's disease of both small and large intestine with fistula (HCC) (Primary Dx) 07/17/2024 Telephone [facility] Psychiatry [address] [place] [address] Nadya Norton 07/09/2024 Documentation [facility] Gastroenterology [address] [facility] 12th [place] [address] [place] [address] Candie Brooks RN Symptoms/recommenda tions 07/09/2024 Orders Only [facility] Gastroenterology [facility] 12th [place] [address] [place] [address] Candie Brooks RN from Last 3 Months Allergies No known active allergies Medications INFLIXIMAB (REMICADE IV)Indications:l ast 05/18/2021. For crohns Infuse into a venous catheter One infusion every 4 weeks Active iieahqgw-dvvn-PW -calcium-mins 27 mg iron-400 mcg tabletIndication s:Vitamin [...] 04/22 Assessment & Plan (05/10/2023 5:45 PM MATCH MAKER): The patient's B12 was adequate on his current level of supplementation when last checked. We would like him to continue this for the foreseeable future Major depressive disorder, recurrent episode, mo derate 03/10/2023 Anal polyp 06/03/2021 Overview (06/03/2021): Added automatically from request for surgery [id number] Assessment & Plan (05/10/2023 5:44 PM MATCH MAKER): Happily the patient is not having any trouble since the excision in 2021. If these return, we will try to get him established with a new Colorectal surgeon. High risk medications (not anticoagulants) long- term use 10/16/2020 Assessment & Plan (05/09/2024 5:38 PM MATCH MAKER): He should continue close follow-up with his care team and stay up-to-date with his vaccinations. He plans to get Shingrix once he turns 49 but was offered the option of having it sooner with his infusion if desired as he is eligible before the age of 49 based on his immunosuppression Assessment & Plan (05/10/2023 5:44 PM MATCH MAKER): Based on the patient's immunosuppression, he is eligible for Shingrix and Prevnar 20 Recurrent kidney stones 2019 Assessment & Plan (05/09/2024 5:37 PM MATCH MAKER): Unfortunately patient is not a huge fan [...] 10/09/2019 Assessment & Plan (05/26/2020 10:36 AM MATCH MAKER): Patient with hx of mild OUD, uses opioids when he has pain from kidney stones and this triggers cravings for him. Sometimes he uses these prescription opioids to feel good but is now holding onto his prescriptions and locking them up. He denies getting opioids from other sources besides his rarely prescribed opioids. Assessment & Plan (03/27/2020 2:22 PM MATCH MAKER): Patient with hx of mild OUD, uses [...] 08/08/2018 Assessment & Plan (06/12/2022 7:47 AM MATCH MAKER): Patient meets criteria for ALAN, continue Cymbalta, continue Buspar. Assessment & Plan (12/10/2021 4:19 PM CDT): Patient meets criteria for ALAN, continue Cymbalta, continue Buspar. Assessment & Plan (05/13/2021 1:29 PM MATCH MAKER): Patient meets criteria for ALAN, continue Cymbalta, continue Buspar. Assessment & Plan (02/03/2021 4:53 PM CDT): Patient meets criteria for ALAN, continue Cymbalta, continue Buspar. Assessment & Plan (05/26/2020 10:36 AM MATCH MAKER): Patient meets criteria for ALAN, continue Cymbalta, continue Buspar. Start therapy. Assessment & Plan (03/27/2020 2:21 PM MATCH MAKER): Patient meets criteria for ALAN, continue Cymbalta, [...] Buspar. Assessment & Plan (04/02/2019 10:28 AM MATCH MAKER): Patient meets criteria for ALAN, continue Cymbalta. [...] 08/08/2018 Assessment & Plan (06/12/2022 7:47 AM MATCH MAKER): 46 yo M with h/o MDD, ALAN, [...] months Assessment & Plan (05/13/2021 1:28 PM MATCH MAKER): 45 yo M with h/o MDD, ALAN, [...] months Assessment & Plan (05/26/2020 10:36 AM MATCH MAKER): 44 yo M with h/o MDD, ALAN, [...] weeks Assessment & Plan (03/27/2020 2:22 PM MATCH MAKER): 44 yo M with h/o MDD, ALAN, [...] weeks Assessment & Plan (04/02/2019 10:57 AM MATCH MAKER): 43 yo M with h/o MDD, ALAN, [...] to [facility] for therapy, or [facility]. [facility] takes therapy patients as well. You could also go on [facility] or [employer] to find a therapist who takes your [...] (07/20/2018): Added automatically from request for surgery [id number] Assessment & Plan (05/09/2024 5:34 PM MATCH MAKER): Happily the patient's disease activity appears to [...] infusion. Assessment & Plan (05/10/2023 5:43 PM MATCH MAKER): Though the patient does not have 10 [...] on file Legal Sex Male 10:18 AM MATCH MAKER Gender Identity Not on file Sexual Orientation Straight 03/26/2020 2: 29 PM MATCH MAKER Last Filed Vital Signs Vital Sign Reading Time Taken Comments Blood Pressure 155/96 09/12/2024 1:00 PM CDT Pulse 86 09/12/2024 1:00 PM CDT Temperature 36.8 C (98.3 F) 05/09/2024 1:16 PM MATCH MAKER Respiratory Rate 16 09/12/2024 1:00 PM CDT Oxygen Saturation 98% 02/26/2024 1:25 PM CDT Inhaled Oxygen Concentration - - Weight 84.8 kg (187 lb) 05/09/2024 1:16 PM MATCH MAKER Height 188 cm (6' 2 ) 02/26/2024 [...] CALPROTECTIN, FECAL Routine 07/17/2024 6 :42 AM MATCH MAKER Crohn's disease of both small and large intestine with fistula (HCC) Abdominal pain Change in bowel habits Diarrhea, unspecified type Nausea and vomiting, unspecified vomiting type CLOSTRIDIUM DIFFICILE TOXIN B, QUALITATIVE, REAL-TIME PCR Routine 07/17/2024 6:42 AM MATCH MAKER CLOSTRIDIUM DIFFICILE TOXIN/GDH WITH REFLEX TO PCR Routine 07/17/2024 6:42 AM MATCH MAKER Crohn's disease of both small and large intestine with fistula (HCC) Abdominal pain Change in bowel habits Diarrhea, unspecified type Nausea and vomiting, unspecified vomiting type COLONOSCOPY 02/26/2024 12:21 PM CDT from Last 3 Months or Most Recently Relevant to Health Maintenance Results * T-SPOT.TB Blood (08/15/2024 1:23 PM CDT) [facility] T-SPOT.TB Negative SeeBelow Comment: Normal Value: [...] test. T-SPOT.TB Panel A Spot Count 0 [facility] T-SPOT.TB Panel B Spot Count 1 [facility] T-SPOT.TB Negative Control Passed [facility] T-SPOT.TB Positive Control Passed [facility] Comment: Test Performed at: [facility] [place] [address] SILVIA ZAPIEN,PHD Blood 08/15/2024 1:23 PM CDT 08/15/2024 5:17 PM CDT Narrative [facility] - 08/17/2024 11:52 AM CDT 2 small tubes sent Tanmay Miller MD PhD LAB MICROBIOLOGY - WebTuner L ORDERABLES Final Result [facility] Department [place] [address] * Hepatitis B core antibody, total Blood (08/15/2024 1:23 PM CDT) [facility] Hep B core IgG/IgM Nonreactive Nonreactive Blood 08/15/2024 1:23 PM CDT 08/15/2024 4:31 PM CDT Tanmay Miller MD PhD LAB MICROBIOLOGY - GENERA L ORDERABLES Final Result [facility] [place] [address] * Hepatitis B surface antibody (immune status) Blood (08/15/2024 1:23 PM CDT) [facility] HBsAb (immune status) Nonreactive Comment:This result is consi stent with a lack of immunity to Hepatitis B Virus when used in the setting of routine screening. Current interpretative data was last revised on 22 Blood 08/15/2024 1:23 PM CDT 08/15/2024 4:31 PM CDT Tanmay Miller MD PhD LAB MICROBIOLOGY - GENERA L ORDERABLES Final Result Performing Organization Address City/[facility] Co de Phone Number [facility] [place] [address] * Hepatitis B Surface Antigen Blood (08/15/2024 1:23 PM CDT) Pathologist [facility] HepBsAg Nonreactive Nonreactive Blood 08/15/2024 1:23 PM CDT 08/15/2024 4:31 PM CDT Tanmay Miller MD PhD LAB MICROBIOLOGY - GENERA L ORDERABLES Final Result Performing Organization Address [facility] de Phone Number [facility] [place] [address] * CBC without differential (08/15/2024 1:23 PM CDT) Pathologist [facility] White Blood Count 6.4 3.6 - 11.2 [...] PM CDT 08/15/2024 2:04 PM CDT Narrative [facility] - 08/15/2024 2:25 PM CDT Draw labs every 8 weeks prior maintenance doses Draw labs every 2 weeks prior to the induction doses Tanmay Miller MD PhD LAB BLOOD ORDERABLES Margaret l Result Performing Organization Address City/[facility] Co de Phone Number [facility] * CRP (acute phase) (08/15/2024 1:23 PM CDT) [facility] C-Reactive Protein, Acute <3.0 <5.0 mg/L [facility] Blood 08/15/2024 1:23 PM CDT 08/15/2024 2:04 PM CDT Narrative [facility] - 08/15/2024 2:52 PM CDT Draw labs every 8 weeks prior maintenance doses Draw labs every 2 weeks prior to the induction doses Tanmay Miller MD PhD LAB BLOOD ORDERABLES Margaret l Result Performing Organization Address [facility] de Phone Number [facility] * (ABNORMAL) Comprehensive metabolic panel (08/15/2024 1:23 PM CDT) [facility] Total Protein 8.1 6.1 - 8.4 g/dL [...] PM CDT 08/15/2024 2:04 PM CDT Narrative [facility] - 08/15/2024 3:13 PM CDT Specimen Hemolyzed Draw labs every 8 weeks prior maintenance doses Draw labs every 2 weeks prior to the induction doses Tanmay Miller MD PhD LAB BLOOD ORDERABLES Margaret Result [facility] * (ABNORMAL) Clostridium difficile Toxin B, Qualitative, Real-Time PCR (07/17/2024 6:42 AM MATCH MAKER) Pathologist [facility] C. difficile toxin DETECTED( A) NOT DETECTED [employer] Comment: The stool sample is POSITIVE [...] been established. This assay was performed by [employer](R) PCR. The performance characteristics of this assay have been determined by [employer]. Performance characteristics refer to the analytical performance of the test. For additional information, please refer to http://education.Goodwall/faq/AJR919 (This link is being provided for informational/educational purposes only.) 07/17/2024 6:42 AM MATCH MAKER 07/18/2024 6:34 AM MATCH MAKER Narrative [facility] - 07/25/2024 2:08 AM MATCH MAKER FASTING:NO FASTING: NO Tanmay Miller MD PhD LAB MICROBIOLOGY - GENERA L ORDERABLES Final Result Performing Organization Address [facility] Co de Phone Number [facility] [address] [address] * Calprotectin, fecal (07/17/2024 6:42 AM MATCH MAKER) Calprotectin, Stool 14 mcg/g [facility], Comment: Reference Range: <50 Normal 50-120 Borderline >120 Elevated LIQUID STOOL. Calprotectin in Crohn's disease and ulcerative colitis can be five to several thousand times above the reference population (50 mcg/g or less). Levels are usually 50 mcg/g or less in healthy patients and with irritable bowel syndrome. Repeat testing in 4-6 weeks is suggested for borderline values. Stool 07/17/2024 6:42 AM MATCH MAKER 07/18/2024 6:34 AM MATCH MAKER Narrative [facility] - 07/25/2024 2:08 AM MATCH MAKER FASTING:NO FASTING: NO Tanmay Miller MD PhD LAB BODY FLUIDS AND STOOL S ORDERABLES Final Result Performing Organization Address [facility] de Phone Number [facility] [employer]/[facility], [address] [place] [address] * Clostridium difficile Toxin/GDH with Reflex to PCR Stool (07/17/2024 6:42 AM MATCH MAKER) C difficile Toxins/GDH w/refl to PCR [facility] Comment: CLOSTRIDIUM DIFFICILE TOXIN/GDH W/REFL TO PCR Micro Number: [id number] Test Status: Final Specimen Source: Stool Specimen Quality: Adequate GDH Antigen: Detected Toxin A and B: Not Detected COMMENT: Indeterminate. Specimen forwarded for toxigenic C. difficile PCR testing. For additional information, please refer to http://education.Goodwall/faq/ZAR179 (This link is being provided for informational/educational purposes only.) Stool 07/17/2024 6:42 AM MATCH MAKER 07/18/2024 6:34 AM MATCH MAKER Narrative [facility] - 07/25/2024 2:08 AM MATCH MAKER FASTING:NO FASTING: NO Tanmay Miller MD PhD LAB MICROBIOLOGY - GENERA L ORDERABLES Final Result [facility] [address] [place] [address] * Colonoscopy (02/26/2024 12:21 PM CDT) Anatomical Region Laterality Modality Other Narrative Procedure Note Tanmay Miller MD PhD - 02/26/2024 12:21 PM CDT ENDOSCOPY LAB Patient Name: Ector Phan Procedure Date: 02/26/2024 12:21 PM Date of : 1975 Admit Type: Outpatient Age: 48 Gender: Male Attending MD: Tanmay Miller MD,PHD Room: [facility] ENDOSCOPY ROOM 03 Note Status: Finalized [...] The scope was passed under direct vision.The [id number] was introduced through the anusand advanced to [...] Health Maintenance Insurance [employer] Address: [address] [address] [place] [address] [facility] [employer] [employer] [employer] Address: [address] [address] [employer] Address: [address] [address] Advance Directives For more information, please contact: [phone] * Full Code (Latest Code Status on File) Date Activated Date Inactivated Comments 02/26/2024 11:02 AM 02/26/2024 6:14 PM * Full Code Date Activated Date Inactivated Comments 12/21/2020 11:41 AM 12/21/2020 6:32 PM Care Teams Paint Trimmer Pipe Bowls Relationship Specialty Start Date End Date Brodie Fierro MD [address] [place] [address] PCP - General 07/07/16 Tanmay Miller MD PhD [address] [address] Referring Physician Gastroenterology 05/06/21
--- OUTSIDE RECORDS SUMMARY | 2024-09-22 17:37 | XMS_ITS | Encounter Summary ---
Author Organization [facility] Address [address] [place] [address] Phone Care Team Providers Care Program Evaluation Consultant Name Role Phone Brodie Fierro MD Primary Care Provider [phone] Belia Licona MD Unavailable [phone] Tanmay Miller MD PhD Unavailable [phone] Encounter Details Date Type Department Care Team [...] on file Legal Sex Male 10:18 AM TRADE SHOW SPECIALIST Gender Identity Not on file Sexual Orientation Straight 03/26/2020 2: 29 PM TRADE SHOW SPECIALIST documented as of this encounter Plan of Treatment Not on file documented as of this encounter Procedures Procedure Name Priority Date/Time Associated Diagnosis Comments SCAN - LABS 05/09/2018 documented in this encounter Results * SCAN - LABS (05/09/2018) us Provider Scanning Final Result documented in this encounter Visit Diagnoses Not on filedocumented in this encounter Care Teams Program Evaluation Consultant Relationship Specialty Start Date End Date Brodie Fierro MD [address] [place] [address] PCP - General 07/07/16 Belia Licona MD [address] [place], [place] [id number] Resident Psychiatry 06/05/20 11/16/20 Tanmay Miller MD PhD [address] [place] [address] Referring Physician Gastroenterology 05/06/21 documented as of this encounter
[2024-09-22 17:55] LABS: Influenza A QL RT-PCR Negative (Negative); Influenza B QL RT-PCR Negative (Negative); RSV RNA, RT-PCR Negative (Negative); SARS-CoV-2 RNA PCR Negative (Negative)
--- NOTE | 2024-09-22 17:58 | ED.MALEGU ---
HPI - Male Genitourinary General Chief complaint: Urogenital-Male Stated complaint: Kidney infection Time Seen by Provider: 09/22/24 16:28 Source: patient Mode of arrival: ambulatory Limitations: no limitations History of Present Illness HPI Narrative: Patient is a 48-year-old male, with PMH of Crohn's disease, kidney stones, who presents the ED with report of fevers, chills. Patient reports he began feeling ill last night and developed cold taking chills, fever of 102? F. He was given Tylenol ibuprofen overnight. Has not had any further fevers today that he is aware of. He has had intermittent headaches, intermittent right flank pain. Has previous history of kidney stones. Sees Dr. Paula. Had a CT scan performed as an outpatient yesterday, but has not heard the results of this yet. Denies abdominal pain. Denies dysuria. He does note that his urine has been dark in color and somewhat malodorous. Denies cough or cold symptoms, diarrhea, constipation, rectal bleeding. Related Data Home Medications ?Medication ?Instructions ?Recorded ?Confirmed ?Last Taken ?Type buspirone 5 mg tablet 15 mg PO DAILY 01/08/20 05/10/22 Unknown History multivitamin,iq-qfgx-xpwdmsis 1 tablet PO DAILY 01/08/20 05/10/22 Unknown History (Complete Multivitamin tablet) infliximab-dyyb 100 mg intravenous 100 mg IV USEASDIRECTD 07/22/20 05/10/22 10/20/20 History solution (Inflectra) sertraline 100 mg tablet 100 mg PO DAILY 04/06/23 Unknown History Allergies Allergy/AdvReac Type Severity Reaction Status Date / Time No Known Allergies Allergy Verified 09/22/24 16:18 Review of Systems Review of Systems: All systems reviewed & are unremarkable except as noted in HPI. All systems reviewed & are unremarkable except as noted in HPI and below PMFSH Past Medical History Medical History History of kidney stones with multiple lithotripsies Depression with anxiety Hypertension Crohn's disease, unspecified, without complications Surgical History Surgical History History of hemorrhoidectomy 2003 History of inguinal hernia repair History of colon resection 1990 Family History Family History Sibling Patient's brother is in good health Father Heart failure Acute myocardial infarction, Onset Age: 42 Mother COPD (chronic obstructive pulmonary disease) Emphysema lung Grandparent Stomach cancer Other Stomach cancer Social History Social History Social History: Patient lives at home with his . Lifelong nonsmoker. Rarely drinks alcohol. Denies drug use. Full code. He works in [employer] at [employer]. He nominates his to be the individual who would make medical decisions for him if he is unable. Smoking status: Never smoker Second hand tobacco smoke exposure: No Alcohol intake: never Lack of Transportation: No Lack of Food: Never True Current Housing: I Have Housing Concerned About Future Housing: No Difficulty Paying Gas/Electric Bills: No Difficulty Paying for Meds: No Currently Unemployed: No Education: Bachelor's Degree Difficulty w/ Childcare or Family Care: No Spiritual care concerns: No Exam Narrative: GENERAL: Well appearing, well-nourished, non-toxic, in no acute distress. HEAD: Normocephalic, atraumatic. NECK: No meningeal signs. RESPIRATORY: Airway patent, respirations nonlabored. Clear to auscultation bilaterally, no rales, rhonchi, wheezing. CARDIOVASCULAR: Regular rate and rhythm without murmurs, rubs, or gallops. ABDOMINAL: Soft, no tenderness, nondistended. Normoactive BS. No significant CVA tenderness to percussion. MUSCULOSKELETAL: Moves all extremities. No gross deformities. SKIN: Warm, dry, normal color. NEURO: A&O X3. Speech clear. Cranial nerves II-XII grossly intact. Steady gait. No ataxic movements. No focal deficits. PSYCHIATRIC: Appropriate mood and affect. Normal interaction. Course Vital Signs Vital signs: Vital Signs Temperature 98.4 F 09/22/24 16:14 Pulse Rate 86 09/22/24 16:14 Respiratory Rate 18 09/22/24 16:14 Blood Pressure 123/80 09/22/24 16:14 Pulse Oximetry 100 09/22/24 16:14 Oxygen Delivery Room Air 09/22/24 16:14 Temperature 98.4 F 09/22/24 16:14 Pulse Rate 86 09/22/24 16:14 Respiratory Rate 18 09/22/24 16:14 Blood Pressure 123/80 09/22/24 16:14 Pulse Oximetry 100 09/22/24 16:14 Oxygen Delivery Room Air 09/22/24 16:14 MDM - Male Genitourinary MDM Narrative Medical decision making narrative: Patient presented to ED with fevers, chills, headache, flank pain. Began last night. Patient improved currently. He is afebrile upon arrival to the ED today. Vital signs are stable. Exam is fairly unremarkable. Neurologically intact. No meningismus. Cbc with white blood cell count of 18.3. Neutrophil predominance. No bandemia. CMP showed evidence of hypokalemia at 2.8. Oral and IV replacement ordered. Patient is able to tolerate p.o. intake at this time. Otherwise stable creatinine, consistent with previous records. Fluids are ongoing. Magnesium borderline at 1.7. Given IV replacement. Lactic acid within normal range at 1.3. Total bili slightly elevated to 1.5, though remainder of LFTs are within normal range. No right upper quadrant tenderness on exam. UA is completely clear. No signs of infection. No hematuria. Viral swabs are negative. CT of abdomen/pelvis was reviewed from yesterday, does show nonobstructing right nephrolithiasis, no ureterolithiasis, no other abnormalities. Patient does not have any focal tenderness throughout abdominal exam today to suggest need for repeat imaging. No evidence of surgical abdomen. Chest x-ray is clear. Patient denying respiratory symptoms. Unclear etiology of leukocytosis. No obvious source of infection at this time. Denies any other rashes, wounds, GI symptoms. Patient is not meeting sepsis criteria. Overall he has remained hemodynamically stable throughout ED stay. Feel symptoms may be related to viral syndrome. Discussed further management of fevers at home, recommended close follow-up with PCP for further evaluation and repeat laboratory testing within the next [address] outpatient orders for repeat BMP and CBC within the next 1 week to have white blood cell count and potassium repeated. He was given 40 mEq of KCl oral and IV. Will discharge on 3 day course of KCl 20 mEq for home. Patient does have history of previous hypokalemia, which was thought to be related to poor absorption related to his Crohn's disease. He has previously been on potassium supplementation in the past and is familiar with this. Discussed lab and imaging findings extensively with patient and at bedside. Utilize shared decision-making regarding discharge versus admission. He does feel comfortable going home. He has not developed any further symptoms. Discussed very strict return precautions. Patient and family voiced understanding, in agreement with plan. Discharged in stable condition. Vital signs stable at time of D/C. Medical Records Attestation: I reviewed the patient's medical records. Lab Data Attestation: I reviewed the patient's lab results. 09/22/24 17:14 09/22/24 17:14 Labs: Lab Results 09/22/24 09/22/24 09/22/24 Range/Units 16:21 17:13 17:14 WBC 18.3 H (4.5-10.0) K/mm3 RBC 3.92 L (4.6-6.20) M/mm3 Hgb 12.0 L (14.0-18.0) g/dL Hct 35.7 L (42.0-52.0) % MCV 91.1 (80-100) fl MCH 30.6 (26-34) pg MCHC 33.6 (32-36) g/dl RDW 12.8 (11.5-14.5) % Plt Count 191 (150-375) k/mm3 MPV 9.9 (7.4-10.4) fl Immature Gran % (Auto) 0.6 H (0-0.5) % Neut % (Auto) 88.7 H (45.5-73.1) % Lymph % (Auto) 5.0 L (18.3-44.2) % [place] % (Auto) 4.9 (2.6-8.5) % Eos % (Auto) 0.5 (0-4.4) % Baso % (Auto) 0.3 (0.2-1.2) % Lymph # (Auto) 0.91 (0.9-3.2) K/mm3 [place] # (Auto) 0.9 H (0.1-0.6) K/mm3 Eos # (Auto) 0.1 (0-0.3) K/mm3 Baso # (Auto) 0.1 (0.0-0.1) K/mm3 Abs Immat Gran (auto) 0.11 H (0.00-0.031) K/mm3 Absolute Neuts (auto) 16.2 H (1.3-6.7) K/mm3 Absolute Nucleated RBC 0.000 (0.0-0.012) K/mm3 Band Neutrophils % Not Reportable Nucleated RBC % 0.0 (0.0-0.2) % Atypical Lymphocytes Present Platelet Estimate Adequate (Adequate) Hypochromasia 1+ Schistocytes None seen Sodium 137 (137-145) mmol/L Potassium 2.8 L* (3.4-5.0) mmol/L Chloride 105 (98-107) mmol/L Carbon Dioxide 23 (22-30) mmol/L Anion Gap 9 (4-12) mmol/L BUN 14 D (9-20) mg/dL Creatinine 1.36 H (0.7-1.3) mg/dL Estim Creat Clear Calc 69 ml/min Estimated GFR 56 L (59 - ) Glucose 106 (65-110) mg/dL Lactic Acid 1.3 (0.7-2.0) mmol/L Calcium 8.4 (8.4-10.2) mg/dL Magnesium 1.7 (1.6-2.3) mg/dL Total Bilirubin 1.5 H (0.2-1.3) mg/dL AST 28 (17-59) U/L ALT 35 (6-50) U/L Alkaline Phosphatase 48 (38-126) U/L Total Protein 7.0 (6.3-8.2) g/dL Albumin 3.8 (3.5-5.1) g/dL Urine Color Yellow (Yellow) Urine Appearance Clear (Clear) Urine pH 6.0 (5.0-9.0) Ur Specific [place] 1.010 (1.001-1.035) Urine Protein Trace (Negative) mg/dL Urine Glucose (UA) Negative (Negative) mg/dL Urine Ketones Negative (Negative) mg/dL Ur Blood (Man) Negative (Negative) Urine Nitrate Negative (Negative) Urine Bilirubin Negative (Negative) Urine Urobilinogen 0.2 (<2.0) mg/dL Leukocyte Esterase Rfl Negative (Negative) SEE/UL Urine RBC 0-2 (0-2) /hpf Urine WBC 0-5 (0-3) /hpf Ur Squamous Epith Cells None seen (Few) /hpf Urine Bacteria None seen /hpf Urine Casts 0-2 Influenza A (RT-PCR) Negative (Negative) Influenza B (RT-PCR) Negative (Negative) RSV (RT-PCR) Negative (Negative) SARS-CoV-2 RNA (RT-PCR) Negative (Negative) Imaging Data Attestation: I personally reviewed and interpreted this imaging study as follows: Radiologist's impression: ITS Impressions Chest X-Ray 09/22/24 19:12 IMPRESSION: No acute cardiopulmonary process. Discharge Plan Discharge Clinical Impression: Hypokalemia Leukocytosis Qualifiers: Leukocytosis type: unspecified Qualified Code(s): D72.829 - Elevated white blood cell count, unspecified Fever Qualifiers: Fever type: unspecified Qualified Code(s): R50.9 - Fever, unspecified Patient Disposition: Home Condition: Stable Instructions: Antibiotic Form, Fever in Adults (ED), Hypokalemia (ED), Viral Syndrome (ED) Additional Instructions: Your potassium was low here. You were given replacement in the ED. Recommend taking oral potassium supplementation over the next 5 days as prescribed. Recommend obtaining repeat laboratory testing for your potassium and your white blood cell count within the next 1 week. Take lab order sheets with you to outpatient lab. Continue Tylenol and ibuprofen as needed for fevers. Stay well hydrated at home. Recommend close follow-up with your primary care doctor for further evaluation. Return to the ED if you experience worsening or severe symptoms, persistent fevers, chest pain, difficulty breathing, unable to keep down food or drink, severe abdominal or back pain, severe headache, severe dizziness, passing out, or any other symptoms of concern. Patient Language: Wolof Prescriptions: New potassium chloride 20 mEq packet 20 meq PO DAILY 5 Days Qty: 5 0RF No Action Complete Multivitamin Tablet 1 tablet PO DAILY buspirone 5 mg tablet 15 mg PO DAILY Inflectra 100 mg recon soln 100 mg IV USEASDIRECTD Rx Instructions: every 6 weeks tamsulosin [Flomax] 0.4 mg capsule 0.4 mg PO DAILY Qty: 6 0RF ibuprofen 400 mg tablet 400 mg PO TID PRN (Reason: pain) Qty: 20 0RF ondansetron 4 mg tablet,disintegrating 4 mg PO Q8H PRN (Reason: nausea and vomiting) Qty: 14 0RF tamsulosin [Flomax] 0.4 mg capsule 0.4 mg PO DAILY Qty: 14 0RF hydrocodone-acetaminophen 5-325 mg tablet 1 tablet PO Q8H PRN (Reason: pain) Qty: 14 0RF potassium chloride 20 mEq tablet extended release 20 meq PO DAILY Qty: 20 0RF Paxlovid 300 mg (150 mg x 2)-100 mg tablets,dose pack See Rx Instructions PO .COMPLEX Qty: 30 0RF Rx Instructions: take TWO 150 mg tablets of nirmatrelvir with ONE 100 mg tablet of ritonavir twice daily for 5 days PO sertraline 100 mg tablet 100 mg PO DAILY lisinopril 20 mg tablet 20 mg PO DAILY Qty: 90 0RF Other Ambulatory Orders: Basic Metabolic Panel (Routine) Timeframe: 1 Week Location: Determined by Patient Ordered By: Amna Schultz Complete Blood Count with Diff (Routine) Timeframe: 1 Week Location: Determined by Patient Ordered By: Amna Schultz Follow-up/Referrals: Ava,FRIDA Madrid [Primary Care Provider] - Time of Disposition: 21:16
[2024-09-22 18:10] LABS: Magnesium 1.7 mg/dL (1.6-2.3)
[2024-09-22] MEDS: POTASSIUM CHLORIDE INJ 40 MEQ in SODIUM CHLORIDE 0.9% IV 500 ML 130 MEQ IVPB (18:18)
[2024-09-22] MEDS: POTASSIUM CHLORIDE 20 MEQ ER TABLET 40 MEQ PO (18:19)
[2024-09-22 18:36] LABS: Atypical Lymphocytes Present; Hypochromasia 1+; Platelet Estimate Adequate (Adequate)
[2024-09-22 18:37] LABS: Schistocytes None Seen
[2024-09-22] MEDS: MAGNESIUM SULF 2 GM/WATER 50ML 2 GM/50 ML BAG IVPB (19:01)
== END 2024-09-22 22:26 | disposition home or self-care (01) ==
PROVIDERS: Emergency Medicine; Emergency Provider Physician Assistant; PCP Nurse Practitioner Family
DX: E87.6 Hypokalemia (principal); D72.829 Elevated white blood cell count, unspecified; R50.9 Fever, unspecified; Z20.822 Contact with and (suspected) exposure to COVID-19; I10 Essential (primary) hypertension; K50.90 Crohn's disease, unspecified, without complications; F41.9 Anxiety disorder, unspecified; F32.A Depression, unspecified
CPT/HCPCS: 36415; 71046; 80053; 81001; 83605; 83735; 85025; 87637; 96361; 96365; 96366; 96368; 99284; A9270; J3475; J3480; J7030; J7040

== ENCOUNTER 2025-05-14 09:33 | Emergency (ER) | payer OTHER, SELFPAY ==
[2025-05-14 09:44] VITALS: BP 123/96; PULSE 84; RESP 18; TEMP 36.6; O2SAT 100
--- NOTE | 2025-05-14 09:58 | ED.URI ---
HPI - URI/Sore Throat General Chief Complaint: Upper Respiratory Infection Stated Complaint: Sore throat Time Seen by Provider: 05/14/25 10:01 Source: patient, RN notes reviewed and old records reviewed Mode of arrival: ambulatory Limitations: no limitations History of Present Illness HPI Narrative: 49-year-old male presents to the [facility] with complaints of a sore throat when he woke up about 330 this morning. Approximately 6 hours prior to arrival. Noticed that is throat was red, inflamed. No treatment prior to arrival. Onset (ago): hour(s) (6) Treatments prior to arrival: none Related Data Home Medications ?Medication ?Instructions ?Recorded ?Confirmed ?Last Taken ?Type multivitamin,nn-ouex-sabujvnx 1 tablet PO DAILY 01/08/20 05/10/22 Unknown History (Complete Multivitamin tablet) infliximab-dyyb 100 mg intravenous 100 mg IV USEASDIRECTD 07/22/20 05/10/22 10/20/20 History solution (Inflectra) buspirone 15 mg tablet mg 05/14/25 Unknown History duloxetine 30 mg capsule,delayed mg PO 05/14/25 Unknown History release duloxetine 60 mg capsule,delayed mg PO 05/14/25 Unknown History release lisinopril 40 mg tablet mg 05/14/25 Unknown History Allergies Allergy/AdvReac Type Severity Reaction Status Date / Time No Known Allergies Allergy Verified 05/14/25 09:54 Review of Systems Review of Systems: All systems reviewed & are unremarkable except as noted in HPI and below Constitutional: Constitutional: Reports no additional constitutional complaints ENT: Reports as per HPI and Reports sore throat Cardiovascular: Cardiovascular: Reports no additional cardiovascular complaints, Denies chest pain and Denies dyspnea Respiratory: Respiratory: Reports no additional respiratory complaints, Denies chest congestion, Denies cough and Denies dyspnea Musculoskeletal: Musculoskeletal: Reports no additional musculoskeletal complaints Integumentary/Breasts: Skin/Breast: Reports system reviewed and no additional complaints, except as docu PMFSH Past Medical History Medical History History of kidney stones with multiple lithotripsies Depression with anxiety Hypertension Crohn's disease, unspecified, without complications Surgical History Surgical History History of hemorrhoidectomy 2004 History of inguinal hernia repair History of colon resection 1990 Family History Family History Sibling Patient's brother is in good health Father Heart failure Acute myocardial infarction, Onset Age: 42 Mother COPD (chronic obstructive pulmonary disease) Emphysema lung Grandparent Stomach cancer Other Stomach cancer Social History Social History Social History: Patient lives at home with his . Lifelong nonsmoker. Rarely drinks alcohol. Denies drug use. Full code. He works in [employer] at [employer]. He nominates his to be the individual who would make medical decisions for him if he is unable. Smoking status: Never smoker Second hand tobacco smoke exposure: No Alcohol intake: never Lack of Transportation: No Lack of Food: Never True Current Housing: I Have Housing Concerned About Future Housing: No Difficulty Paying Gas/Electric Bills: No Difficulty Paying for Meds: No Currently Unemployed: No Education: Bachelor's Degree Difficulty w/ Childcare or Family Care: No Spiritual care concerns: No Comments At the time of my signature, I reviewed and agree with the nursing past medical, surgical, social, and family history. There is no relevant family history pertinent to the patient complaint. Exam Const: General: cooperative, healthy appearing, comfortable, no acute distress, well developed, alert and well nourished Nutritional Appearance: well nourished Orientation/consciousness: patient oriented x3 Limitations: no limitations HENMT: Head: normal to inspection Ears: hearing grossly normal bilaterally, external ears normal, TM's normal bilaterally, EAC's normal, mastoids normal and no periauricular adenopathy Mouth: Yes Normal oral and palatal mucosa present, Yes lip normal, Yes tongue normal and Yes moist mucous membranes Throat: posterior oropharynx normal, tonsils normal, uvula midline and no uvular edema Eyes: General: appearance normal, both eyes and all related structures Alignment and Position: alignment normal Neck: Neck: normal visual inspection, full ROM, no lymphadenopathy and no meningeal signs Chest: Chest palpation & inspection: normal inspection of the chest Resp: Effort & Inspection: normal respiratory effort and able to speak in complete sentences Auscultation: clear to auscultation bilaterally, no crackles, no rales, no rhonchi and no wheezes Cardio: Rate: regular rate Skin: General skin exam: normal color and no rashes or lesions noted Neuro: General: patient oriented x3, gait normal, moves all extremities and no meningeal signs Cognition (Neuro): normal cognition Speech: normal speech Gait exam (Neuro): Normal gait present Extrem: General: normal to inspection, full ROM, capillary refill normal and normal gait Psych: Appearance: grossly normal and well kempt Mental Status: mental status grossly normal Speech and movement: Normal speech and movement present and Clear speech present Affect: normal affect Attitude: cooperative Course Course Level of Care: Express Care Visit Vital Signs Vital signs: Vital Signs Temperature 97.9 F 05/14/25 09:44 Pulse Rate 84 05/14/25 09:44 Respiratory Rate 18 05/14/25 09:44 Blood Pressure 123/96 H 05/14/25 09:44 Pulse Oximetry 100 05/14/25 09:44 Oxygen Delivery Room Air 05/14/25 09:44 Temperature 97.9 F 05/14/25 09:44 Pulse Rate 84 05/14/25 09:44 Respiratory Rate 18 05/14/25 09:44 Blood Pressure 123/96 H 05/14/25 09:44 Pulse Oximetry 100 05/14/25 09:44 Oxygen Delivery Room Air 05/14/25 09:44 reviewed MDM MDM Narrative Medical decision making narrative: Patient sitting in exam room. Patient is nontoxic, vitals are stable. Patient presents with 6 hours of a sore throat. No acute findings noted on exam. Patient is flu, COVID and strep were negative, will send for culture of strep Discussed with patient and his it is recommended that they retested they have concerns for flu were COVID once he had some 24-48 hour rowena. Both verbalized understanding. Patient is appropriate for outpatient treatment with [id number] products for viral URI Discharge instructions reviewed with patient, as well as provided in writing per nursing staff. The instructions also include specific and strict return/GO TO THE ER as well as f/u information. All questions have been answered, and the patient deny any further questions with discharge and discharge plan. Some parts of this dictation were generated by voice recognition software and may contain typographical and/or grammatical inaccuracies. Differential Diagnosis Differential Diagnosis: Differential diagnostic considerations for upper respiratory infection include upper respiratory infection, croup, otitis media, sinusitis, viral infection, bronchitis, influenza, pharyngitis, strep, uvulitis.? Lab Data Labs: Lab Results 05/14/25 05/14/25 Range/Units 10:03 10:08 POC Influenza A Ag Negative (Negative) POC Influenza B Ag Negative (Negative) POC SARS CoV-2 Ag Negative (Negative) POC Grp A Strep Screen Negative (Negative) Reviewed Discharge Plan Discharge Clinical Impression: Pharyngitis Qualifiers: Pharyngitis/tonsillitis etiology: unspecified etiology Qualified Code(s): J02.9 - Acute pharyngitis, unspecified Patient Disposition: Home Condition: Stable Instructions: Antibiotic Form, Pharyngitis (ED) Additional Instructions: Your rapid strep swab was negative today at [facility]. A throat culture will be sent to the laboratory for further testing. If the test is positive, you will receive a phone call within 48 hours and an appropriate antibiotic will be initiated at that time. Your rapid COVID test were negative Your rapid flu test was negative Your symptoms are likely due to a viral illness, which is not treated with antibiotics. Typically viral infections last 7-10 days, can linger for couple of weeks. It is very important to treat your symptoms. Drink plenty of water, Gatorade, Pedialyte, ice pops or Jell-O. -Alternate Tylenol and Motrin per package directions for fever or pain. You can alternate every 4 hours -Antihistamine medication such as Zyrtec/Claritin/Prabha during the day can help improve symptoms. -doing daily nasal irrigations can help relieve pressure your sinuses. Things like a Neti pot -Use Flonase twice a day for 5 days then daily to help reduce the inflammation and dry up your sinuses. -You can also use Mucinex. Be sure to drink plenty of water with this medication at least 8 ounces with every dose and it is important to drink 8 to 10 glasses of water per day. Water is a natural decongestant -Eat and drink things that are easy to swallow, like tea or soup, or popsicles. -Oral rinses such as: Salt water gargles and/or may use topical anesthetic (eg. Chloraseptic spray) or lozenges to relieve dryness or throat pain). -Frequent hand washing or hand appraisal manager is one of the best ways to prevent spread of infection. -Using a vaporizer or humidifier at night will also help thin secretions and help with coughing up phlegm. -Follow up with primary care provider in 7-10 days if condition is not improving - For new or worsening symptoms go directly to the nearest ER Patient Language: Uzbek Prescriptions: No Action lisinopril 40 mg tablet buspirone 15 mg tablet duloxetine 30 mg capsule,delayed release(DR/EC) PO Patient Comments: 90 mg total (30 + 60) duloxetine 60 mg capsule,delayed release(DR/EC) PO Patient Comments: 90 mg total (30 + 60) Complete Multivitamin Tablet 1 tablet PO DAILY Inflectra 100 mg recon soln 100 mg IV USEASDIRECTD Rx Instructions: every 6 weeks Follow-up/Referrals: Ava,FRIDA Madrid [Primary Care Provider, Unknown] - 2 Weeks Clinical Impression: Pharyngitis Stand Alone Forms: Work/School Release IP Time of Disposition: 10:13
[2025-05-14 10:06] LABS: EDSTREPNEGPOS1 Negative (Negative)
[2025-05-14 10:13] LABS: EDCOVIDSCREEN Negative (Negative); EDINFLUASCREEN Negative (Negative); EDINFLUBSCREEN Negative (Negative)
== END 2025-05-14 10:21 | disposition home or self-care (01) ==
PROVIDERS: Emergency Provider Nurse Practitioner; PCP Nurse Practitioner Family
DX: J02.9 Acute pharyngitis, unspecified (principal); Z20.822 Contact with and (suspected) exposure to COVID-19; I10 Essential (primary) hypertension; K50.90 Crohn's disease, unspecified, without complications; F41.8 Other specified anxiety disorders
CPT/HCPCS: 87081; 87426; 87804; 87880; 99213; G0463